=== PATIENT | male | born 1945 | race Two or more races ===

== ENCOUNTER 2024-02-18 13:54 | Inpatient (IN) | payer MEDICAID, OTHER ==
[~2024-02-18] VITALS: Ht 170.2 cm; Wt 92.8 kg
[2024-02-18 15:18] LABS: Basophils # (auto) 0 10 ^3/uL (0-0.2); Basophils % (auto) 0.7 % (0.0-2.0); Eosinophils # (auto) 0.1 10 ^3/uL (0-0.8); Eosinophils % (auto) 1.1 % (0.0-7.0); Hematocrit 39.2 % (41.0-53.0); Hemoglobin 13.3 g/dL (13.5-17.5); Lymphocytes # (auto) 1.4 10 ^3/uL (0.4-5.4); Lymphocytes % (auto) 24.4 % (10.0-50.0); Mean Corpuscular Hemoglobin 30.8 pg (28.0-32.0); Mean Corpuscular Hgb Conc. 33.9 g/dL (32.0-36.0); Mean Corpuscular Volume 90.8 fL (80.0-100.0); Monocytes # (auto) 0.7 10 ^3/uL (0-1.3); Monocytes % (auto) 11.9 % (0.0-12.0); Neutrophils # (auto) 3.5 10 ^3/uL (1.6-8.6); Neutrophils % (auto) 61.9 % (37.0-80.0); Platelet Count (auto) 239 10^3/uL (140-450); Red Blood Cells 4.32 10^6/uL (4.5-5.90); Red Cell Distribution Width 13.5 % (11.8-14.3); White Blood Cell 5.6 10^3/uL (4.4-10.8)
[2024-02-18 15:26] LABS: Chloride 104 mmol/L (98-107); Potassium 4.2 mmol/L (3.5-5.1)
[2024-02-18 15:27] LABS: Anion Gap 4 (5-15); Carbon Dioxide 28 mmol/L (20-31)
[2024-02-18 15:32] LABS: BUN/Creatinine Ratio 20.5 (10.0-20.0); Glucose 101 mg/dL (74-106)
--- NOTE | 2024-02-18 15:36 | DVH ---
Bilateral lower extremity venous duplex Clinical History: LEG SWELLING, HX OF DVT Comparison: None Technique: Duplex doppler evaluation of the deep venous systems of both lower extremities from the common femora l veins to the popliteal veins including color doppler and spectral/pulsed waveform analysis was perf ormed. Findings: RIGHT SIDE: The common femoral vein demonstrates appropriate compressibility and waveform variability. There is compressibility/patency of the great saphenous vein at the proximal thigh. The femoral vein demonstrates appropriate compressibility and waveform variability. The deep femoral vein demonstrates appropriate compressibility and waveform variability. The popliteal vein demonstrates appropriate compressibility and waveform variability. There is normal compressibility at the tibioperoneal trunk. LEFT SIDE: The common femoral vein demonstrates appropriate compressibility and waveform variability. There is compressibility/patency of the great saphenous vein at the proximal thigh. The femoral vein demonstrates appropriate compressibility and waveform variability. The deep femoral vein demonstrates appropriate compressibility and waveform variability. The popliteal vein demonstrates appropriate compressibility and waveform variability. There is normal compressibility at the tibioperoneal trunk. Impression: 1. No right or left femoropopliteal venous thrombosis.
[2024-02-18 15:40] LABS: Blood Urea Nitrogen 24 mg/dL (9-23); Calcium 11.1 mg/dL (8.7-10.4); Sodium 136 mmol/L (136-145); Uric Acid 10.1 mg/dL (3.7-9.2)
--- NOTE | 2024-02-18 17:44 | ED.PDOC ---
Musculoskeletal HPI Comments 78y M who presents to the ED for chief complaint of lower extremity pain. Pt states he has been having RLE swelling for the past 1 week with associated R hand swelling for the past 1 days. Pt states he recently had DVT in L leg in 2023 and got worried and came to the ED for evaluation. Pt does state he was placed on eliquis which he takes to this day. Pt now in the ED, in no noted respiratory distress. Pt otherwise denies any other symptoms at this time. Pt otherwise has noted stable vitals with noted 02 sat of 95% on room air. Pt otherwise denies any other symptoms at this time. Chief Complaint: Lower Extremity Time Seen by MD: 17:39 Reviewed Notes: Medications Allergies: Coded Allergies: NO KNOWN ALLERGIES (Unverified , 02/18/24) Information Source: Patient, Relative Mode of Arrival: Wheelchair Brought in by: daughter Past Medical History Past Medical History (Other): DVT, gout Constitutional: denies: chills, diaphoresis, fatigue, fever, malaise, sweats, weakness, others EENTM: denies: blurred vision, double vision, ear bleeding, ear discharge, ear drainage, ear pain, ear ringing, eye pain, eye redness, hearing loss, mouth pain, mouth swelling, nasal discharge, nose bleeding, nose congestion, nose pain, photophobia, tearing, throat pain, throat swelling, voice changes, others Respiratory: denies: cough, hemoptysis, orthopnea, SOB at rest, shortness of breath, SOB with excertion, stridor, wheezing, others Cardiovascular: denies: chest pain, dizzy spells, diaphoresis, Dyspnea on exertion, edema, irregular heart beat, left arm pain, lightheadedness, palpitations, PND, syncope, others Gastrointestinal: denies: abdomen distended, abdominal pain, blood streaked bowels, constipated, diarrhea, dysphagia, difficulty swallowing, hematemesis, melena, nausea, poor appetite, poor fluid intake, rectal bleeding, rectal pain, vomiting, others Genitourinary: denies: burning, dysuria, flank pain, frequency, hematuria, incontinence, penile discharge, penile sore, pain, testicle pain, testicle swelling, urgency, others Neurological: denies: dizziness, fainting, headache, left sided numbness, left sided weakness, numbness, paresthesia, pre-existing deficit, right sided numbness, right sided weakness, seizure, speech problems, tingling, tremors, weakness, others Musculoskeletal: reports: joint swelling; denies: back pain, gout, joint pain, muscle pain, muscle stiffness, neck pain, others Integumetry: denies: bruises, change in color, change in hair/nails, dryness, laceration, lesions, lumps, rash, wounds, others Allergic/Immunocompromised: denies: Difficulty Healing, Frequent Infections, Hives, Itching, others Hematologic/Lymphatic: denies: anemia, blood clots, easy bleeding, easy bruising, swollen glands, others Endocrine: denies: excessive hunger, excessive sweating, excessive thirst, excessive urination, flushing, intolerance to cold, intolerance to heat, unexplained weight gain, unexplained weight loss, others Psychiatric: denies: anxiety, bipolar disorder, depression, hopeless, panic disorder, schizophrenia, sleepless, suicidal, others All Other Systems: Reviewed and Negative Physical Exam General Appearance: No Apparent Distress, Normal HEENT: Normal ENT Inspection, Pharynx Normal, TMs Normal Neck: Full Range of Motion, Non-Tender, Normal, Normal Inspection Respiratory: Chest Non-Tender, Lungs Clear, No Accessory Muscle Use, No Respiratory Distress, Normal Breath Sounds Cardiovascular: No Edema, No JVD, No Murmur, No Gallop, Normal Peripheral Pulses, Regular Rate/Rhythm Breast Exam: Deferred Gastrointestinal: No Organomegaly, Non Tender, No Pulsatile Mass, Normal Bowel Sounds, Soft Genitalia: Deferred Pelvic: Deferred Rectal: Deferred Extremities: No calf tenderness, Normal capillary refill, Normal inspection, Normal range of motion, Non-tender, No pedal edema Musculoskeletal : Apperance: Normal Neurologic: Alert, 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 Was a procedure done?: No Differential Diagnosis EXT Differential Diagnosis: Cellulitis, CHF, Deep Vein Thrombosis, Gout, DJD, Arthritis Other Differential Diagnosis gout X-Ray, Labs, Meds, VS Vital Signs Date Time Temp Pulse Resp B/P (MAP) Pulse Ox O2 Delivery O2 Flow Rate FiO2 02/18/24 15:37 Room Air* 0 21 02/18/24 15:36 97.9 73 17 111/64 (80) 98 97.9 02/18/24 14:36 97.7 86 16 115/59 (77) 95 Lab Test 02/18/24 15:02 Range/Units White Blood Count 5.6 4.4-10.8 10^3/uL Red Blood Count 4.32 L 4.5-5.90 10^6/uL Hemoglobin 13.3 L 13.5-17.5 g/dL Hematocrit 39.2 L 41.0-53.0 % Mean Corpuscular Volume 90.8 80.0-100.0 fL Mean Corpuscular Hemoglobin 30.8 28.0-32.0 pg Mean Corpuscular Hemoglobin Concent 33.9 32.0-36.0 g/dL Red Cell Distribution Width 13.5 11.8-14.3 % Platelet Count 239 140-450 10^3/uL Mean Platelet Volume 8.1 6.9-10.8 fL Neutrophils (%) (Auto) 61.9 37.0-80.0 % Lymphocytes (%) (Auto) 24.4 10.0-50.0 % Monocytes (%) (Auto) 11.9 0.0-12.0 % Eosinophils (%) (Auto) 1.1 0.0-7.0 % Basophils (%) (Auto) 0.7 0.0-2.0 % Neutrophils # (Auto) 3.5 1.6-8.6 10 ^3/uL Lymphocytes # (Auto) 1.4 0.4-5.4 10 ^3/uL Monocytes # (Auto) 0.7 0-1.3 10 ^3/uL Eosinophils # (Auto) 0.1 0-0.8 10 ^3/uL Basophils # (Auto) 0 0-0.2 10 ^3/uL Nucleated Red Blood Cells 0.0 % Sodium Level 136 136-145 mmol/L Potassium Level 4.2 3.5-5.1 mmol/L Chloride Level 104 98-107 mmol/L Carbon Dioxide Level 28 20-31 mmol/L Anion Gap 4 L 5-15 Blood Urea Nitrogen 24 H 9-23 mg/dL Creatinine 1.17 0.700-1.30 mg/dL Glomerular Filtration Rate Calc 63 >90 mL/min BUN/Creatinine Ratio 20.5 H 10.0-20.0 Serum Glucose 101 74-106 mg/dL Uric Acid 10.1 H 3.7-9.2 mg/dL Calcium Level 11.1 H 8.7-10.4 mg/dL B-Type Natriuretic Peptide 111.60 0-100 pg/mL [facility] [address] [facility] [address] Ph: [phone] DIAGNOSTIC IMAGING Diagnostic Imaging Report : [id number] Signed PATIENT: DALE WALTERS ACCT: [id number] UNIT: [id number] : 1945 LOC: ER ROOM / BED: / AGE / SEX: 78 / M ADM STATUS: REG ER SERVICE 0000 ORDERING PHYSICIAN: KEN CARTAGENA MD PROCEDURE(s): BLDVT - BiLat Lower DVT REASON: LEG SWELLING, HX OF DVT ORDER NUMBER(s): [id number], ACCESSION NUMBER(s): [id number] Bilateral lower extremity venous duplex Clinical History: LEG SWELLING, HX OF DVT Comparison: None Technique: Duplex doppler evaluation of the deep venous systems of both lower extremities from the common femoral veins to the popliteal veins including color doppler and spectral/pulsed waveform analysis was performed. Findings: RIGHT SIDE: The common femoral vein demonstrates appropriate compressibility and waveform variability. There is compressibility/patency of the great saphenous vein at the proximal thigh. The femoral vein demonstrates appropriate compressibility and waveform variability. The deep femoral vein demonstrates appropriate compressibility and waveform variability. The popliteal vein demonstrates appropriate compressibility and waveform variability. There is normal compressibility at the tibioperoneal trunk. LEFT SIDE: The common femoral vein demonstrates appropriate compressibility and waveform variability. There is compressibility/patency of the great saphenous vein at the proximal thigh. The femoral vein demonstrates appropriate compressibility and waveform variability. The deep femoral vein demonstrates appropriate compressibility and waveform variability. The popliteal vein demonstrates appropriate compressibility and waveform variability. There is normal compressibility at the tibioperoneal trunk. Impression: 1. No right or left femoropopliteal venous thrombosis. ATED BY: SAGE OCAMPO MD DICTATED DATE/TIME: 02/18/24 1534 SIGNED BY: SAGE OCAMPO MD SIGNED DATE/TIME: 02/18/24 1534 CC: Time of 1ST Reevaluation: 18:10 Reevaluation 1ST: Unchanged Patient Education/Counseling: Diagnosis, Treatment Family Education/Counseling: Diagnosis, Treatment Additional Information - I reviewed the following notes from patient's past medical encounters: - The following tests were ordered, and results were reviewed by me: (Labs, X- Ray, EKG): bilateral lower DVT, CBC, BNP, BMP, uric acid - Additional information was gathered from interviewing the following independent Historian: (Family, Other Providers, EMT): daughter - I reviewed and agreed with the following test results read by other provider: (X-ray, CT, US): radiologist - I discussed treatments and results with medical personnel and: (consultants, family): none Departure 1 Departure Time of Disposition: 20:06 (Patient with worsening weakness and lower extremity edema a workup so far is fairly benign. We will admit patient for further workup) Impression: Primary Impression: Generalized weakness Additional Impression: Extremity edema Disposition: ADMITTED INPATIENT Admit to: Med Surg Condition: Serious Critical Care Note Critical Care Time?: No Stability Stability form required: No Heart Score Heart Score: Heart Score Response (Comments) Value History N/A 0 EKG N/A 0 Age N/A 0 Risk Factors N/A 0 Troponin N/A 0 Total 0 I personally scribed for KEN CARTAGENA MD ([email or web address]) on 02/18/24 at 17:44. Electronically submitted by Julia Martinez ([facility]). KEN CARTAGENA MD Feb 18, 2024 17:44
[2024-02-18 20:57] LABS: Urine Bacteria None Seen /hpf (None Seen)
[2024-02-18 21:47] LABS: Urine Blood Negative /uL (Negative); Urine Clarity Clear (Clear); Urine Color Yellow (Yellow); Urine Protein, UAD Negative (Negative); Urine Specific Gravity 1.018 (1.001-1.035); Urine Squamous Epithelial Cell None Seen /hpf (<5); Urine Urobilinogen Normal (Negative); Urine WBC 1 /hpf (0 - 3); Urine pH 6.5 (5.0-9.0)
--- NOTE | 2024-02-18 23:01 | DVHHPRES ---
History of Present Illness Resident Creating Document: TIM SUAREZ RESIDENT History of Present Illness This is a 78-year-old male with past medical history of hypertension, hyperlipidemia, CHF, CKD, gout, DVT presented to the ED with a chief complaint of swelling of the right leg and right hand for 1 week prior to this admission. The patient states that he had an gout attack 2 months ago and he was on corticosteroid for 6 weeks and after discontinuation of corticosteroid he started having the right hand swelling and pain. The patient mentioned diagnosed with DVT of the right leg few months ago and Eliquis since then and he also noticed increased swelling of the right leg. He went to urgent care and they referred the patient to the ED of the [facility] for further assessment and management of right leg swelling. The patient denies chest pain, shortness of breath, dizziness, diaphoresis nausea vomiting change in bowel and bladder movement. Past Medical History Hypertension, hyperlipidemia, CHF, gout, DVT, CKD Past Surgical History Left knee surgery Family History None Past Social History Lives with Family Nonsmoker, nonalcoholic and never tried any drugs Review of Systems Constitutional: No: Fever, Chills, Sweats, Weakness, Malaise, Other Eyes: No: Pain, Vision change, Conjunctivae inflammation, Eyelid inflammation, Other, Redness ENT: No: Ear pain, Ear discharge, Nose pain, Nose discharge, Nose congestion, Mouth pain, Mouth swelling, Throat pain, Throat swelling, Other Respiratory: No: Cough, Dry, Shortness of breath, SOB with excertion, Wheezing, Hemoptysis, Pleuritic Pain, Sputum, Wheezing, Other Cardiovascular: No: Chest Pain, Palpitations, Orthopnea, Paroxysmal Noc. Dyspnea, Edema, Lt Headedness, Other Gastrointestinal: No: Nausea, Vomiting, Abdominal Pain, Diarrhea, Constipation, Melena, Hematochezia, Other Genitourinary: No Dysuria; Frequency; No Incontinence, No Hematuria, No Retention, No Other Musculoskeletal: hand pain, leg pain; No: other, neck pain, shoulder pain, arm pain, back pain, foot pain Skin: No: Rash, Lesions, Jaundice, Bruising, Other Neurological: No: Weakness, Numbness, Incoordination, Change in speech, Confusion, Seizures, Other Allergies: Coded Allergies: NO KNOWN ALLERGIES (Unverified , 02/18/24) Medications Current Medications Medications Dose Ordered Sig/Charlette Route Start Time Stop Time Status Last Admin Dose Admin Colchicine 0.6 mg Q12HR PO 02/19/24 10:00 UNV Exam Vital Signs Vital Signs Date Time Temp Pulse Resp B/P (MAP) Pulse Ox O2 Delivery O2 Flow Rate FiO2 02/18/24 15:37 Room Air* 0 21 02/18/24 15:36 97.9 73 17 111/64 (80) 98 97.9 Exam Physical examination: General Appearance: Alert, Oriented X3, Cooperative, No acute distress HEENT: Atraumatic, PERRLA, EOMI, Mucous membrane moist/pink Respiratory: Clear to auscultation, Normal air movement Cardiovascular: Regular rate, Normal S1, Normal S2, No murmurs, no chest wall tenderness Abdominal: Normal bowel sounds, Soft, No tenderness, No hepatospenomegaly, No masses Extremities: Right hand swelling, bilateral nonpitting edema, stasis dermatitis, No clubbing, No cyanosis, Normal pulses. Skin: No rashes, No breakdown, No significant lesion Neuro: Normal gait, Normal speech, Strength at 5/5 X4 ext, Normal tone, Sensation intact, grossly intact cranial nerves. Psych/Mental Status: Mental status NL, Mood NL Labs/Xrays Labs Test 02/18/24 20:56 02/18/24 15:02 Range/Units Urine Color Yellow Yellow Urine Clarity Clear Clear Urine pH 6.5 5.0-9.0 Urine Specific [place] 1.018 1.001-1.035 Urine Protein Negative Negative Urine Ketones Negative Negative Urine Blood Negative Negative /uL Urine Nitrite Negative Negative Urine Bilirubin Negative Negative Urine Urobilinogen Normal Negative mg/dL Urine Leukocyte Esterase Negative Negative /uL Urine RBC 5 0 - 3 /hpf Urine WBC 1 0 - 3 /hpf Urine Squamous Epithelial Cells None seen <5 /hpf Urine Bacteria None seen None Seen /hpf Urine Glucose Normal Normal mg/dL White Blood Count 5.6 4.4-10.8 10^3/uL Red Blood Count 4.32 L 4.5-5.90 10^6/uL Hemoglobin 13.3 L 13.5-17.5 g/dL Hematocrit 39.2 L 41.0-53.0 % Mean Corpuscular Volume 90.8 80.0-100.0 fL Mean Corpuscular Hemoglobin 30.8 28.0-32.0 pg Mean Corpuscular Hemoglobin Concent 33.9 32.0-36.0 g/dL Red Cell Distribution Width 13.5 11.8-14.3 % Platelet Count 239 140-450 10^3/uL Mean Platelet Volume 8.1 6.9-10.8 fL Neutrophils (%) (Auto) 61.9 37.0-80.0 % Lymphocytes (%) (Auto) 24.4 10.0-50.0 % Monocytes (%) (Auto) 11.9 0.0-12.0 % Eosinophils (%) (Auto) 1.1 0.0-7.0 % Basophils (%) (Auto) 0.7 0.0-2.0 % Neutrophils # (Auto) 3.5 1.6-8.6 10 ^3/uL Lymphocytes # (Auto) 1.4 0.4-5.4 10 ^3/uL Monocytes # (Auto) 0.7 0-1.3 10 ^3/uL Eosinophils # (Auto) 0.1 0-0.8 10 ^3/uL Basophils # (Auto) 0 0-0.2 10 ^3/uL Nucleated Red Blood Cells 0.0 % Sodium Level 136 136-145 mmol/L Potassium Level 4.2 3.5-5.1 mmol/L Chloride Level 104 98-107 mmol/L Carbon Dioxide Level 28 20-31 mmol/L Anion Gap 4 L 5-15 Blood Urea Nitrogen 24 H 9-23 mg/dL Creatinine 1.17 0.700-1.30 mg/dL Glomerular Filtration Rate Calc 63 >90 mL/min BUN/Creatinine Ratio 20.5 H 10.0-20.0 Serum Glucose 101 74-106 mg/dL Uric Acid 10.1 H 3.7-9.2 mg/dL Calcium Level 11.1 H 8.7-10.4 mg/dL B-Type Natriuretic Peptide 111.60 0-100 pg/mL Assessment/Plan Assessment/Plan Assessment and plan: # Acute gout flare-up - Serum uric acid is 10.1 - Colchicine 0.6 mg p.o. b.i.d. # Chronic CHF - BNP is mildly elevated - Ordered chest x-ray, echo - Continue metoprolol succinate 25 mg p.o. daily - Hold Lasix due to flare-up of gout. # History of DVT - Continue Eliquis 5 mg p.o. b.i.d. # Hypercalcemia likely due to dehydration - IV normal saline 1 L at 60 mL/hr once. # Stage 2 CKD - Strict I/O - Avoid nephrotoxic medication # Dyslipidemia - Continue ezetimibe 10 mg p.o. daily Goal of care discussed with the patient for more than 17 minutes full code Plan discussed with Dr. Gooden Plan discussed with: Patient, Other My Orders Orders - TIM SUAREZ Procedure Category Date Status Time Admit ADMIT 02/18/24 Transmitted 22:04 Colchicine (Colcrys) PHA 02/18/24 Logged 23:00 Colchicine (Colcrys) PHA 02/19/24 Logged 10:00 Chest Portable XY 02/18/24 Logged 22:56 Echo 2d Mode Cardiac US 02/18/24 Logged DOP 22:56 Hemoglobin A1c LAB 02/18/24 Logged 22:56 Date of Service: Feb 18, 2024 Billing Provider: DAVID GOODEN MD Common Visit Codes: 05359-[id number] INP/OBS CARE (HIGH) Secondary Visit Codes: 58855-[id number] CARE PLAN 30 MINUTES TIM SUAREZ Feb 18, 2024 23:01 DAVID GOODEN MD Feb 19, 2024 11:21
[2024-02-18] MEDS: COLCHICINE 0.6 MG CAP PO ONE (23:32)
[2024-02-19] MEDS ORDERED: PHEN1CAP38 PO (00:01)
[2024-02-19] MEDS ORDERED: FOLI5CAP PO (00:03)
[2024-02-19] MEDS ORDERED: EZET10TA22 PO (00:09)
[2024-02-19] MEDS ORDERED: MID10T PO (00:09)
[2024-02-19] MEDS ORDERED: TAMS0.4C39 PO (00:09)
[2024-02-19] MEDS ORDERED: FINA5TAB4 PO (00:09)
[2024-02-19] MEDS ORDERED: FURO40TA4 PO (00:10)
[2024-02-19] MEDS ORDERED: METO10TA7 PO (00:12)
[2024-02-19] MEDS ORDERED: APIX5TAB PO (00:14)
[2024-02-19] MEDS: SODIUM CHLORIDE 0.9% 1,000 ML IV ONE (02:30)
[2024-02-19 03:35] LABS: Rapid Influenza A Negative (Negative); Rapid Influenza B Negative (Negative)
[2024-02-19 03:36] LABS: COVID19 ANTIGEN SOFIA FIA NEGATIVE (NEGATIVE)
[2024-02-19 05:00] VITALS: BP 130/77; PULSE 90; RESP 19; O2SAT 93
--- NOTE | 2024-02-19 07:13 | DVH ---
CHEST RADIOGRAPH Indication: shortness of breath Technique: Single frontal view of the chest was obtained Comparison: None FINDINGS: Lines and Tubes: None Lungs: No focal consolidation. Pleura: No effusion. No pneumothorax. Cardiomediastinal contours: Unremarkable Bones: No acute osseous abnormality. IMPRESSION: Pulmonary edema
[2024-02-19 08:48] VITALS: BP 101/57; PULSE 82; RESP 18; TEMP 98.1; O2SAT 95
[2024-02-19] MEDS ORDERED: METOPROLOL SUCCINATE XL 50 MG TAB PO SCH (10:00)
[2024-02-19] MEDS ORDERED: COLCHICINE 0.6 MG CAP PO SCH (10:00)
--- NOTE | 2024-02-19 10:26 | DVHDS2 ---
Discharge Summary Date of Admission Feb 18, 2024 at 22:04 Date of Discharge: Feb 19, 2024 Labs/Diagnostic Data: Laboratory Results Test 02/19/24 02:16 02/18/24 20:56 02/18/24 15:02 Influenza Type A Antigen Negative (Negative) Influenza Type B Antigen Negative (Negative) SARS-CoV-2 Antigen (Rapid) Negative (NEGATIVE) Urine Color Yellow (Yellow) Urine Clarity Clear (Clear) Urine pH 6.5 (5.0-9.0) Urine Specific [place] 1.018 (1.001-1.035) Urine Protein Negative (Negative) Urine Ketones Negative (Negative) Urine Blood Negative /uL (Negative) Urine Nitrite Negative (Negative) Urine Bilirubin Negative (Negative) Urine Urobilinogen Normal mg/dL (Negative) Urine Leukocyte Esterase Negative /uL (Negative) Urine RBC 5 /hpf (0 - 3) Urine WBC 1 /hpf (0 - 3) Urine Squamous Epithelial Cells None seen /hpf (<5) Urine Bacteria None seen /hpf (None Seen) Urine Glucose Normal mg/dL (Normal) White Blood Count 5.6 10^3/uL (4.4-10.8) Red Blood Count 4.32 10^6/uL (4.5-5.90) Hemoglobin 13.3 g/dL (13.5-17.5) Hematocrit 39.2 % (41.0-53.0) Mean Corpuscular Volume 90.8 fL (80.0-100.0) Mean Corpuscular Hemoglobin 30.8 pg (28.0-32.0) Mean Corpuscular Hemoglobin Concent 33.9 g/dL (32.0-36.0) Red Cell Distribution Width 13.5 % (11.8-14.3) Platelet Count 239 10^3/uL (140-450) Mean Platelet Volume 8.1 fL (6.9-10.8) Neutrophils (%) (Auto) 61.9 % (37.0-80.0) Lymphocytes (%) (Auto) 24.4 % (10.0-50.0) Monocytes (%) (Auto) 11.9 % (0.0-12.0) Eosinophils (%) (Auto) 1.1 % (0.0-7.0) Basophils (%) (Auto) 0.7 % (0.0-2.0) Neutrophils # (Auto) 3.5 10 ^3/uL (1.6-8.6) Lymphocytes # (Auto) 1.4 10 ^3/uL (0.4-5.4) Monocytes # (Auto) 0.7 10 ^3/uL (0-1.3) Eosinophils # (Auto) 0.1 10 ^3/uL (0-0.8) Basophils # (Auto) 0 10 ^3/uL (0-0.2) Nucleated Red Blood Cells 0.0 % Sodium Level 136 mmol/L (136-145) Potassium Level 4.2 mmol/L (3.5-5.1) Chloride Level 104 mmol/L (98-107) Carbon Dioxide Level 28 mmol/L (20-31) Anion Gap 4 (5-15) Blood Urea Nitrogen 24 mg/dL (9-23) Creatinine 1.17 mg/dL (0.700-1.30) Glomerular Filtration Rate Calc 63 mL/min (>90) BUN/Creatinine Ratio 20.5 (10.0-20.0) Serum Glucose 101 mg/dL (74-106) Hemoglobin A1c 5.5 % A1C (<5.7) Uric Acid 10.1 mg/dL (3.7-9.2) Calcium Level 11.1 mg/dL (8.7-10.4) B-Type Natriuretic Peptide 111.60 pg/mL (0-100) Thyroid Stimulating Hormone (TSH) 0.92 uIU/mL (0.55-4.78) Other Laboratory Tests 02/18/24 15:02 Brief Hx & Hospital Course: see dictated note Condition at Discharge: Fair Final Diagnosis/Problems List gout Discharge Disposition: Home Discharge Instruct/Medications Diet: Cardiac 2g Na,low cholest Activity: No Restrictions, As Tolerated Follow Up/Referral: fu with pcp in 1 wk Medications: resume home meds script to pharmacy Discharge Statement: "Patient was advised to return to the ER or call 911 if any headaches, dizziness, shortness of breath, chest pain, abdominal pain, bleeding, fevers, or worsening of medical condition. Patient was counseled about treatment plan, medications, possible side effects, patientverbalized understanding. All questions were answered to the best of my ability. This discharge took greater then 30 minutes in planning, reviewing documentation, counseling the patient, and discussing with other team members." ASSESSMENT ASSESSMENT Assessment gout Date of Service: Feb 19, 2024 Billing Provider: NINA BULLARD MD Common Visit Codes: 28822-VTQ/OBS DAY >30min Secondary Visit Codes: [id number] CARE PLAN 30 MINUTES NINA BULLARD MD Feb 19, 2024 10:26
[2024-02-19] MEDS ORDERED: ALLO100T PO (10:32)
[2024-02-19] MEDS ORDERED: PRED20TA2 PO (10:32)
[2024-02-19] MEDS: methylPREDNISolone SOD SUCC 40 MG/ML VL IV ONE (10:47)
[2024-02-19] MEDS: APIXABAN 5 MG TAB PO SCH (10:47)
[2024-02-19] MEDS: EZETIMIBE 10 MG TAB PO SCH (10:48)
[2024-02-19] MEDS: MIDODRINE HCL 10 MG TAB PO ONE (10:48)
[2024-02-19] MEDS: PHENYTOIN SODIUM 100 MG CAP PO SCH (10:48)
[2024-02-19] MEDS: FINASTERIDE 5 MG TAB PO SCH (10:48)
--- NOTE | 2024-02-19 10:50 | DVHDS ---
DATE OF DISCHARGE: 02/19/2024 HISTORY OF PRESENT ILLNESS: The patient is a 78-year-old gentleman who was admitted with swelling of the right hand and right leg and has previous history of gout attacks. The patient also has history of congestive heart failure, hyperlipidemia, chronic kidney disease, atrial fibrillation and left knee surgery. HOSPITAL COURSE: The patient's creatinine was 1.17. Uric acid is elevated at 10.1. The patient was initially given colchicine. Influenza test was negative. The patient had a Doppler of lower extremity that was negative for DVT. Chest x-ray showed mild pulmonary venous congestion. The patient will now be discharged home as per family request to be on allopurinol 100 mg daily and prednisone 20 mg daily for 5 days. He will follow up with his primary in 1 week. FINAL DIAGNOSES: * Flareup of gout. * Acute on chronic systolic/diastolic heart failure. * Chronic kidney disease stage III. * Obesity. * Benign prostatic hypertrophy. * Atrial fibrillation with secondary hypercoagulable state. * Seizure disorder. * Benign prostatic hypertrophy. * Orthostatic hypotension. Time spent in discharge planning including discussion with son in detail was 39 minutes. Advance care planning, the patient is a full code. Time spent was 19 minutes. MD KASEY Johnson/ESTEE TID: [id number] RECEIPT: [id number]
[2024-02-19 13:02] VITALS: BP 133/66; PULSE 71; RESP 18; TEMP 97.6; O2SAT 96
[2024-02-19] MEDS: MIDODRINE HCL 10 MG TAB PO SCH (15:17)
[2024-02-19 16:59] VITALS: TEMP 36.4
[2024-02-19 17:12] VITALS: BP 108/57; PULSE 64; RESP 16; TEMP 98; O2SAT 94
[2024-02-19] MEDS ORDERED: TAMSULOSIN HYDROCHLORIDE 0.4 MG CAP PO SCH (18:00)
[2024-02-19] MEDS ORDERED: methylPREDNISolone SOD SUCC 40 MG/ML VL IV SCH (22:00)
[2024-02-20] MEDS ORDERED: FUROSEMIDE 40 MG TAB PO SCH (10:00)
== END 2024-02-19 17:40 | disposition home or self-care (01) | DRG 351 ==
LOC: ER 13:54 → OVERFLOW 22:04 → CENTRAL 02-19 01:50
PROVIDERS: ATTEND Internal Medicine
DX: M10.9 Gout, unspecified (principal); I50.43 Acute on chronic combined systolic (congestive) and diastolic (congestive) heart failure; D68.69 Other thrombophilia; I48.91 Unspecified atrial fibrillation; G40.909 Epilepsy, unspecified, not intractable, without status epilepticus; E66.9 Obesity, unspecified; I13.0 Hypertensive heart and chronic kidney disease with heart failure and stage 1 through stage 4 chronic kidney disease, or unspecified chronic kidney disease; Z20.822 Contact with and (suspected) exposure to COVID-19; E78.5 Hyperlipidemia, unspecified; E83.52 Hypercalcemia; N18.30 Chronic kidney disease, stage 3 unspecified; N40.0 Benign prostatic hyperplasia without lower urinary tract symptoms; I95.1 Orthostatic hypotension; Z86.718 Personal history of other venous thrombosis and embolism; Z68.32 Body mass index [BMI] 32.0-32.9, adult; Z79.899 Other long term (current) drug therapy
CPT/HCPCS: 36415; 71045; 80048; 81001; 83036; 83880; 84443; 84550; 85025; 87426; 87804; 93970; G0378

== ENCOUNTER 2024-07-21 14:37 | Emergency (ER) | payer MEDICAID ==
[~2024-07-21] VITALS: Ht 157.5 cm; Wt 97.0 kg
[~2024-07-21 14:37] MED LIST: ALLO100T PO; APIX5TAB PO; EZET10TA22 PO; FINA5TAB4 PO; FOLI5CAP PO; FURO40TA4 PO; METO10TA7 PO; MID10T PO; PHEN1CAP38 PO; PRED20TA2 PO; TAMS0.4C39 PO
[2024-07-21 16:03] LABS: Urine Bacteria None Seen /hpf (None Seen)
--- NOTE | 2024-07-21 16:08 | ED.PDOC ---
Back pain HPI HPI Comments A 78-year-old male with a past medical history of Gout, DVT, CKF brought in by son presents to the emergency department with a chief complaint of back pain onset 1 month. Son states patient has been experiencing non radiating LT upper back pain for the past month, worsen the past 2 days, has caused nausea/vomiting due to pain. Patient has taken Tylenol for pain with temporary relief of symptoms, last dose was this morning around 07:00. Noticed pain is improved with massage. No other symptoms or modifying factors present at this time. Denies history of chronic steroid use or history of osteoporosis Denies any history of cancer Denies fevers chills night sweats unintentional weight loss Denies IV drug use history of HIV/TB Denies abdominal "tearing" pain Denies syncope Denies urinary incontinence or urinary changes Denies numbness tingling of the groin or inner thigh Denies previous back procedure or surgery Denies fall injury trauma Chief Complaint: Back Pain Time Seen by MD: 15:45 Primary Care Provider: Osmin Spicer Notes: Medications, Allergies Allergies: Coded Allergies: NO KNOWN ALLERGIES (Unverified , 02/18/24) Home Meds Active Scripts Diclofenac Sodium (Topical) (Voltaren Arthritis Pain) 1 % Gel, 1 APPLIC EX Q6HP PRN for 30 Days, #60 GRAMS 0 Refills Prov:VICKIE RIOS NP 07/21/24 Lidocaine (LIDODERM 5% TOPICAL PATCH) 1 Patch Ph, 1 PATCH TOP DAILY for 30 Days, #30 PATCH 0 Refills Prov:VICKIE ROIS NP 07/21/24 Hydrocodone-Acetaminophen (Hydrocodone Bitartrate/AC 5-325 mg) 1 Tab Tab, 1 TAB PO Q12HP PRN for 2 Days, #4 TAB 0 Refills Prov:VICKIE RIOS NP 07/21/24 Allopurinol (Allopurinol) 100 Mg Tab, 100 MG PO DAILY for 30 Days, #30 TAB 3 Refills Prov:NINA BULLARD MD 02/19/24 Prednisone (Prednisone) 20 Mg Tab, 20 MG PO QAM for 5 Days, #10 MG Prov:NINA BULLARD MD 02/19/24 Reported Medications Apixaban Base (ELIQUIS) 5 Mg Tab, 10 MG PO BID for 7 Days, TAB 10MG BID X 7 DAYS THEN 5MG PO BID FOR AT LEAST 6 MONTHS FOR DVT/PE TREATMENT 02/19/24 Metolazone (Metolazone) 10 Mg Tab, 10 MG PO QAM for 30 Days, MG 02/19/24 Furosemide (Furosemide) 40 Mg Tab, 40 MG PO DAILY for 30 Days, MG 02/19/24 Midodrine HCl (Midodrine HCl) 10 Mg Tab, 5 MG PO TIDPRN, TAB 02/19/24 Ezetimibe (Zetia) 10 Mg Tab, 1 TAB PO DAILY, #30 TAB 5 Refills 02/19/24 Tamsulosin Hcl (Tamsulosin Hcl) 0.4 Mg Cap, 0.8 MG PO QAM for 30 Days, MG 02/19/24 Finasteride (Finasteride) 5 Mg Tab, 5 MG PO DAILY for 30 Days, MG 02/19/24 Folic Acid (Folic Acid) 5 Mg Cap, 5 MG PO BID, CAP 02/19/24 Phenytoin Sodium (DILANTIN CAPSULE) 100 Mg Cp, 100 MG PO BID, CAP 02/19/24 Information Source: Patient, Relative (Child) Mode of Arrival: Wheelchair Timing: Months Duration: Since onset Location of Back pain: (L) Upper back Severity: Moderate Prehospital treatment: Pain Meds (Tylenol) Quality: Sharp Onset: Spontaneous History of: None Modifying Factors: Nothing Past Medical History PAST MEDICAL HISTORY: CKF, Gout Past Medical History (Other): DVT Surgical History: Denies all surgeries Family History Family History: Reviewed,noncontributory to illness, No family hx of Cancer, No family hx of DM, No family hx of Heart zunilda, No family hx of HTN, No family hx ofKidney zunilda, No family hx of Liver zunilda, No family hx of Lung zunilda, No family hx of Stroke Social History Smoker: Non-Smoker Alcohol: Denies ETOH Use Drugs: Denies Drug Use Lives In: Home All Other Systems: Reviewed and Negative (as per HPI) Physical Exam General Appearance: No Apparent Distress, Normal HEENT: Normal ENT Inspection, Pharynx Normal, TMs Normal Neck: Full Range of Motion, Non-Tender, Normal, Normal Inspection Respiratory: Chest Non-Tender, Lungs Clear, No Accessory Muscle Use, No Respir atory Distress, Normal Breath Sounds Cardiovascular: No Edema, No JVD, No Murmur, No Gallop, Normal Peripheral Pulses, Regular Rate/Rhythm Breast Exam: Deferred Gastrointestinal: No Organomegaly, Non Tender, No Pulsatile Mass, Normal Bowel Sounds, Soft Genitalia: Deferred Pelvic: Deferred Rectal: Deferred Extremities: No calf tenderness, Normal capillary refill, No pedal edema Musculoskeletal : Location: Left Extremity Location: Back (paraspinal region and below Infraspinatus muscle with TTP, no midline TTP), Other (no bilateral CVA TTP) Apperance: Normal Neurologic: Alert, technical business analyst II-XII nml as Tested, No Motor Deficits, Normal Affect, Normal Mood, No Sensory Deficits Cerebellar Function: Normal Reflexes: Normal Skin: Dry, Normal Color, Warm Lymphatic: No Adenopathy Was a procedure done? Was a procedure done?: No Back Pain Differential Dx Differential Diagnosis: Musculoskeletal Pain, Urinary Tract Infection, Urolithiasis, Other X-Ray, Labs, Meds, VS Vital Signs Date Time Temp Pulse Resp B/P (MAP) Pulse Ox O2 Delivery O2 Flow Rate FiO2 07/21/24 17:58 98.0 96 15 106/64 (78) 98 98.0 07/21/24 15:42 94 16 98 Room Air 07/21/24 15:42 98.3 94 16 98/51 (67) 98 98.3 07/21/24 15:11 98.3 94 16 98/57 (71) 98 98.3 07/21/24 15:10 85 Lab Test 07/21/24 16:34 07/21/24 16:02 Range/Units White Blood Count 6.0 4.4-10.8 10^3/uL Red Blood Count 5.02 4.5-5.90 10^6/uL Hemoglobin 14.2 13.5-17.5 g/dL Hematocrit 42.3 41.0-53.0 % Mean Corpuscular Volume 84.2 80.0-100.0 fL Mean Corpuscular Hemoglobin 28.2 28.0-32.0 pg Mean Corpuscular Hemoglobin Concent 33.4 32.0-36.0 g/dL Red Cell Distribution Width 16.0 H 11.8-14.3 % Platelet Count 160 140-450 10^3/uL Mean Platelet Volume 8.9 6.9-10.8 fL Neutrophils (%) (Auto) 62.7 37.0-80.0 % Lymphocytes (%) (Auto) 23.9 10.0-50.0 % Monocytes (%) (Auto) 11.5 0.0-12.0 % Eosinophils (%) (Auto) 1.2 0.0-7.0 % Basophils (%) (Auto) 0.7 0.0-2.0 % Neutrophils # (Auto) 3.7 1.6-8.6 10 ^3/uL Lymphocytes # (Auto) 1.4 0.4-5.4 10 ^3/uL Monocytes # (Auto) 0.7 0-1.3 10 ^3/uL Eosinophils # (Auto) 0.1 0-0.8 10 ^3/uL Basophils # (Auto) 0 0-0.2 10 ^3/uL Nucleated Red Blood Cells 0.1 % Sodium Level 137 136-145 mmol/L Potassium Level 3.5 3.5-5.1 mmol/L Chloride Level 100 98-107 mmol/L Carbon Dioxide Level 29 20-31 mmol/L Anion Gap 8 5-15 Blood Urea Nitrogen 38 H 9-23 mg/dL Creatinine 1.52 H 0.700-1.30 mg/dL Glomerular Filtration Rate Calc 46 >90 mL/min BUN/Creatinine Ratio 25.0 H 10.0-20.0 Serum Glucose 125 H 74-106 mg/dL Calcium Level 10.4 8.7-10.4 mg/dL Troponin I High Sensitivity 18 </=54 ng/L Lipase 32 12-53 U/L Urine Color Light-yellow Yellow Urine Clarity Clear Clear Urine pH 6.0 5.0-9.0 Urine Specific [place] 1.012 1.001-1.035 Urine Protein Negative Negative Urine Ketones Negative Negative Urine Blood Negative Negative /uL Urine Nitrite Negative Negative Urine Bilirubin Negative Negative Urine Urobilinogen Normal Negative mg/dL Urine Leukocyte Esterase Negative Negative /uL Urine RBC 1 0 - 3 /hpf Urine Microscopic WBC 1 0-3 /HPF Urine Squamous Epithelial Cells Few <5 /hpf Urine Bacteria None seen None Seen /hpf Urine Glucose Normal Normal mg/dL Current Medications Medications (Trade) Dose Ordered Sig/Charlette Route Start Time Stop Time Status Last Admin Acetaminophen/ Hydrocodone Bitart ([place] 5/325MG Tab) 1 tab ONCE ONCE PO 07/21/24 18:00 07/21/24 18:01 DC 07/21/24 17:56 X-Ray, Labs, Meds, VS Comment A 78-year-old male with a past medical history of Gout, DVT, CKF brought in by son presents to the emergency department with a chief complaint of back pain onset 1 month. Patient arrives alert and oriented, ABC's intact, afebrile, vital signs stable, saturating well in room air CBC was ordered to exclude anemia, blood loss, or infection. BMP was ordered to exclude electrolyte abnormalities, renal failure, dehydration, hyperglycemia Troponin and BNP were ordered to rule out myocardial infarction, or congestive heart failure. Urinalysis was ordered to rule out UTI or hematuria. I considered cauda equina, spinal cord compression, vertebral malignancy/mets, acute spinal fracture, vertebral osteomyelitis, epidural abscess, infected or obstructed kidney stone, however this is less likely as the patient does not present with lower back pain red flags symptoms such as bowel or bladder dysf unction, saddle anesthesia, paresthesia, and without any history of malignancy or recent back trauma or spinal interventions. ED workup: Defer imaging and lab work for outpatient follow up at this time Disposition: Discharge. Strict return precautions discussed with the patient with full understanding. Supportive care advised Massage muscles with cold pack or ice for 20 minutes 4 times per day. Usually most useful if there is swelling during the first 48 hours Heating pad on the most painful area for 20 minutes to relieve muscle spasm Sleep and the most comfortable sleeping position (usually on the side with knees bent) Light stretching, no strenuous activity, avoid frequent bending, avoid carrying heavy objects Discussed possible benefits of yoga and acupuncture Checked the [facility] website, no history of narcotic use within the past year. Will prescribe [place] p.o. for pain management. Education provided on possible side effects of medication including drowsiness, nausea, respiratory distress, etc. Follow-up with your PMD within 24 to 48 hours. Return precautions discussed including Inability to walk/bear weight Paresthesia/weakness/leg pain Fecal/urinary incontinence Any worsening symptoms Additional MDM Review of External, Non-ED records: External records reviewed. Discussion with independent historian (EMS, family) history obtained from the patient/parents (if applicable) at bedside Chronic conditions affecting care: DVT, gout, CKF Social determinants of health affecting care: None Consideration of admission (observation or admission): I considered escalation of care to admission for this patient, however given the reassuring workup, the patient is safe for outpatient management. Time of 1ST Reevaluation: 16:15 Reevaluation 1ST: Unchanged Patient Education/Counseling: Diagnosis, Treatment, Need For Follow Up Family Education/Counseling: Diagnosis, Treatment, Need For Follow Up Departure 1 Departure Time of Disposition: 18:18 Impression: Primary Impression: Left paraspinal back pain Disposition: HOME / SELF CARE / HOMELESS Condition: Fair e-Prescriptions Diclofenac Sodium (Topical) (Voltaren Arthritis Pain) 1 % Gel 1 APPLIC EX Q6HP PRN for 30 Days, #60 GRAMS 0 Refills Prov: VICKIE RIOS NP 07/21/24 Lidocaine (LIDODERM 5% TOPICAL PATCH) 1 Patch Ph 1 PATCH TOP DAILY for 30 Days, #30 PATCH 0 Refills Prov: VICKIE RIOS NP 07/21/24 Hydrocodone-Acetaminophen (Hydrocodone Bitartrate/AC 5-325 mg) 1 Tab Tab 1 TAB PO Q12HP PRN for 2 Days, #4 TAB 0 Refills Prov: VICKIE RIOS NP 07/21/24 Critical Care Note Critical Care Time?: No Stability Stability form required: No Heart Score Heart Score: Heart Score Response (Comments) Value History N/A 0 EKG N/A 0 Age N/A 0 Risk Factors N/A 0 Troponin N/A 0 Total 0 I personally scribed for VICKIE RIOS NP ([email or web address]) on 07/21/24 at 16:08. Electronically submitted by Christa Villeda ([email or web address]). VICKIE RIOS NP Jul 21, 2024 16:08
[2024-07-21 16:18] LABS: Urine Blood Negative /uL (Negative); Urine Clarity Clear (Clear); Urine Color Light-Yellow (Yellow); Urine Protein, UAD Negative (Negative); Urine Specific Gravity 1.012 (1.001-1.035); Urine Squamous Epithelial Cell FEW /hpf (<5); Urine Urobilinogen Normal (Negative); Urine WBC 1 /HPF (0-3)
[2024-07-21 16:57] LABS: Basophils # (auto) 0 10 ^3/uL (0-0.2); Basophils % (auto) 0.7 % (0.0-2.0); Eosinophils # (auto) 0.1 10 ^3/uL (0-0.8); Eosinophils % (auto) 1.2 % (0.0-7.0); Hematocrit 42.3 % (41.0-53.0); Hemoglobin 14.2 g/dL (13.5-17.5); Lymphocytes # (auto) 1.4 10 ^3/uL (0.4-5.4); Lymphocytes % (auto) 23.9 % (10.0-50.0); Mean Corpuscular Hemoglobin 28.2 pg (28.0-32.0); Mean Corpuscular Hgb Conc. 33.4 g/dL (32.0-36.0); Mean Corpuscular Volume 84.2 fL (80.0-100.0); Monocytes # (auto) 0.7 10 ^3/uL (0-1.3); Monocytes % (auto) 11.5 % (0.0-12.0); Neutrophils # (auto) 3.7 10 ^3/uL (1.6-8.6); Neutrophils % (auto) 62.7 % (37.0-80.0); Nucleated Red Blood Cells % 0.1 %; Platelet Count (auto) 160 10^3/uL (140-450); Red Blood Cells 5.02 10^6/uL (4.5-5.90)
[2024-07-21 17:06] LABS: Chloride 100 mmol/L (98-107); Sodium 137 mmol/L (136-145)
[2024-07-21 17:07] LABS: Anion Gap 8 (5-15); Calcium 10.4 mg/dL (8.7-10.4); Carbon Dioxide 29 mmol/L (20-31)
[2024-07-21 17:12] LABS: Blood Urea Nitrogen 38 mg/dL (9-23); Glucose 125 mg/dL (74-106); Lipase 32 U/L (12-53); Potassium 3.5 mmol/L (3.5-5.1)
[2024-07-21] MEDS: HYDROcodone-ACET 5/325MG TAB PO ONE (17:56)
[2024-07-21 17:58] VITALS: BP 106/64; PULSE 96; RESP 15; TEMP 98; O2SAT 98
[2024-07-21] MEDS ORDERED: HYDR-4902 PO (18:20)
[2024-07-21] MEDS ORDERED: LIDO5DIS21 TOP (18:20)
[2024-07-21] MEDS ORDERED: DICL1GEL59 EX (18:29)
--- NOTE | 2024-07-23 07:24 | ECG ---
[facility] Test Date: 2024-07-21 Test Time: 15:10:02 Pat Name: DALE WALTERS Department: ER Room: Gender: M Construction Controller: : [id number] Requested By: VICKIE RIOS Order Number: [id number] Reading MD: Tommy Linda Measurements Intervals [place] Rate: 85 P: 0 IA: 0 QRS: -3 QRSD: 91 T: -4 QT: 349 QTc: 415 Interpretive Statements Atrial fibrillation Low voltage, precordial leads Borderline repol abnrm, inferolateral leads Baseline wander in lead(s) II Electronically Signed On 07-23-2024 14:56:43 PDT by Tommy Linda Please click the below link to view image of tracing.
== END 2024-07-21 18:23 | disposition home or self-care (01) ==
LOC: ER 14:42
DX: M54.6 Pain in thoracic spine (principal); R11.2 Nausea with vomiting, unspecified; N18.9 Chronic kidney disease, unspecified; Z86.718 Personal history of other venous thrombosis and embolism; Z79.01 Long term (current) use of anticoagulants; Z79.52 Long term (current) use of systemic steroids; Z79.899 Other long term (current) drug therapy
CPT/HCPCS: 36415; 80048; 81001; 83690; 84484; 85025; 93005

== ENCOUNTER 2024-08-09 11:26 | Inpatient (IN) | payer MEDICAID ==
[~2024-08-09] VITALS: Ht 170.2 cm; Wt 100.0 kg
[~2024-08-09 11:26] MED LIST changes: +CHOL50004 PO; +DICL1GEL59 EX; +HYDR-4902 PO; +LIDO5DIS21 TOP; +POTA-228 PO
[2024-08-09 12:56] LABS: Basophils # (auto) 0 10 ^3/uL (0-0.2); Basophils % (auto) 0.3 % (0.0-2.0); Eosinophils # (auto) 0 10 ^3/uL (0-0.8); Eosinophils % (auto) 0.3 % (0.0-7.0); Hematocrit 46.8 % (41.0-53.0); Hemoglobin 15.4 g/dL (13.5-17.5); Lymphocytes # (auto) 1.3 10 ^3/uL (0.4-5.4); Lymphocytes % (auto) 14.3 % (10.0-50.0); Mean Corpuscular Hemoglobin 28.2 pg (28.0-32.0); Mean Corpuscular Hgb Conc. 32.9 g/dL (32.0-36.0); Mean Corpuscular Volume 85.6 fL (80.0-100.0); Monocytes # (auto) 0.8 10 ^3/uL (0-1.3); Monocytes % (auto) 8.4 % (0.0-12.0); Neutrophils # (auto) 6.9 10 ^3/uL (1.6-8.6); Neutrophils % (auto) 76.7 % (37.0-80.0); Nucleated Red Blood Cells % 0.2 %; Platelet Count (auto) 188 10^3/uL (140-450); Red Blood Cells 5.47 10^6/uL (4.5-5.90); Red Cell Distribution Width 16.2 % (11.8-14.3)
--- NOTE | 2024-08-09 12:58 | ED.PDOC ---
GI ASSESSMENT HPI Comments 78 y/o obese M presents with spouse for 2x month history of intermittent back and abdominal pain, with associated nausea and vomiting. Pain starts in his back and radiates to his abdomen and vomits on occasions because of it. States on being seen and receiving an MRI here 2x weeks ago Reports on pain medication prescribed from last visit not helping. No further acute symptoms endorsed. Vitals: temperature of 97.3F, pulse of 66, respiratory rate of 18, blood pressure of 143/88, SpO2 of 99%RA. Past medical history: AFib, CHF, HLD, HTN, hypotension, gout, epilepsy, lower extremity DVT's, BPH, CKF III, chronic back pain, fluid retention Past surgical history: denies Medications: Eliquis, Flowmax, Lasix FINAL DIAGNOSES: * Flareup of gout. * Acute on chronic systolic/diastolic heart failure. * Chronic kidney disease stage III. * Obesity. * Benign prostatic hypertrophy. * Atrial fibrillation with secondary hypercoagulable state. * Seizure disorder. * Benign prostatic hypertrophy. * Orthostatic hypotension. HPI: Poor Historian. REVIEW OF SYSTEMS: CONSTITUTIONAL: Denies acute: fever, diaphoresis, chills, HEAD: Denies acute: headache, photophobia Eyes: Denies acute: Double vision, vision loss, eye pain, eye discharge. EARS: Denies acute: tinnitus, hearing loss, ear discharge, ear pain, THROAT: Denies acute: sore throat, swelling, difficulty swallowing , pain with swallowing, change in voice. NECK: Denies acute: neck pain, neck swelling, stiff neck. HEART: Denies acute : chest pain, palpitations, LUNGS: Denies acute: SOB, wheezing, cough, hemoptysis ABDOMEN: Denies acute: , diarrhea, melena , hematemesis, hematochezia SKIN: Denies acute: rash, redness, lesions, itchiness. EXTREMITIES: Denies acute: calf pain, numbness, tingling, weakness, denies pain in extremity. Neuro: Denies acute: focal neurological deficit, motor or sensory focal neurological deficit, tremors, seizure like activity, confusion, dizziness, change in mental status, loss of bowel or bladder function, cauda equina like symptoms. : Denies acute: dysuria, hematuria, flank pain, increase in urinary frequency. PSYCH: Denies acute: hallucination, suicidal ideation, homicidal ideation. PHYSICAL EXAM: General: ---[id number]-----acute distress, awake and alert. Head: normocephalic, atraumatic. Neck: supple, trachea is midline, no swelling. Throat: Normal phonation. Eyes:, no erythema, no purulent discharge, no proptosis, no icterus. Heart: regular rate, regular rhythm, no significant murmur appreciated. Lungs: no apparent respiratory distress, Able to speak in full sentences. No wheezing, no rhonchi, no crackles. No stridors Clear to auscultation bilaterally. Abdomen: Nonspecific generalized mild tender to palpation, non distended, soft, no guarding, no rebound, + bowel sounds. Morbidly obese Neuro: Awake, Alert, oriented to name, self, situation, follows commands GCS=15. Speech is normal. Skin: no petechia, no purpura, no cyanosis, non-pale, not jaundice. Lower extremities: --2/4 bilateral - Pitting edema no deformity, no focal swelling, no calf TTP. Makes eye contact. moves all four extremities. Face: no apparent facial droop. No nuchal rigidity, Kernig's sign, Brudzinski's sign, no meningeal signs. ED COURSE: DISCLAIMER: This medical document was created using an electronic medical record system with voice recognition software and computerized dictation system. Although this document has been carefully reviewed, there might still be some phonetic and typographical errors. Occasional wrong-word or "sound-alike" substitutions may have occurred due to the inherent limitations of voice recognition software. These areas are purely typographical due to imperfections of the software pro grams and do not reflect any compromise in the patient's medical care. Please read the chart carefully and recognize, using context, where these substitutions have occurred. Chief Complaint: Abdominal Pain Time Seen by MD: 12:30 Primary Care Provider: Osmin Reviewed Notes: Nurses Notes, Allergies Allergies: Coded Allergies: NO KNOWN ALLERGIES (Unverified , 02/18/24) Home Meds Active Scripts Diclofenac Sodium (Topical) (Voltaren Arthritis Pain) 1 % Gel, 1 APPLIC EX Q6HP PRN for 30 Days, #60 GRAMS 0 Refills Prov:VICKIE RIOS FRESCO ARTIST 07/21/24 Lidocaine (LIDODERM 5% TOPICAL PATCH) 1 Patch Ph, 1 PATCH TOP DAILY for 30 Days, #30 PATCH 0 Refills Prov:VICKIE RIOS FRESCO ARTIST 07/21/24 Hydrocodone-Acetaminophen (Hydrocodone Bitartrate/AC 5-325 mg) 1 Tab Tab, 1 TAB PO Q12HP PRN for 2 Days, #4 TAB 0 Refills Prov:VICKIE RIOS FRESCO ARTIST 07/21/24 Allopurinol (Allopurinol) 100 Mg Tab, 100 MG PO DAILY for 30 Days, #30 TAB 3 Refills Prov:NINA BULLARD MD 02/19/24 Prednisone (Prednisone) 20 Mg Tab, 20 MG PO QAM for 5 Days, #10 MG Prov:NINA BULLARD MD 02/19/24 Reported Medications Apixaban Base (ELIQUIS) 5 Mg Tab, 10 MG PO BID for 7 Days, TAB 10MG BID X 7 DAYS THEN 5MG PO BID FOR AT LEAST 6 MONTHS FOR DVT/PE TREATMENT 02/19/24 Metolazone (Metolazone) 10 Mg Tab, 10 MG PO QAM for 30 Days, MG 02/19/24 Furosemide (Furosemide) 40 Mg Tab, 40 MG PO DAILY for 30 Days, MG 02/19/24 Midodrine HCl (Midodrine HCl) 10 Mg Tab, 5 MG PO TIDPRN, TAB 02/19/24 Ezetimibe (Zetia) 10 Mg Tab, 1 TAB PO DAILY, #30 TAB 5 Refills 02/19/24 Tamsulosin Hcl (Tamsulosin Hcl) 0.4 Mg Cap, 0.8 MG PO QAM for 30 Days, MG 02/19/24 Finasteride (Finasteride) 5 Mg Tab, 5 MG PO DAILY for 30 Days, MG 02/19/24 Folic Acid (Folic Acid) 5 Mg Cap, 5 MG PO BID, CAP 02/19/24 Phenytoin Sodium (DILANTIN CAPSULE) 100 Mg Cp, 100 MG PO BID, CAP 02/19/24 Information Source: Patient, Relative (Child), Spouse Mode of Arrival: Wheelchair Past Medical History PAST MEDICAL HISTORY: CKF, Gout Surgical History: Denies all surgeries Family History Family History: Reviewed,noncontributory to illness, No family hx of Cancer, No family hx of DM, No family hx of Heart zunilda, No family hx of HTN, No family hx ofKidney zunilda, No family hx of Liver zunilda, No family hx of Lung zunilda, No family hx of Stroke Social History Smoker: Non-Smoker Alcohol: Denies ETOH Use Drugs: Denies Drug Use Lives In: Home Was a procedure done? Was a procedure done?: No GI differential Dx Differential Diagnosis: Other (DDX include but not limited to diverticulitis, colitis, gastroenteritis, acute abdomen, SBO, enteritis, constipation, volvulus, appendicitis, Gallbladder disease, choledocolithiasis, ascending cholangitis, pancreatitis, intraAbdominal mass/neoplasm, hepatitis, UTI, pylonephritis, kidn ey stone, aneurysm, dissection, Inflammatory bowel disease, gastroparesis, ischemic bowel.) X-Ray, Labs, Meds, VS Vital Signs Date Time Temp Pulse Resp B/P (MAP) Pulse Ox O2 Delivery O2 Flow Rate FiO2 08/09/24 18:42 97.4 66 20 150/66 (94) 97 97.4 08/09/24 12:07 97.3 66 18 143/88 (106) 99 97.3 Lab Test 08/09/24 15:55 08/09/24 13:25 08/09/24 12:38 Range/Units Troponin I High Sensitivity 14 14 13 </=54 ng/L White Blood Count 9.0 4.4-10.8 10^3/uL Red Blood Count 5.47 4.5-5.90 10^6/uL Hemoglobin 15.4 13.5-17.5 g/dL Hematocrit 46.8 41.0-53.0 % Mean Corpuscular Volume 85.6 80.0-100.0 fL Mean Corpuscular Hemoglobin 28.2 28.0-32.0 pg Mean Corpuscular Hemoglobin Concent 32.9 32.0-36.0 g/dL Red Cell Distribution Width 16.2 H 11.8-14.3 % Platelet Count 188 140-450 10^3/uL Mean Platelet Volume 8.8 6.9-10.8 fL Neutrophils (%) (Auto) 76.7 37.0-80.0 % Lymphocytes (%) (Auto) 14.3 10.0-50.0 % Monocytes (%) (Auto) 8.4 0.0-12.0 % Eosinophils (%) (Auto) 0.3 0.0-7.0 % Basophils (%) (Auto) 0.3 0.0-2.0 % Neutrophils # (Auto) 6.9 1.6-8.6 10 ^3/uL Lymphocytes # (Auto) 1.3 0.4-5.4 10 ^3/uL Monocytes # (Auto) 0.8 0-1.3 10 ^3/uL Eosinophils # (Auto) 0 0-0.8 10 ^3/uL Basophils # (Auto) 0 0-0.2 10 ^3/uL Nucleated Red Blood Cells 0.2 % Sodium Level 141 136-145 mmol/L Potassium Level 3.9 3.5-5.1 mmol/L Chloride Level 103 98-107 mmol/L Carbon Dioxide Level 28 20-31 mmol/L Anion Gap 10 5-15 Blood Urea Nitrogen 28 H 9-23 mg/dL Creatinine 1.25 0.700-1.30 mg/dL Glomerular Filtration Rate Calc 59 >90 mL/min BUN/Creatinine Ratio 22.4 H 10.0-20.0 Serum Glucose 103 74-106 mg/dL Lactic Acid Level 1.9 0.4-2.0 mmol/L Calcium Level 11.1 H 8.7-10.4 mg/dL Total Bilirubin 0.6 0.2-1.0 mg/dL Aspartate Amino Transferase (AST) 18 <34 U/L Alanine Aminotransferase (ALT) 22 7-40 U/L Alkaline Phosphatase 109 46-116 U/L B-Type Natriuretic Peptide 2043.43 0-100 pg/mL Total Protein 7.7 5.7-8.2 g/dL Albumin 4.2 3.2-4.8 g/dL Lipase 26 12-53 U/L [address] [address] Ph: [phone] DIAGNOSTIC IMAGING Diagnostic Imaging Report : [id number] Signed PATIENT: DALE WALTERSACCT: [id number] UNIT: [id number] : 1945 LOC: ER ROOM / BED: / AGE / SEX: 78 / M ADM STATUS: REG ER SERVICE 1229 ORDERING PHYSICIAN: JENISE FLORENCE DO PROCEDURE(s): ABPL - CT AB PEL WO CON-NO ORAL OR IV REASON: abd pain n/v ORDER NUMBER(s): [id number], ACCESSION NUMBER(s): [id number] EXAM: CT Abdomen and Pelvis Without Intravenous Contrast CLINICAL INDICATION: abd pain n/v TECHNIQUE: Axial computed tomography images of the abdomen and pelvis without intravenous contrast. This CT exam was performed using one or more of the following dose reduction techniques: automated exposure control, adjustment of the mA and/or kV according to patient size, and/or use of iterative reconstruction technique. CONTRAST: COMPARISON: None FINDINGS: LUNG BASES: COPD. No consolidation. MEDIASTINUM: Small esophageal hiatal hernia. ABDOMEN: LIVER: Hepatomegaly with fatty infiltration. GALLBLADDER AND BILE DUCTS: Unremarkable. No calcified stones. No ductal dilation. PANCREAS: Unremarkable. No ductal dilation. SPLEEN: Unremarkable. No splenomegaly. ADRENALS: Unremarkable. No mass. KIDNEYS AND URETERS: Right renal cysts. No obstructing stones. No hydronephrosis. STOMACH AND BOWEL: Fecal retention in the colon consistent with constipation. No obstruction. No mucosal thickening. PELVIS: APPENDIX: No findings to suggest acute appendicitis. BLADDER: Unremarkable. No stones. REPRODUCTIVE: Unremarkable as visualized. ABDOMEN and PELVIS: INTRAPERITONEAL SPACE: Unremarkable. No free air. No significant fluid collection. BONES/JOINTS: Multilevel endplate degenerative changes and disc disease of the visualized spine. Moderate anterior wedging deformity of T11 vertebral body. No dislocation. SOFT TISSUES: Anterior ventral hernia of the lower mid abdomen containing fat. Inguinal hernias, bilaterally. VASCULATURE: Scattered calcified atherosclerotic disease of aorta. No abdominal aortic aneurysm. LYMPH NODES: Unremarkable. No enlarged lymph nodes. OTHER FINDINGS: . . . . IMPRESSION: 1. Small esophageal hiatal hernia. 2. Hepatomegaly with fatty infiltration. 3. Fecal retention in the colon consistent with constipation. 4. Anterior ventral hernia of the lower mid abdomen containing fat. 5. Inguinal hernias, bilaterally. ATED BY: TRAVON ALANIS MD DICTATED DATE/TIME: 08/09/24 9622 SIGNED BY: TRAVON ALANIS MD SIGNED DATE/TIME: 08/09/24 1306 CC: Time of 1ST Reevaluation: 13:00 Reevaluation 1ST: Unchanged Patient Education/Counseling: Treatment, Other (need for admission ) Family Education/Counseling: Treatment, Other (need for admission ) Comments Patient presented with the above HPI.--abdominal pain/back pain/nausea and vomiting----workup was initiated. patient was found with the above mentioned diagnosis. the following medications were ordered: please refer to order lists of meds and tests obtained by myself Dr. Florence. Patient ED course and VS have been stabilized. Patient has been reassessed in the ED and remained in a stable condition. Pertinent incidental findings were discussed with the patient and/or family. Patient/family voices understanding and is agreeable with plan. Patient has been observed in the ED adequate length of time to insure improvement/stability. Escalation of care considered: Consideration of escalation to observation or admission Patient had these symptoms in the past. Patient was ADMITTED to the medicine team for further evaluation and treatment of their presentation. All the reports of any imaging studies that were ordered by myself were reviewed by myself. Departure 1 Departure Time of Disposition: 15:09 Impression: Primary Impression: Chronic back pain Additional Impressions: Abdominal pain Constipation CHF exacerbation Hiatal hernia Disposition: ADMITTED INPATIENT Admit to: Tele Condition: Guarded Discharged With: Self Critical Care Note Critical Care Time?: Yes (45 min-critical care time only) I personally scribed for JENISE FLORENCE DO ([email or web address]) on 08/09/24 at 12:58. Electronically submitted by Dick Winters ([email or web address]). I personally scribed for JENISE FLORENCE DO ([email or web address]) on 08/09/24 at 14:29. Electronically submitted by Dick Winters ([email or web address]). JENISE FLORENCE DO Aug 09, 2024 12:58
--- NOTE | 2024-08-09 13:10 | DVH ---
EXAM: CT Abdomen and Pelvis Without Intravenous Contrast CLINICAL INDICATION: abd pain n/v TECHNIQUE: Axial computed tomography images of the abdomen and pelvis without intravenous contrast. This CT exam was performed using one or more of the following dose reduction techniques: automated exposure control, adjustment of the mA and/or kV according to patient size, and/or use of iterative r econstruction technique. CONTRAST: COMPARISON: None FINDINGS: LUNG BASES: COPD. No consolidation. MEDIASTINUM: Small esophageal hiatal hernia. ABDOMEN: LIVER: Hepatomegaly with fatty infiltration. GALLBLADDER AND BILE DUCTS: Unremarkable. No calcified stones. No ductal dilation. PANCREAS: Unremarkable. No ductal dilation. SPLEEN: Unremarkable. No splenomegaly. ADRENALS: Unremarkable. No mass. KIDNEYS AND URETERS: Right renal cysts. No obstructing stones. No hydronephrosis. STOMACH AND BOWEL: Fecal retention in the colon consistent with constipation. No obstruction. No mucosal thickening. PELVIS: APPENDIX: No findings to suggest acute appendicitis. BLADDER: Unremarkable. No stones. REPRODUCTIVE: Unremarkable as visualized. ABDOMEN and PELVIS: INTRAPERITONEAL SPACE: Unremarkable. No free air. No significant fluid collection. BONES/JOINTS: Multilevel endplate degenerative changes and disc disease of the visualized spine. Mo derate anterior wedging deformity of T11 vertebral body. No dislocation. SOFT TISSUES: Anterior ventral hernia of the lower mid abdomen containing fat. Inguinal hernias, b ilaterally. VASCULATURE: Scattered calcified atherosclerotic disease of aorta. No abdominal aortic aneurysm. LYMPH NODES: Unremarkable. No enlarged lymph nodes. OTHER FINDINGS: . . . . IMPRESSION: 1. Small esophageal hiatal hernia. 2. Hepatomegaly with fatty infiltration. 3. Fecal retention in the colon consistent with constipation. 4. Anterior ventral hernia of the lower mid abdomen containing fat. 5. Inguinal hernias, bilaterally.
[2024-08-09 13:11] LABS: Alanine Aminotransferase 22 U/L (7-40); Albumin 4.2 g/dL (3.2-4.8); Alkaline Phosphatase 109 U/L (46-116); Anion Gap 10 (5-15); Aspartate Aminotransferase 18 U/L (<34); BUN/Creatinine Ratio 22.4 (10.0-20.0); Carbon Dioxide 28 mmol/L (20-31); Chloride 103 mmol/L (98-107); Glucose 103 mg/dL (74-106); Lipase 26 U/L (12-53); Potassium 3.9 mmol/L (3.5-5.1); Sodium 141 mmol/L (136-145); Total Protein 7.7 g/dL (5.7-8.2)
[2024-08-09 13:12] LABS: Bilirubin, Total 0.6 mg/dL (0.2-1.0)
[2024-08-09 13:14] LABS: Blood Urea Nitrogen 28 mg/dL (9-23); Calcium 11.1 mg/dL (8.7-10.4)
--- NOTE | 2024-08-09 16:03 | DVH ---
XY CHEST PORTABLE, HISTORY: chf COMPARISON: XY CHEST PORTABLE on DOS: 02/19/24 XY CHEST PORTABLE on DOS: 02/19/24 TECHNICAL DATA: 1 view of the chest was obtained. FINDINGS: Lines and tubes: None Cardiomediastinal silhouette: Enlarged Pulmonary vasculature: Prominent Lung expansion: normal Lung airspace: normal Lung interstitium: normal Pleura: normal Pneumothorax: no Bones: Unremarkable Other: no IMPRESSION: Cardiomegaly with pulmonary congestion.
[2024-08-09] MEDS: ONDANSETRON HCL 4 MG/2 ML VIAL IV ONE (20:54)
[2024-08-09] MEDS: FUROSEMIDE 40 MG/4 ML VIAL IV ONE (20:55)
[2024-08-09] MEDS ORDERED: ACETAMINOPHEN 325 MG TAB PO PRN (22:15)
--- NOTE | 2024-08-09 23:29 | DVHHP2 ---
History of Present Illness Reason for Visit: Acute exacerbation of congestive heart failure History of Present Illness The patient is a 78-year-old male morbidly obese with multiple past medical hist ory including AFib, epilepsy, DVTs, and hypertension who presented to [place] [facility] ED with complaint of intermittent back and abdominal pain. Patient reports symptoms progressively get worse with associated nausea, vomiting, back pain radiating to his abdomen, rating 6/10 numeric scale, shortness of breaths, getting worse that prompted this visit. Patient states on being seen and receiving an MRI here 2x weeks ago. Patient was seen and evaluated in the ED, laboratory data shows WBC 9.0, platelets 188, sodium 141, potassium 3.9, BUN 28, creatinine 1.25, glucose 103, calcium 11.1, lipase 21, lactic acid 1.9, BNP 2043.43, troponin 14, blood pressure 136/71, heart rate 64, temperature 97.5 F, O2 saturation 97% on oxygen. Abdomen/pelvis CT revealing sm all esophageal hernia, fecal retention in the colon consistent with constipation, inguinal hernias bilaterally. Chest x-ray revealing cardiomegaly with pulmonary vascular congestion. Patient was started on IV Lasix, please see medication orders section in the computer. Past Medical History AFib, CHF, HLD, HTN, hypotension, gout, epilepsy, lower extremity DVT's, BPH, CKF III, Chronic back pain. Past Surgical History Denies all surgeries Family History Reviewed, noncontributory to the management of this case. Past Social History The patient lives at home, denies smoking, alcohol or illicit drugs abuse. Review of Systems Constitutional: Yes: Weakness; No: Fever, Chills, Sweats, Malaise, Other Eyes: No: Pain, Vision change, Conjunctivae inflammation, Eyelid inflammation, Other, Redness ENT: No: Ear pain, Ear discharge, Nose pain, Nose discharge, Nose congestion, Mouth pain, Mouth swelling, Throat pain, Throat swelling, Other Respiratory: Shortness of breath; No: Cough, Dry, SOB with excertion, Wheezing, Hemoptysis, Pleuritic Pain, Sputum, Wheezing, Other Cardiovascular: No: Chest Pain, Palpitations, Orthopnea, Paroxysmal Noc. Dyspnea, Edema, Lt Headedness, Other Gastrointestinal: Nausea, Vomiting, Abdominal Pain; No: Diarrhea, Constipation, Melena, Hematochezia, Other Genitourinary: No Dysuria, No Frequency, No Incontinence, No Hematuria, No Retention, No Other Musculoskeletal: back pain; No: other, neck pain, shoulder pain, arm pain, hand pain, leg pain, foot pain Skin: No: Rash, Lesions, Jaundice, Bruising, Other Neurological: No: Weakness, Numbness, Incoordination, Change in speech, Confusion, Seizures, Other Allergies: Coded Allergies: NO KNOWN ALLERGIES (Unverified , 02/18/24) Medications Current Medications Medications Dose Ordered Sig/Charlette Route Start Time Stop Time Status Last Admin Dose Admin Furosemide 40 mg DAILY IV 08/10/24 10:00 Tamsulosin HCl 0.4 mg QPM PO 08/10/24 18:00 Folic Acid 1 mg DAILY PO 08/10/24 10:00 Phenytoin Sodium 100 mg Q12HR PO 08/10/24 10:00 Apixaban 5 mg BID PO 08/10/24 10:00 Sodium Chloride 10 ml Q8HR IV 08/10/24 06:00 Acetaminophen/ Hydrocodone Bitart 1 tab Q4HP PRN PO 08/09/24 22:15 Ondansetron HCl 4 mg Q4HP PRN IV 08/09/24 22:15 Docusate Sodium 100 mg BIDPRN PRN PO 08/09/24 22:15 Acetaminophen 650 mg Q6HP PRN PO 08/09/24 22:15 Exam Vital Signs Vital Signs Date Time Temp Pulse Resp B/P (MAP) Pulse Ox O2 Delivery O2 Flow Rate FiO2 08/09/24 20:55 97.5 64 18 136/71 (92) 97 97.5 General Appearance: Alert, Oriented X3, Cooperative, No acute distress HEENT: Atraumatic, PERRLA, EOMI, Mucous membr. moist/pink Respiratory: Normal air movement Cardiovascular: Regular rate, Normal S1, Normal S2, No murmurs Abdominal: Normal bowel sounds, Soft, No hepatospenomegaly, No masses, Other (Reports tenderness) Extremities: No clubbing, No cyanosis, No edema, Normal pulses, No tenderness/swelling Skin: No rashes, No breakdown, No significant lesion Neuro: Normal speech, Normal tone, Sensation intact, Cranial nerves 3-12 NL, Reflexes 2+, Other (Generalized weakness) Psych/Mental Status: Mental status NL, Mood NL Labs/Xrays Labs Test 08/09/24 15:55 08/09/24 12:38 Range/Units Troponin I High Sensitivity 14 </=54 ng/L White Blood Count 9.0 4.4-10.8 10^3/uL Red Blood Count 5.47 4.5-5.90 10^6/uL Hemoglobin 15.4 13.5-17.5 g/dL Hematocrit 46.8 41.0-53.0 % Mean Corpuscular Volume 85.6 80.0-100.0 fL Mean Corpuscular Hemoglobin 28.2 28.0-32.0 pg Mean Corpuscular Hemoglobin Concent 32.9 32.0-36.0 g/dL Red Cell Distribution Width 16.2 H 11.8-14.3 % Platelet Count 188 140-450 10^3/uL Mean Platelet Volume 8.8 6.9-10.8 fL Neutrophils (%) (Auto) 76.7 37.0-80.0 % Lymphocytes (%) (Auto) 14.3 10.0-50.0 % Monocytes (%) (Auto) 8.4 0.0-12.0 % Eosinophils (%) (Auto) 0.3 0.0-7.0 % Basophils (%) (Auto) 0.3 0.0-2.0 % Neutrophils # (Auto) 6.9 1.6-8.6 10 ^3/uL Lymphocytes # (Auto) 1.3 0.4-5.4 10 ^3/uL Monocytes # (Auto) 0.8 0-1.3 10 ^3/uL Eosinophils # (Auto) 0 0-0.8 10 ^3/uL Basophils # (Auto) 0 0-0.2 10 ^3/uL Nucleated Red Blood Cells 0.2 % Sodium Level 141 136-145 mmol/L Potassium Level 3.9 3.5-5.1 mmol/L Chloride Level 103 98-107 mmol/L Carbon Dioxide Level 28 20-31 mmol/L Anion Gap 10 5-15 Blood Urea Nitrogen 28 H 9-23 mg/dL Creatinine 1.25 0.700-1.30 mg/dL Glomerular Filtration Rate Calc 59 >90 mL/min BUN/Creatinine Ratio 22.4 H 10.0-20.0 Serum Glucose 103 74-106 mg/dL Lactic Acid Level 1.9 0.4-2.0 mmol/L Calcium Level 11.1 H 8.7-10.4 mg/dL Total Bilirubin 0.6 0.2-1.0 mg/dL Aspartate Amino Transferase (AST) 18 <34 U/L Alanine Aminotransferase (ALT) 22 7-40 U/L Alkaline Phosphatase 109 46-116 U/L B-Type Natriuretic Peptide 2043.43 0-100 pg/mL Total Protein 7.7 5.7-8.2 g/dL Albumin 4.2 3.2-4.8 g/dL Lipase 26 12-53 U/L PATIENT: DALE WALTERS SULEIMANACCT: [id number] UNIT: [id number] : 1945 LOC: ER ROOM / BED: / AGE / SEX: 78 / M ADM STATUS: REG ER SERVICE 1229 ORDERING PHYSICIAN: JENISE FLORENCE DO PROCEDURE(s): ABPL - CT AB PEL WO CON-NO ORAL OR IV REASON: abd pain n/v ORDER NUMBER(s): [id number], ACCESSION NUMBER(s): [id number] EXAM: CT Abdomen and Pelvis Without Intravenous Contrast CLINICAL INDICATION: abd pain n/v TECHNIQUE: Axial computed tomography images of the abdomen and pelvis without intravenous contrast. This CT exam was performed using one or more of the following dose reduction techniques: automated exposure control, adjustment of the mA and/or kV according to patient size, and/or use of iterative reconstruction technique. CONTRAST: COMPARISON: None FINDINGS: LUNG BASES: COPD. No consolidation. MEDIASTINUM: Small esophageal hiatal hernia. ABDOMEN: LIVER: Hepatomegaly with fatty infiltration. GALLBLADDER AND BILE DUCTS: Unremarkable. No calcified stones. No ductal dilation. PANCREAS: Unremarkable. No ductal dilation. SPLEEN: Unremarkable. No splenomegaly. ADRENALS: Unremarkable. No mass. KIDNEYS AND URETERS: Right renal cysts. No obstructing stones. No hydronephrosis. STOMACH AND BOWEL: Fecal retention in the colon consistent with constipation. No obstruction. No mucosal thickening. PELVIS: APPENDIX: No findings to suggest acute appendicitis. BLADDER: Unremarkable. No stones. REPRODUCTIVE: Unremarkable as visualized. ABDOMEN and PELVIS: INTRAPERITONEAL SPACE: Unremarkable. No free air. No significant fluid collection. BONES/JOINTS: Multilevel endplate degenerative changes and disc disease of the visualized spine. Moderate anterior wedging deformity of T11 vertebral body. No dislocation. SOFT TISSUES: Anterior ventral hernia of the lower mid abdomen containing fat. Inguinal hernias, bilaterally. VASCULATURE: Scattered calcified atherosclerotic disease of aorta. No abdominal aortic aneurysm. LYMPH NODES: Unremarkable. No enlarged lymph nodes. OTHER FINDINGS: IMPRESSION: 1. Small esophageal hiatal hernia. 2. Fecal retention in the colon consistent with constipation. 4. Anterior ventral hernia of the lower mid abdomen containing fat. 5. Inguinal hernias, bilaterally. ORDERING PHYSICIAN: JENISE FLORENCE DO PROCEDURE(s): CXRP - CHEST PORTABLE REASON: chf ORDER NUMBER(s): [id number], ACCESSION NUMBER(s): [id number] XY CHEST PORTABLE, HISTORY: chf COMPARISON: XY CHEST PORTABLE on DOS: 02/19/24 XY CHEST PORTABLE on DOS: 02/19/24 TECHNICAL DATA: 1 view of the chest was obtained. FINDINGS: Lines and tubes: None Cardiomediastinal silhouette: Enlarged Pulmonary vasculature: Prominent Lung expansion: normal Lung airspace: normal Lung interstitium: normal Pleura: normal Pneumothorax: no Bones: Unremarkable Other: no IMPRESSION: Cardiomegaly with pulmonary congestion. Assessment/Plan Assessment/Plan Chronic back pain Abdominal pain Constipation Hypercalcemia Hiatal hernia Acute exacerbation of congestive heart failure Plan 1. Admit to telemetry unit 2. Breathing treatment 3. Pain control management 4. Management of fluids and electrolytes 5. Consultation for hospitalist 6. Diagnostic tests chest x-ray 7. DVT prophylaxis-on Eliquis 8. Repeat labs CBC, CMP in a.m. 9. Continue with current medical management 10. Treatment plan discussed with patient and RN. Patient verbalized understanding. Plan discussed with: Patient, Other (RN) My Orders Orders - ROBERT LEMA DNP Procedure Category Date Status Time Furosemide Injection PHA 08/10/24 In Process (Lasix Injection) 10:00 Tamsulosin PHA 08/10/24 In Process Hydrochloride (Flomax) 18:00 Folic Acid Tablet PHA 08/10/24 In Process 10:00 Phenytoin Capsule PHA 08/10/24 In Process (Dilantin Capsule) 10:00 Apixaban (Eliquis) PHA 08/10/24 In Process 10:00 Allergies ROBE 08/09/24 In Process 22:03 Code Status CODE 08/09/24 Transmitted 22:03 Sodium Chloride Lock PHA 08/10/24 In Process (Saline Lock Ns) 06:00 Oxygen Per Hour RT 6/21/25 Transmitted 22:03 Hydrocodone-Acet PHA 08/09/24 In Process 5/325mg Tab ([place] 22:15 Ondansetron Hcl PHA 08/09/24 In Process (Zofran) 22:15 Docusate Sodium PHA 08/09/24 In Process Capsule (Colace 22:15 Complete Blood Count LAB 08/10/24 Verified 04:00 Comprehensive LAB 08/10/24 Verified Metabolic Panel 04:00 Cardiac DIET 08/10/24 Transmitted Diet-2gna,Lofat,Lochol Breakfast Condition: Serious ROBE 08/09/24 In Process 22:03 Acetaminophen Tablet PHA 08/09/24 In Process (Tylenol Tablet) 22:15 Bedrest With Bathroom ROBE 08/09/24 In Process Privileg 22:03 Sequential ROBE 08/09/24 In Process Compression Device Problem List: (1) Chronic back pain (2) Abdominal pain (3) Constipation (4) Hypercalcemia (5) Hiatal hernia (6) Acute exacerbation of congestive heart failure Date of Service: Aug 09, 2024 Billing Provider: ROBERT LEMA DNP Common Visit Codes: [id number] INP/OBS CARE (HIGH) ROBERT LEMA DNP Aug 09, 2024 23:29
[2024-08-09] MEDS ORDERED: NITROGLYCERIN 0.4 MG SL TAB SL PRN (23:30)
[2024-08-10] VITALS (8 sets, daily range): BP systolic 82–129; BP diastolic 40–75; PULSE 50–68; RESP 17–20; TEMP 96.6–98.1; O2SAT 91–96
[2024-08-10] MEDS: LACTULOSE 20Gm/30ML SOLN PO ONE (00:30)
[2024-08-10] MEDS: HYDROcodone-ACET 5/325MG TAB PO PRN (00:31)
[2024-08-10 01:48] LABS: Urine Bacteria None Seen /hpf (None Seen)
[2024-08-10 01:57] LABS: Urine Blood TRACE /uL (Negative); Urine Clarity Clear (Clear); Urine Color Light-Yellow (Yellow); Urine Hyaline Cast MANY /lpf (0 - 2); Urine Mucus FEW (None Seen); Urine Protein, UAD Negative (Negative); Urine Squamous Epithelial Cell FEW /hpf (<5); Urine Urobilinogen Normal (Negative); Urine WBC 1 /HPF (0-3); Urine pH 5.5 (5.0-9.0)
[2024-08-10 04:51] LABS: Basophils # (auto) 0 10 ^3/uL (0-0.2); Basophils % (auto) 0.6 % (0.0-2.0); Eosinophils # (auto) 0.1 10 ^3/uL (0-0.8); Eosinophils % (auto) 0.9 % (0.0-7.0); Hematocrit 43.3 % (41.0-53.0); Hemoglobin 14.5 g/dL (13.5-17.5); Lymphocytes # (auto) 1.4 10 ^3/uL (0.4-5.4); Mean Corpuscular Hemoglobin 28.7 pg (28.0-32.0); Mean Corpuscular Hgb Conc. 33.5 g/dL (32.0-36.0); Mean Corpuscular Volume 85.6 fL (80.0-100.0); Monocytes # (auto) 0.6 10 ^3/uL (0-1.3); Monocytes % (auto) 10.2 % (0.0-12.0); Neutrophils # (auto) 4.1 10 ^3/uL (1.6-8.6); Neutrophils % (auto) 66.3 % (37.0-80.0); Platelet Count (auto) 169 10^3/uL (140-450); Red Blood Cells 5.06 10^6/uL (4.5-5.90); Red Cell Distribution Width 16.2 % (11.8-14.3); White Blood Cell 6.2 10^3/uL (4.4-10.8)
[2024-08-10 05:05] LABS: Alanine Aminotransferase 18 U/L (7-40); Albumin 3.7 g/dL (3.2-4.8); Alkaline Phosphatase 101 U/L (46-116); Anion Gap 9 (5-15); Aspartate Aminotransferase 19 U/L (<34); BUN/Creatinine Ratio 19.9 (10.0-20.0); Bilirubin, Total 0.6 mg/dL (0.2-1.0); Carbon Dioxide 27 mmol/L (20-31); Chloride 105 mmol/L (98-107); Glucose 86 mg/dL (74-106); Sodium 141 mmol/L (136-145); Total Protein 6.9 g/dL (5.7-8.2)
[2024-08-10 05:11] LABS: Blood Urea Nitrogen 27 mg/dL (9-23); Calcium 11.1 mg/dL (8.7-10.4)
[2024-08-10] MEDS: SODIUM CHLOR 0.9% PF (SALINE LOCK) 10ML VIAL/SYR IV SCH (06:03)
[2024-08-10] MEDS: FUROSEMIDE 40 MG/4 ML VIAL IV SCH (10:00)
[2024-08-10] MEDS: APIXABAN 5 MG TAB PO SCH (10:02)
[2024-08-10] MEDS: PHENYTOIN SODIUM 100 MG CAP PO SCH (10:03)
[2024-08-10] MEDS: FOLIC ACID 1 MG TAB PO SCH (10:03)
[2024-08-10] MEDS: TAMSULOSIN HYDROCHLORIDE 0.4 MG CAP PO SCH (17:49)
[2024-08-10] MEDS: MIDODRINE HCL 10 MG TAB PO SCH (21:30)
[2024-08-11] VITALS (8 sets, daily range): BP systolic 103–130; BP diastolic 51–58; PULSE 51–65; RESP 15–17; TEMP 97.4–98.4; O2SAT 92–100
[2024-08-11] MEDS: ALLOPURINOL 100 MG TAB PO SCH (09:30)
[2024-08-11] MEDS: FINASTERIDE 5 MG TAB PO SCH (09:35)
--- NOTE | 2024-08-11 12:10 | DVHPN2 ---
Subjective The patient is seen and examined at bedside. The patient complained of pain in his abdomen. Reviewed: Care Plan, H&P, Labs, Medications, Previous Orders, Radiology Changes from previous H/P or p: No Changes Eyes: No Pain, No Vision change, No Conjunctivae inflammation, No Eyelid inflammation, No Other, No Redness ENT: No Ear pain, No Ear discharge, No Nose pain, No Nose discharge, No Nose congestion, No Mouth pain, No Mouth swelling, No Throat pain, No Throat swelling, No Other Cardiovascular: No Chest Pain, No Palpitations, No Orthopnea, No Paroxysmal Noc. Dyspnea, No Edema, No Lt Headedness, No Other Respiratory: No Cough, No Dry; Shortness of breath; No SOB with excertion, No Wheezing, No Hemoptysis, No Pleuritic Pain, No Sputum, No Other Gastrointestinal: Nausea, Vomiting, Abdominal Pain; No Diarrhea, No Constipation, No Melena, No Hematochezia, No Other Genitourinary: No Dysuria, No Frequency, No Incontinence, No Hematuria, No Retention, No Other Musculoskeletal: No other, No neck pain, No shoulder pain, No arm pain; back pain; No hand pain, No leg pain, No foot pain Skin: No Rash, No Lesions, No Jaundice, No Bruising, No Other Objective Vitals Vital Signs Date Time Temp Pulse Resp B/P (MAP) Pulse Ox O2 Delivery O2 Flow Rate FiO2 08/11/24 09:37 130/58 08/11/24 09:00 97.5 51 15 100 97.5 08/11/24 08:05 Room Air* 2 N/A Nasal Cannula* Intake/Output Intake and Output 08/11/24 07:00 Intake Total 1615 ml Balance 1615 ml Intake Oral 1615 ml # Voids 7 # Bowel Movements 1 General Appearance: Alert, No acute distress HEENT: Atraumatic, PERRLA, EOMI, Mucous membr. moist/pink Neck: Supple Lungs: Clear to auscultation, Normal air movement Cardiovascular: Regular rate, Normal S1, Normal S2, No murmurs, Gallops, Rubs Abdomen: Normal bowel sounds, Soft, Other (Tenderness all four quadrants) Neuro: Cranial nerves 3-12 NL Psych/Mental Status: Mental status NL Medications Current Medications Medications Dose Ordered Sig/Charlette Route Start Time Stop Time Status Last Admin Dose Admin Furosemide 40 mg DAILY IV 08/10/24 10:00 08/11/24 09:37 40 MG Tamsulosin HCl 0.4 mg QPM PO 08/10/24 18:00 08/10/24 17:49 0.4 MG Folic Acid 1 mg DAILY PO 08/10/24 10:00 08/11/24 09:29 1 MG Phenytoin Sodium 100 mg Q12HR PO 08/10/24 10:00 08/11/24 09:36 100 MG Apixaban 5 mg BID PO 08/10/24 10:00 08/11/24 09:30 5 MG Sodium Chloride 10 ml Q8HR IV 08/10/24 06:00 08/11/24 06:49 10 ML Acetaminophen/ Hydrocodone Bitart 1 tab Q4HP PRN PO 08/09/24 22:15 08/11/24 09:48 1 TAB Ondansetron HCl 4 mg Q4HP PRN IV 08/09/24 22:15 Docusate Sodium 100 mg BIDPRN PRN PO 08/09/24 22:15 Acetaminophen 650 mg Q6HP PRN PO 08/09/24 22:15 Nitroglycerin 0.4 mg Q5MINP PRN SL 08/09/24 23:30 Morphine Sulfate 2 mg Q30M PRN IV 08/09/24 23:30 Allopurinol 100 mg DAILY PO 08/11/24 10:00 08/11/24 09:30 100 MG Finasteride 5 mg DAILY PO 08/11/24 10:00 08/11/24 09:35 5 MG Midodrine 10 mg TID PO 08/10/24 22:00 08/11/24 06:50 10 MG Laboratory Results Laboratory Tests 08/10/24 04:21 Urinalysis Test 08/10/24 01:25 Urine Color Light-yellow (Yellow) Urine Clarity Clear (Clear) Urine pH 5.5 (5.0-9.0) Urine Specific [place] 1.010 (1.001-1.035) Urine Protein Negative (Negative) Urine Ketones Negative (Negative) Urine Blood Trace /uL (Negative) H Urine Nitrite Negative (Negative) Urine Bilirubin Negative (Negative) Urine Urobilinogen Normal mg/dL (Negative) Urine Leukocyte Esterase Negative /uL (Negative) Urine RBC 4 /hpf (0 - 3) Urine Microscopic WBC 1 /HPF (0-3) Urine Squamous Epithelial Cells Few /hpf (<5) Urine Bacteria None seen /hpf (None Seen) Urine Hyaline Casts Many /lpf (0 - 2) Urine Mucus Few (None Seen) Urine Glucose Normal mg/dL (Normal) Labs and/or images reviewed: Labs reviewed by me Assessment/Plan Assessment/Plan Chronic back pain Abdominal pain Constipation Hypercalcemia Hiatal hernia Acute exacerbation of congestive heart failure Continuing current management Continuing with Lasix. Colace p.r.n. for constipation Discussed with son and the patient at bedside for plan of care This medical document was created using an electronic medical record system with [employer] dictation system. Although this document has been carefully reviewed, there may still be some phonetic and typographical errors. These areas are purely typographical due to imperfections of the software programs, and do not reflect any compromise in the patient's medical care. Plan discussed with: Patient, Son My Orders Orders - KING INFANTE MD Procedure Category Date Status Time Allopurinol Tablet PHA 08/11/24 In Process (Zyloprim Tablet) 10:00 Finasteride Tablet PHA 08/11/24 In Process (Proscar Tablet) 10:00 Midodrine Tablet PHA 08/10/24 In Process (Proamatine Tablet) 22:00 Date of Service: Aug 10, 2024 Billing Provider: KING INFANTE MD Common Visit Codes: [id number] INP/OBS CARE(HIGH) KING INFANTE MD Aug 11, 2024 12:10
--- NOTE | 2024-08-11 12:14 | DVHPN2 ---
Subjective The patient is seen and examined at bedside. The patient complained of pain in his abdomen and back. Son at bedside state that he supposed to have MRI of cervical, thoracic and lumbar done because of his severe pain and increase weakness. He was hospitalized so they miss the appointment.. Reviewed: Care Plan, H&P, Labs, Medications, Previous Orders, Radiology Changes from previous H/P or p: No Changes Eyes: No Pain, No Vision change, No Conjunctivae inflammation, No Eyelid inflammation, No Other, No Redness ENT: No Ear pain, No Ear discharge, No Nose pain, No Nose discharge, No Nose congestion, No Mouth pain, No Mouth swelling, No Throat pain, No Throat swelling, No Other Cardiovascular: No Chest Pain, No Palpitations, No Orthopnea, No Paroxysmal Noc. Dyspnea, No Edema, No Lt Headedness, No Other Respiratory: No Cough, No Dry; Shortness of breath; No SOB with excertion, No Wheezing, No Hemoptysis, No Pleuritic Pain, No Sputum, No Other Gastrointestinal: Nausea, Vomiting, Abdominal Pain; No Diarrhea, No Constipation, No Melena, No Hematochezia, No Other Genitourinary: No Dysuria, No Frequency, No Incontinence, No Hematuria, No Retention, No Other Musculoskeletal: No other, No neck pain, No shoulder pain, No arm pain; back pain; No hand pain, No leg pain, No foot pain Skin: No Rash, No Lesions, No Jaundice, No Bruising, No Other Objective Vitals Vital Signs Date Time Temp Pulse Resp B/P (MAP) Pulse Ox O2 Delivery O2 Flow Rate FiO2 08/11/24 09:37 130/58 08/11/24 09:00 97.5 51 15 100 97.5 08/11/24 08:05 Room Air* 2 N/A Nasal Cannula* Intake/Output Intake and Output 08/11/24 07:00 Intake Total 1615 ml Balance 1615 ml Intake Oral 1615 ml # Voids 7 # Bowel Movements 1 General Appearance: Alert, No acute distress HEENT: Atraumatic, PERRLA, EOMI, Mucous membr. moist/pink Neck: Supple Lungs: Clear to auscultation, Normal air movement Cardiovascular: Regular rate, Normal S1, Normal S2, No murmurs, Gallops, Rubs Abdomen: Normal bowel sounds, Soft, Other (Tenderness all four quadrants) Neuro: Cranial nerves 3-12 NL Psych/Mental Status: Mental status NL Medications Current Medications Medications Dose Ordered Sig/Charlette Route Start Time Stop Time Status Last Admin Dose Admin Furosemide 40 mg DAILY IV 08/10/24 10:00 08/11/24 09:37 40 MG Tamsulosin HCl 0.4 mg QPM PO 08/10/24 18:00 08/10/24 17:49 0.4 MG Folic Acid 1 mg DAILY PO 08/10/24 10:00 08/11/24 09:29 1 MG Phenytoin Sodium 100 mg Q12HR PO 08/10/24 10:00 08/11/24 09:36 100 MG Apixaban 5 mg BID PO 08/10/24 10:00 08/11/24 09:30 5 MG Sodium Chloride 10 ml Q8HR IV 08/10/24 06:00 08/11/24 06:49 10 ML Acetaminophen/ Hydrocodone Bitart 1 tab Q4HP PRN PO 08/09/24 22:15 08/11/24 09:48 1 TAB Ondansetron HCl 4 mg Q4HP PRN IV 08/09/24 22:15 Docusate Sodium 100 mg BIDPRN PRN PO 08/09/24 22:15 Acetaminophen 650 mg Q6HP PRN PO 08/09/24 22:15 Nitroglycerin 0.4 mg Q5MINP PRN SL 08/09/24 23:30 Morphine Sulfate 2 mg Q30M PRN IV 08/09/24 23:30 Allopurinol 100 mg DAILY PO 08/11/24 10:00 08/11/24 09:30 100 MG Finasteride 5 mg DAILY PO 08/11/24 10:00 08/11/24 09:35 5 MG Midodrine 10 mg TID PO 08/10/24 22:00 08/11/24 06:50 10 MG Lactulose 30 ml Q6HR PO 08/11/24 18:00 UNV Laboratory Results Laboratory Tests 08/10/24 04:21 Urinalysis Test 08/10/24 01:25 Urine Color Light-yellow (Yellow) Urine Clarity Clear (Clear) Urine pH 5.5 (5.0-9.0) Urine Specific [place] 1.010 (1.001-1.035) Urine Protein Negative (Negative) Urine Ketones Negative (Negative) Urine Blood Trace /uL (Negative) H Urine Nitrite Negative (Negative) Urine Bilirubin Negative (Negative) Urine Urobilinogen Normal mg/dL (Negative) Urine Leukocyte Esterase Negative /uL (Negative) Urine RBC 4 /hpf (0 - 3) Urine Microscopic WBC 1 /HPF (0-3) Urine Squamous Epithelial Cells Few /hpf (<5) Urine Bacteria None seen /hpf (None Seen) Urine Hyaline Casts Many /lpf (0 - 2) Urine Mucus Few (None Seen) Urine Glucose Normal mg/dL (Normal) Labs and/or images reviewed: Labs reviewed by me Assessment/Plan Assessment/Plan Chronic back pain Abdominal pain Constipation Hypercalcemia Hiatal hernia Acute exacerbation of congestive heart failure Continuing current management Continuing with Lasix. Colace p.r.n. for constipation MRI cervical, thoracic and lumbar rule out stenosis. Discussed with son and the patient at bedside for plan of care This medical document was created using an electronic medical record system with [employer] computerized dictation system. Although this document has been carefully reviewed, there may still be some phonetic and typographical errors. These areas are purely typographical due to imperfections of the software programs, and do not reflect any compromise in the patient's medical care. Plan discussed with: Patient, Son My Orders Orders - KING INFANTE MD Procedure Category Date Status Time Allopurinol Tablet PHA 08/11/24 In Process (Zyloprim Tablet) 10:00 Finasteride Tablet PHA 08/11/24 In Process (Proscar Tablet) 10:00 Midodrine Tablet PHA 08/10/24 In Process (Proamatine Tablet) 22:00 Lactulose Oral PHA 08/11/24 Logged 18:00 Echo 2d Mode Cardiac US 08/11/24 Verified DOP 12:12 Date of Service: Aug 11, 2024 Billing Provider: KING INFANTE MD Common Visit Codes: [id number] INP/OBS CARE(HIGH) KING INFANTE MD Aug 11, 2024 12:14
--- NOTE | 2024-08-11 16:01 | DVH ---
PROCEDURE: MRI THORACIC SPINE WITHOUT Indication: BACK PAIN COMPARISON: None TECHNIQUE: Multiplanar multisequence images of the the thoracic spine are obtained. FINDINGS: For the purpose of this examination, there are 5 lumbar vertebral body types counting from the lumbos acral junction. Numbering of the thoracic spine is done counting from the lumbosacral junction Thoracic dextrocurvature. There is an acute T7 vertebral body fracture which extends through the inferior aspect of the vertebr al body, anterior and posterior T7 vertebral body cortex. There is associated marrow edema, T1 hypoi ntense signal. 2 mm retropulsion of the T7 vertebral body. Approximately 20% of the T7 vertebral body height. There is fracture of the T8 vertebral body which involves the inferior endplate, anterior inferior co rtex without significant loss of height. No significant retropulsion. Associated marrow edema within the T7 and T8 vertebral bodies significantly more pronounced at T7. There is an old T11 wedge-shaped compression deformity with approximately 80% loss of the vertebral b pancho height anteriorly and 3 mm retropulsion. The remaining thoracic heights are maintained. There is moderate thoracic multilevel disc space narr owing. The thoracic cord is normal in morphology and signal. There is no high-grade thoracic spinal canal s tenosis. Aortic tortuosity. 1.5 cm left renal cyst. IMPRESSION: Acute fractures of the T7 and T8 vertebral bodies as described above. This is significantly more pron ounced at T7. Chronic T11 wedge-shaped compression fracture deformity. Moderate thoracic degenerative disc disease.
--- NOTE | 2024-08-11 16:35 | DVH ---
EXAM: MRI LUMBAR SPINE WO CONTRAST CLINICAL HISTORY: BACK PAIN COMPARISON: None TECHNIQUE: MRI imaging of the lumbar was performed on a MRI imaging system without intravenous contrast. FINDINGS: 5 lju-paq-rzcommi lumbar-type vertebrae. Mild chronic loss of vertebral body height of T12 and L1.2 mm retrolisthesis of L1 on L2. The conus terminates at the level of the upper vertebral body of L1 with no abnormal cord signal. T12-L1: No significant spinal canal or neural foramina stenosis. L1-L2: Mild posterior disc bulge causing mild spinal canal stenosis with gqbc-sg-gceqmbpl left-sided neural foramina stenosis. Mild bilateral facet effusion. L2-L3: Minimal posterior disc bulge with mild ligamentum flavum hypertrophy causing mild spinal canal stenosis with severe Scjpn-xwsdupm-rgdi-left lateral recess narrowing and lyya-pa-ycbehizn bilateral neural foramina stenosis. L3-L4: Mild posterior disc bulge with ligamentum flavum hypertrophy causing moderate spinal canal boubacar nosis with severe bilateral lateral recess narrowing. Mild to moderate bilateral neural foramina sten osis. L4-L5: Posterior disc bulge with central posterior annular fissure causing moderate spinal canal sten osis with severe bilateral lateral recess narrowing. Moderate to severe right with mwtj-gb-qycnjhrq l eft-sided neural foramina stenosis. L5-S1: Minimal posterior disc bulge with ligamentum flavum hypertrophy without significant spinal can al stenosis. Moderate to severe bilateral neural foramina stenosis. Mild atrophy of the paraspinal and gluteal muscles. Small bilateral renal cysts are noted. IMPRESSION: Moderate spinal canal stenosis with severe bilateral lateral recess narrowing at L3-L4 at L4-L5. Carisa re bilateral lateral recess narrowing at L2-L3 . Moderate to severe right-sided neural foramina stenosis at L4-L5 and L5-S1
[2024-08-11] MEDS ORDERED: FURO40TA4 PO (16:46)
[2024-08-11] MEDS ORDERED: OMEP1CAP70 PO (16:46)
[2024-08-11] MEDS: LACTULOSE 20Gm/30ML SOLN PO SCH (18:09)
[2024-08-11] MEDS: TAMSULOSIN HYDROCHLORIDE 0.4 MG CAP PO SCH (18:09)
[2024-08-12] VITALS (8 sets, daily range): BP systolic 99–130; BP diastolic 61–75; PULSE 58–93; RESP 16–18; TEMP 97.4–97.5; O2SAT 91–94
--- NOTE | 2024-08-12 11:24 | DVHPN2 ---
Subjective The patient is seen and examined at bedside. The patient complained of pain in his abdomen and back. Reviewed: Care Plan, H&P, Labs, Medications, Previous Orders, Radiology Changes from previous H/P or p: No Changes Eyes: No Pain, No Vision change, No Conjunctivae inflammation, No Eyelid inflammation, No Other, No Redness ENT: No Ear pain, No Ear discharge, No Nose pain, No Nose discharge, No Nose congestion, No Mouth pain, No Mouth swelling, No Throat pain, No Throat swelling, No Other Cardiovascular: No Chest Pain, No Palpitations, No Orthopnea, No Paroxysmal Noc. Dyspnea, No Edema, No Lt Headedness, No Other Respiratory: No Cough, No Dry; Shortness of breath; No SOB with excertion, No Wheezing, No Hemoptysis, No Pleuritic Pain, No Sputum, No Other Gastrointestinal: Nausea, Vomiting, Abdominal Pain; No Diarrhea, No Constipation, No Melena, No Hematochezia, No Other Genitourinary: No Dysuria, No Frequency, No Incontinence, No Hematuria, No Retention, No Other Musculoskeletal: No other, No neck pain, No shoulder pain, No arm pain; back pain; No hand pain, No leg pain, No foot pain Skin: No Rash, No Lesions, No Jaundice, No Bruising, No Other Objective Vitals Vital Signs Date Time Temp Pulse Resp B/P (MAP) Pulse Ox O2 Delivery O2 Flow Rate FiO2 08/12/24 09:20 123/67 08/12/24 09:00 97.5 67 17 94 97.5 08/12/24 08:10 Room Air* 2 N/A Nasal Cannula* Intake/Output Intake and Output 08/12/24 07:00 Intake Total 1890 ml Balance 1890 ml Intake Oral 1890 ml # Voids 9 General Appearance: Alert, No acute distress HEENT: Atraumatic, PERRLA, EOMI, Mucous membr. moist/pink Neck: Supple Lungs: Clear to auscultation, Normal air movement Cardiovascular: Regular rate, Normal S1, Normal S2, No murmurs, Gallops, Rubs Abdomen: Normal bowel sounds, Soft, Other (Tenderness all four quadrants) Neuro: Cranial nerves 3-12 NL Psych/Mental Status: Mental status NL Medications Current Medications Medications Dose Ordered Sig/Charlette Route Start Time Stop Time Status Last Admin Dose Admin Furosemide 40 mg DAILY IV 08/10/24 10:00 08/12/24 09:20 40 MG Folic Acid 1 mg DAILY PO 08/10/24 10:00 08/12/24 09:18 1 MG Phenytoin Sodium 100 mg Q12HR PO 08/10/24 10:00 08/12/24 09:19 100 MG Apixaban 5 mg BID PO 08/10/24 10:00 08/12/24 09:18 5 MG Sodium Chloride 10 ml Q8HR IV 08/10/24 06:00 08/12/24 05:31 10 ML Acetaminophen/ Hydrocodone Bitart 1 tab Q4HP PRN PO 08/09/24 22:15 08/12/24 01:32 1 TAB Ondansetron HCl 4 mg Q4HP PRN IV 08/09/24 22:15 Docusate Sodium 100 mg BIDPRN PRN PO 08/09/24 22:15 Acetaminophen 650 mg Q6HP PRN PO 08/09/24 22:15 Nitroglycerin 0.4 mg Q5MINP PRN SL 08/09/24 23:30 Morphine Sulfate 2 mg Q30M PRN IV 08/09/24 23:30 Allopurinol 100 mg DAILY PO 08/11/24 10:00 08/12/24 09:18 100 MG Finasteride 5 mg DAILY PO 08/11/24 10:00 08/12/24 09:19 5 MG Midodrine 10 mg TID PO 08/10/24 22:00 08/11/24 06:50 10 MG Lactulose 30 ml Q6HR PO 08/11/24 18:00 08/11/24 18:09 30 ML Tamsulosin HCl 0.8 mg QPM PO 08/11/24 18:00 08/11/24 18:09 0.8 MG Laboratory Results Laboratory Tests 08/10/24 04:21 Urinalysis Test 08/10/24 01:25 Urine Color Light-yellow (Yellow) Urine Clarity Clear (Clear) Urine pH 5.5 (5.0-9.0) Urine Specific [place] 1.010 (1.001-1.035) Urine Protein Negative (Negative) Urine Ketones Negative (Negative) Urine Blood Trace /uL (Negative) H Urine Nitrite Negative (Negative) Urine Bilirubin Negative (Negative) Urine Urobilinogen Normal mg/dL (Negative) Urine Leukocyte Esterase Negative /uL (Negative) Urine RBC 4 /hpf (0 - 3) Urine Microscopic WBC 1 /HPF (0-3) Urine Squamous Epithelial Cells Few /hpf (<5) Urine Bacteria None seen /hpf (None Seen) Urine Hyaline Casts Many /lpf (0 - 2) Urine Mucus Few (None Seen) Urine Glucose Normal mg/dL (Normal) Labs and/or images reviewed: Labs reviewed by me Assessment/Plan Assessment/Plan Chronic back pain may due to acute on chronic fracture of vertebral bodies Acute fracture of T7-T8 Chronic T11 fracture Spinal stenosis at lumbar region Abdominal pain Constipation Hypercalcemia Hiatal hernia Acute exacerbation of congestive heart failure Continuing current management Continuing with Lasix. Colace p.r.n. for constipation MRI thoracic showed: Acute fractures of the T7 and T8 vertebral bodies as described above. This is significantly more pronounced at T7. Chronic T11 wedge-shaped compression fracture deformity. Moderate thoracic degenerative disc disease MRI lumbar showed: Moderate spinal canal stenosis with severe bilateral lateral recess narrowing at L3-L4 at L4-L5. Severe bilateral lateral recess narrowing at L2-L3 . Moderate to severe right-sided neural foramina stenosis at L4-L5 and L5-S1 Spine surgeon consult. Continue pain meds. Discussed with the patient at bedside for plan of care This medical document was created using an electronic medical record system with [employer] computerized dictation system. Although this document has been carefully reviewed, there may still be some phonetic and typographical errors. These areas are purely typographical due to imperfections of the software programs, and do not reflect any compromise in the patient's medical care. Plan discussed with: Patient My Orders Orders - KING INFANTE MD Procedure Category Date Status Time Lactulose Oral PHA 08/11/24 In Process 18:00 Tamsulosin PHA 08/11/24 In Process Hydrochloride (Flomax) 18:00 Thoracic Spine Without MRI 08/11/24 Resulted 12:36 Lumbar Spine Wo MRI 08/11/24 Resulted Contrast 12:36 * Orthopedic Consult CONS 08/12/24 Transmitted 11:23 Date of Service: Aug 12, 2024 Billing Provider: KING INFANTE MD Common Visit Codes: [id number] INP/OBS CARE(HIGH) KING INFANTE MD Aug 12, 2024 11:24
[2024-08-12] MEDS: DOCUSATE SOD 100 MG CAP PO PRN (12:52)
[2024-08-12] MEDS: CYCLOBENZAPRINE HCL 10 MG TAB PO SCH (14:11)
[2024-08-12] MEDS ORDERED: PHEN1CAP38 PO (16:46)
[2024-08-12] MEDS ORDERED: APIX5TAB PO (16:46)
[2024-08-12] MEDS ORDERED: PRED10TA PO (16:46)
[2024-08-13] VITALS (7 sets, daily range): BP systolic 100–108; BP diastolic 59–75; PULSE 51–95; RESP 15–18; TEMP 97–98; O2SAT 93–100
--- NOTE | 2024-08-13 11:23 | DVHINCON2 ---
Consultation - Spinal Surgery Date Seen: Aug 13, 2024 Referring Physician Referring Physician Attending Doctor: Michelle Singh MD Reason for Consultation Reason for Visit: Acute exacerbation of congestive heart failure Spine T vertebra fracture History of Present Illness History of Present Illness History of Present Illness The patient is a 78-year-old male morbidly obese with multiple past medical history including AFib, epilepsy, DVTs, and hypertension who presented to [facility] ED with complaint of intermittent back and abdominal pain. Patient reports symptoms progressively get worse with associated nausea, vomiting, back pain radiating to his abdomen, rating 6/10 numeric scale, shortness of breaths, getting worse that prompted this visit. Patient states on being seen and receiving an MRI here 2x weeks ago. Patient was seen and evaluated in the ED, laboratory data shows WBC 9.0, platelets 188, sodium 141, potassium 3.9, BUN 28, creatinine 1.25, glucose 103, calcium 11.1, lipase 21, lactic acid 1.9, BNP 2043.43, troponin 14, blood pressure 136/71, heart rate 64, temperature 97.5 F, O2 saturation 97% on oxygen. Abdomen/pelvis CT revealing small esophageal hernia, fecal retention in the colon consistent with constipation, inguinal hernias bilaterally. Chest x-ray revealing cardiomegaly with pulmonary vascular congestion. Patient was started on IV Lasix, please see medication orders section in the computer. Past Medical/Surgical History Past Medical/Surgical History Past Medical History AFib, CHF, HLD, HTN, hypotension, gout, epilepsy, lower extremity DVT's, BPH, CKF III, Chronic back pain. Past Surgical History Denies all surgeries Family History Reviewed, noncontributory to the management of this case. Family and Social History Family and Social History Family History Reviewed, noncontributory to the management of this case. Allergies and medications Allergies: Coded Allergies: NO KNOWN ALLERGIES (Unverified , 02/18/24) Home Meds Active Scripts Diclofenac Sodium (Topical) (Voltaren Arthritis Pain) 1 % Gel, 1 APPLIC EX Q6HP PRN for 30 Days, #60 GRAMS 0 Refills Prov:VICKIE RIOS MATERIAL SCHEDULER 6/ Lidocaine (LIDODERM 5% TOPICAL PATCH) 1 Patch Ph, 1 PATCH TOP DAILY for 30 Days, #30 PATCH 0 Refills Prov:VICKIE RIOS MATERIAL SCHEDULER //25 Hydrocodone-Acetaminophen (Hydrocodone Bitartrate/AC 5-325 mg) 1 Tab Tab, 1 TAB PO Q12HP PRN for 2 Days, #4 TAB 0 Refills Prov:BLANCAVICKIEJane Dominguez NP 07/21/24 Allopurinol (Allopurinol) 100 Mg Tab, 100 MG PO DAILY for 30 Days, #30 TAB 3 Refills Prov:NINA BULLARD MD 02/19/24 Prednisone (Prednisone) 20 Mg Tab, 20 MG PO QAM for 5 Days, #10 MG Prov:NINA BULLARD MD 02/19/24 Reported Medications Apixaban Base (ELIQUIS) 5 Mg Tab, 10 MG PO BID for 7 Days, TAB 10MG BID X 7 DAYS THEN 5MG PO BID FOR AT LEAST 6 MONTHS FOR DVT/PE TREATMENT 02/19/24 Metolazone (Metolazone) 10 Mg Tab, 10 MG PO QAM for 30 Days, MG 02/19/24 Furosemide (Furosemide) 40 Mg Tab, 40 MG PO DAILY for 30 Days, MG 02/19/24 Midodrine HCl (Midodrine HCl) 10 Mg Tab, 5 MG PO TIDPRN, TAB 02/19/24 Ezetimibe (Zetia) 10 Mg Tab, 1 TAB PO DAILY, #30 TAB 5 Refills 02/19/24 Tamsulosin Hcl (Tamsulosin Hcl) 0.4 Mg Cap, 0.8 MG PO QAM for 30 Days, MG 02/19/24 Finasteride (Finasteride) 5 Mg Tab, 5 MG PO DAILY for 30 Days, MG 02/19/24 Folic Acid (Folic Acid) 5 Mg Cap, 5 MG PO BID, CAP 02/19/24 Phenytoin Sodium (DILANTIN CAPSULE) 100 Mg Cp, 100 MG PO BID, CAP 02/19/24 Review of systems Review of Systems: NEURO:Normal Examination Vital signs Review of Systems Constitutional: Yes: Weakness; No: Fever, Chills, Sweats, Malaise, Other Eyes: No: Pain, Vision change, Conjunctivae inflammation, Eyelid inflammation, Other, Redness ENT: No: Ear pain, Ear discharge, Nose pain, Nose discharge, Nose congestion, Mouth pain, Mouth swelling, Throat pain, Throat swelling, Other Respiratory: Shortness of breath; No: Cough, Dry, SOB with excertion, Wheezing, Hemoptysis, Pleuritic Pain, Sputum, Wheezing, Other Cardiovascular: No: Chest Pain, Palpitations, Orthopnea, Paroxysmal Noc. Dyspnea, Edema, Lt Headedness, Other Gastrointestinal: Nausea, Vomiting, Abdominal Pain; No: Diarrhea, Constipation, Melena, Hematochezia, Other Genitourinary: No Dysuria, No Frequency, No Incontinence, No Hematuria, No Retention, No Other Musculoskeletal: back pain; No: other, neck pain, shoulder pain, arm pain, hand pain, leg pain, foot pain Skin: No: Rash, Lesions, Jaundice, Bruising, Other Neurological: No: Weakness, Numbness, Incoordination, Change in speech, Confusion, Seizures, Other Imaging PROCEDURE: MRI THORACIC SPINE WITHOUT Indication: BACK PAIN COMPARISON: None TECHNIQUE: Multiplanar multisequence images of the the thoracic spine are obtained. FINDINGS: For the purpose of this examination, there are 5 lumbar vertebral body types counting from the lumbosacral junction. Numbering of the thoracic spine is done counting from the lumbosacral junction Thoracic dextrocurvature. There is an acute T7 vertebral body fracture which extends through the inferior aspect of the vertebral body, anterior and posterior T7 vertebral body cortex. There is associated marrow edema, T1 hypointense signal. 2 mm retropulsion of the T7 vertebral body. Approximately 20% of the T7 vertebral body height. There is fracture of the T8 vertebral body which involves the inferior endplate, anterior inferior cortex without significant loss of height. No significant retropulsion. Associated marrow edema within the T7 and T8 vertebral bodies significantly more pronounced at T7. There is an old T11 wedge-shaped compression deformity with approximately 80% loss of the vertebral body height anteriorly and 3 mm retropulsion. The remaining thoracic heights are maintained. There is moderate thoracic multilevel disc space narrowing. The thoracic cord is normal in morphology and signal. There is no high-grade thoracic spinal canal stenosis. Aortic tortuosity. 1.5 cm left renal cyst. IMPRESSION: Acute fractures of the T7 and T8 vertebral bodies as described above. This is significantly more pronounced at T7. Chronic T11 wedge-shaped compression fracture deformity. Moderate thoracic degenerative disc disease. EDURE(s): MSL - LUMBAR SPINE WO CONTRAST REASON: BACK PAIN ORDER NUMBER(s): [id number], ACCESSION NUMBER(s): [id number] EXAM: MRI LUMBAR SPINE WO CONTRAST CLINICAL HISTORY: BACK PAIN COMPARISON: None TECHNIQUE: MRI imaging of the lumbar was performed on a MRI imaging system without intravenous contrast. FINDINGS: 5 xwc-ivm-zrkuvpw lumbar-type vertebrae. Mild chronic loss of vertebral body height of T12 and L1.2 mm retrolisthesis of L1 on L2. The conus terminates at the level of the upper vertebral body of L1 with no abnormal cord signal. T12-L1: No significant spinal canal or neural foramina stenosis. L1-L2: Mild posterior disc bulge causing mild spinal canal stenosis with qvlv-zr-gfxaybec left-sided neural foramina stenosis. Mild bilateral facet effusion. L2-L3: Minimal posterior disc bulge with mild ligamentum flavum hypertrophy causing mild spinal canal stenosis with severe Ruzjm-ewzeooj-mkgg-left lateral recess narrowing and myep-bz-dlgvpjzo bilateral neural foramina stenosis. L3-L4: Mild posterior disc bulge with ligamentum flavum hypertrophy causing moderate spinal canal stenosis with severe bilateral lateral recess narrowing. Mild to moderate bilateral neural foramina stenosis. L4-L5: Posterior disc bulge with central posterior annular fissure causing moderate spinal canal stenosis with severe bilateral lateral recess narrowing. Moderate to severe right with hnez-wx-gpmkvbvj left-sided neural foramina sten osis. L5-S1: Minimal posterior disc bulge with ligamentum flavum hypertrophy without significant spinal canal stenosis. Moderate to severe bilateral neural foramina stenosis. Mild atrophy of the paraspinal and gluteal muscles. Small bilateral renal cysts are noted. IMPRESSION: Moderate spinal canal stenosis with severe bilateral lateral recess narrowing at L3-L4 at L4-L5. Severe bilateral lateral recess narrowing at L2-L3 . Moderate to severe right-sided neural foramina stenosis at L4-L5 and L5-S1 Vital Signs Date Time Temp Pulse Resp B/P (MAP) Pulse Ox O2 Delivery O2 Flow Rate FiO2 08/13/24 09:59 106/75 08/13/24 09:00 98.0 54 18 95 98.0 08/12/24 20:00 Room Air* 0 21 Medications Current Medications Medications (Trade) Dose Ordered Sig/Charlette Route PRN Reason Start Time Stop Time Status Last Admin Cyclobenzaprine HCl (Flexeril Tablet) 10 mg TID PO 08/12/24 14:00 08/13/24 05:15 Laboratory Labs Test 08/10/24 04:21 08/10/24 01:25 08/09/24 15:55 08/09/24 12:38 Range/Units White Blood Count 6.2 # 4.4-10.8 10^3/uL Red Blood Count 5.06 4.5-5.90 10^6/uL Hemoglobin 14.5 13.5-17.5 g/dL Hematocrit 43.3 41.0-53.0 % Mean Corpuscular Volume 85.6 80.0-100.0 fL Mean Corpuscular Hemoglobin 28.7 28.0-32.0 pg Mean Corpuscular Hemoglobin Concent 33.5 32.0-36.0 g/dL Red Cell Distribution Width 16.2 H 11.8-14.3 % Platelet Count 169 140-450 10^3/uL Mean Platelet Volume 8.7 6.9-10.8 fL Neutrophils (%) (Auto) 66.3 37.0-80.0 % Lymphocytes (%) (Auto) 22.0 10.0-50.0 % Monocytes (%) (Auto) 10.2 0.0-12.0 % Eosinophils (%) (Auto) 0.9 0.0-7.0 % Basophils (%) (Auto) 0.6 0.0-2.0 % Neutrophils # (Auto) 4.1 1.6-8.6 10 ^3/uL Lymphocytes # (Auto) 1.4 0.4-5.4 10 ^3/uL Monocytes # (Auto) 0.6 0-1.3 10 ^3/uL Eosinophils # (Auto) 0.1 0-0.8 10 ^3/uL Basophils # (Auto) 0 0-0.2 10 ^3/uL Nucleated Red Blood Cells 0.0 % Sodium Level 141 136-145 mmol/L Potassium Level 4.0 3.5-5.1 mmol/L Chloride Level 105 98-107 mmol/L Carbon Dioxide Level 27 20-31 mmol/L Anion Gap 9 5-15 Blood Urea Nitrogen 27 H 9-23 mg/dL Creatinine 1.36 H 0.700-1.30 mg/dL Glomerular Filtration Rate Calc 53 >90 mL/min BUN/Creatinine Ratio 19.9 10.0-20.0 Serum Glucose 86 74-106 mg/dL Calcium Level 11.1 H 8.7-10.4 mg/dL Total Bilirubin 0.6 0.2-1.0 mg/dL Aspartate Amino Transferase (AST) 19 <34 U/L Alanine Aminotransferase (ALT) 18 7-40 U/L Alkaline Phosphatase 101 46-116 U/L Total Protein 6.9 5.7-8.2 g/dL Albumin 3.7 3.2-4.8 g/dL Urine Color Light-yellow Yellow Urine Clarity Clear Clear Urine pH 5.5 5.0-9.0 Urine Specific [place] 1.010 1.001-1.035 Urine Protein Negative Negative Urine Ketones Negative Negative Urine Blood Trace H Negative /uL Urine Nitrite Negative Negative Urine Bilirubin Negative Negative Urine Urobilinogen Normal Negative mg/dL Urine Leukocyte Esterase Negative Negative /uL Urine RBC 4 0 - 3 /hpf Urine Microscopic WBC 1 0-3 /HPF Urine Squamous Epithelial Cells Few <5 /hpf Urine Bacteria None seen None Seen /hpf Urine Hyaline Casts Many 0 - 2 /lpf Urine Mucus Few None Seen Urine Glucose Normal Normal mg/dL Troponin I High Sensitivity 14 </=54 ng/L Lactic Acid Level 1.9 0.4-2.0 mmol/L B-Type Natriuretic Peptide 2043.43 0-100 pg/mL Lipase 26 12-53 U/L Examination: GENERAL:Normal, HEENT:Normal, NECK:Normal, LUNGS:Abnormal (OM o2), CVS:Abnormal (PATIENT HAS POOR EXCERSIZE TOLERENCE), ABDOMEN:Abnormal (obese), MSK:Normal, SKIN:Abnormal (darkened thickened skin BLE), NEURO:Abnormal (numbness to BLE-present for years 4/5 LLE, 5/5 RLE. patient able to stand and get up to chair independently), :Normal Problem List/Assessment/Plan Problems: (1) Fracture, thoracic vertebra, compression Assessment and Plan Acute fractures of the T7 and T8 vertebral bodies as described above. This is significantly more pronounced at T7. Chronic T11 wedge-shaped compression fracture deformity. non operative managemen t Moderate thoracic degenerative disc disease Moderate spinal canal stenosis with severe bilateral lateral recess narrowing at L3-L4 at L4-L5. Severe bilateral lateral recess narrowing at L2-L3 . Moderate to severe right-sided neural foramina stenosis at L4-L5 and L5-S1 follow up as outpatient with PCP pt will need re evaluation of fractures in 3 months. If non healing the pcp will need to send spine referral- findings to be managed as outpatient Continue treatment and supportive measures per admitting team's discretion Physical therapy trial without TLSO brace suggested, if the patient has pain with standing and ambulation dmitry TLSO brace and continue evaluation. Muscle relaxers as needed to reduce muscle spasms help control pain Oral analgesics Patient can follow up with his PCP and if needed in three months he should have a repeat thoracic spine CT scan to evaluate the healing of his fractures. If there is a nonhealing situation than a referral for spine surgery is warranted Call with questions Cris Winn [facility] Orthopaedic Spine Surgery nurse practitioner For Dr Cecile Hernandez Patient was examined, chart reviewed, labs evaluated, and diagnostic studies and findings analyzed. Case was discussed with Dr. Mendoza Hernandez who formulated the plan of care. This medical document was created using an electronic medical record system with [employer] dictation system. Although this document has been carefully reviewed, there might still be some phonetic and typographical errors. These areas are purely typographical due to imperfections of the software programs, and do not reflect any compromise in the patient's medical care. Plan discussed with Plan discussed with: Patient, Daughter (daughter in law), Other (bedside RN covering ) SUBHASH WINN NP Aug 13, 2024 11:23
[2024-08-13 15:33] LABS: Alanine Aminotransferase 14 U/L (7-40); Albumin 4.2 g/dL (3.2-4.8); Anion Gap 9 (5-15); Aspartate Aminotransferase 17 U/L (<34); BUN/Creatinine Ratio 15.9 (10.0-20.0); Blood Urea Nitrogen 21 mg/dL (9-23); Carbon Dioxide 28 mmol/L (20-31); Chloride 102 mmol/L (98-107); Glucose 101 mg/dL (74-106); Potassium 3.8 mmol/L (3.5-5.1); Sodium 139 mmol/L (136-145); Total Protein 7.6 g/dL (5.7-8.2)
[2024-08-13 15:34] LABS: Alkaline Phosphatase 118 U/L (46-116); Bilirubin, Total 0.7 mg/dL (0.2-1.0); Calcium 11.4 mg/dL (8.7-10.4)
--- NOTE | 2024-08-13 17:41 | DVHPN2 ---
Subjective Pain is still present, improving shortness of breath. Reviewed: Care Plan, H&P, Labs, Medications, Previous Orders, Radiology Changes from previous H/P or p: No Changes General: Per HPI Eyes: No Pain, No Vision change, No Conjunctivae inflammation, No Eyelid inflammation, No Other, No Redness ENT: No Ear pain, No Ear discharge, No Nose pain, No Nose discharge, No Nose congestion, No Mouth pain, No Mouth swelling, No Throat pain, No Throat swelling, No Other Cardiovascular: No Chest Pain, No Palpitations, No Orthopnea, No Paroxysmal Noc. Dyspnea, No Edema, No Lt Headedness, No Other Respiratory: No Cough, No Dry; Shortness of breath; No SOB with excertion, No Wheezing, No Hemoptysis, No Pleuritic Pain, No Sputum, No Other Gastrointestinal: Nausea, Vomiting, Abdominal Pain; No Diarrhea, No Constipation, No Melena, No Hematochezia, No Other Genitourinary: No Dysuria, No Frequency, No Incontinence, No Hematuria, No Retention, No Other Musculoskeletal: No other, No neck pain, No shoulder pain, No arm pain; back pain; No hand pain, No leg pain, No foot pain Skin: No Rash, No Lesions, No Jaundice, No Bruising, No Other Objective Vitals Vital Signs Date Time Temp Pulse Resp B/P (MAP) Pulse Ox O2 Delivery O2 Flow Rate FiO2 08/13/24 12:54 97.6 70 15 103/68 (80) 93 97.6 08/13/24 08:00 Room Air* 2 N/A Nasal Cannula* Intake/Output Intake and Output 08/13/24 07:00 Intake Total 2550 ml Balance 2550 ml Intake Oral 2550 ml # Voids 9 # Bowel Movements 2 Exam GEN: Healthy appearing, well-developed, NAD. HEENT: NC/AT; MMM. CV: RRR, no m/r/g. LUNGS: Rales bilaterally up to middle lobes. ABD: Soft, NT/ND, NBS, no masses or organomegaly. EXT: skin Warm, well perfused. no rashes. No clubbing, cyanosis, or edema. NEURO: Ambulating with no limitations. No focal deficits. General Appearance: Alert, No acute distress HEENT: Atraumatic, PERRLA, EOMI, Mucous membr. moist/pink Neck: Supple Lungs: Clear to auscultation, Normal air movement Cardiovascular: Regular rate, Normal S1, Normal S2, No murmurs, Gallops, Rubs Abdomen: Normal bowel sounds, Soft, Other (Tenderness all four quadrants) Neuro: Cranial nerves 3-12 NL Psych/Mental Status: Mental status NL Medications Current Medications Medications Dose Ordered Sig/Charlette Route Start Time Stop Time Status Last Admin Dose Admin Furosemide 40 mg DAILY IV 08/10/24 10:00 08/13/24 09:59 40 MG Folic Acid 1 mg DAILY PO 08/10/24 10:00 08/13/24 09:56 1 MG Phenytoin Sodium 100 mg Q12HR PO 08/10/24 10:00 08/13/24 09:57 100 MG Apixaban 5 mg BID PO 08/10/24 10:00 08/13/24 09:56 5 MG Sodium Chloride 10 ml Q8HR IV 08/10/24 06:00 08/13/24 14:32 10 ML Acetaminophen/ Hydrocodone Bitart 1 tab Q4HP PRN PO 08/09/24 22:15 08/12/24 12:51 1 TAB Ondansetron HCl 4 mg Q4HP PRN IV 08/09/24 22:15 Docusate Sodium 100 mg BIDPRN PRN PO 08/09/24 22:15 08/12/24 12:52 100 MG Acetaminophen 650 mg Q6HP PRN PO 08/09/24 22:15 Nitroglycerin 0.4 mg Q5MINP PRN SL 08/09/24 23:30 Morphine Sulfate 2 mg Q30M PRN IV 08/09/24 23:30 Allopurinol 100 mg DAILY PO 08/11/24 10:00 08/13/24 09:56 100 MG Finasteride 5 mg DAILY PO 08/11/24 10:00 08/13/24 09:55 5 MG Midodrine 10 mg TID PO 08/10/24 22:00 08/11/24 06:50 10 MG Lactulose 30 ml Q6HR PO 08/11/24 18:00 08/13/24 11:16 30 ML Tamsulosin HCl 0.8 mg QPM PO 08/11/24 18:00 08/12/24 17:08 0.8 MG Cyclobenzaprine HCl 10 mg TID PO 08/12/24 14:00 08/13/24 14:33 10 MG Laboratory Results Laboratory Tests 08/10/24 04:21 08/13/24 15:00 Chemistry Test 08/13/24 15:00 Albumin 4.2 g/dL (3.2-4.8) Calcium Level 11.4 mg/dL (8.7-10.4) H Total Protein 7.6 g/dL (5.7-8.2) LFT Test 08/13/24 15:00 Alanine Aminotransferase (ALT) 14 U/L (7-40) Alkaline Phosphatase 118 U/L (46-116) H Aspartate Amino Transferase (AST) 17 U/L (<34) Total Bilirubin 0.7 mg/dL (0.2-1.0) Urinalysis Test 08/10/24 01:25 Urine Color Light-yellow (Yellow) Urine Clarity Clear (Clear) Urine pH 5.5 (5.0-9.0) Urine Specific [place] 1.010 (1.001-1.035) Urine Protein Negative (Negative) Urine Ketones Negative (Negative) Urine Blood Trace /uL (Negative) H Urine Nitrite Negative (Negative) Urine Bilirubin Negative (Negative) Urine Urobilinogen Normal mg/dL (Negative) Urine Leukocyte Esterase Negative /uL (Negative) Urine RBC 4 /hpf (0 - 3) Urine Microscopic WBC 1 /HPF (0-3) Urine Squamous Epithelial Cells Few /hpf (<5) Urine Bacteria None seen /hpf (None Seen) Urine Hyaline Casts Many /lpf (0 - 2) Urine Mucus Few (None Seen) Urine Glucose Normal mg/dL (Normal) Labs and/or images reviewed: Labs reviewed by me, Image(s) reviewed by me Assessment/Plan Assessment/Plan 08/13 taking over the case for Dr. aptino . Patient was seen by spinal surgery MRI is done showing fracture at T7-8. There is also stenosis multiple levels moderate to severe L3-L5 and L4-S1. Spinal surgery wants to try conservative measures at this time with PT with brace, muscle relaxants and pain control, and a [address] T-spine. Otherwise spinal surgery signs of. Patient has other issues as well echo was done has not been read in his pending. We will make Cardiology aware. Patient family is aware and concern for volume overload with history of HFrEF. Patient on exam sounds volume overload. Patient is on Lasix IV 40 daily we will increase it to t.i.d.. No labs labs with done today. We will follow up tomorrow Chronic back pain may due to acute on chronic fracture of vertebral bodies Acute fracture of T7-T8 Chronic T11 fracture Spinal stenosis at lumbar region Abdominal pain Constipation Hypercalcemia Hiatal hernia Acute exacerbation of congestive heart failure -Continuing current management --Continuing with Lasix.. but increased to tid. -Colace p.r.n. for constipation -MRI thoracic showed: Acute fractures of the T7 and T8 vertebral bodies as described above. This is significantly more pronounced at T7. Chronic T11 wedge-shaped compression fracture deformity. Moderate thoracic degenerative disc disease -MRI lumbar showed: Moderate spinal canal stenosis with severe bilateral lateral recess narrowing at L3-L4 at L4-L5. Severe bilateral lateral recess narrowing at L2-L3 . Moderate to severe right-sided neural foramina stenosis at L4-L5 and L5-S1 -Spine surgeon consult. signed off case -Continue pain meds. -Discussed with the patient at bedside for plan of care - continuing home meds allopurinol, Eliquis, - muscle relaxant cyclobenzaprine 10 t.i.d. - we will replace with baclofen as this is causing excessive drowsiness - continue finasteride, folic, midodrine 10 t.i.d., phenytoin 100 b.i.d., Flomax 0.8 q.p.m., diet cardiac DVT prophylaxis-ambulatory GI prophylaxis tolerating p.o. Tele Full code Plan discussed with: Patient My Orders Orders - TITA SANON MD Procedure Category Date Status Time Furosemide Injection PHA 08/13/24 Logged (Lasix Injection) 17:30 Date of Service: Aug 13, 2024 Billing Provider: TITA SANON MD Common Visit Codes: [id number] INP/OBS CARE(HIGH) TITA SANON MD Aug 13, 2024 17:41
--- NOTE | 2024-08-13 17:51 | DVHSR ---
APPROVED REPORT EXAM: Two-dimensional and M-mode echocardiogram with Doppler and color Doppler. Blood Pressure: 130/58 mmHg INDICATION CHF RISK FACTORS Height: 5'7", Weight: 203 DIMENSIONS LVDd3.7 (3.8-5.7cm)LA (2D)3.6 (1.9-4.0cm)Aortic Root3.8 (2.0-3.7cm) LVDs2.7 (2.5-4.0cm)LA (MM) (1.9-4.0cm)Aortic Cusp Exc1.1 (1.5-2.0cm) EF (%) 60.0 (55-70%)Rt. Atrium4.0 (1.9-4.0cm)Asc. Aorta cm IVSd1.2 (0.7-1.1cm)RV (D) (1.8-2.4cm) PWd1.0 (0.7-1.1cm) Mitral Valve MitralMitral Stenosis E wave0.81m/sMV Mean GR.mmHg A wave0.71m/sMV Peak GR.mmHg E/A ratio1.12D MVAcm2 DECEL [id number] 1/2 Timems Aortic Valve Aortic ValveAortic Stenosis V11.14m/Shiva Mean GR.11mmHg V22.31m/Shiva Peak GR.21mmHg LVOT Diameter1.9 (1.8-2.4cm)Doppler AVA1.40cm2 Pulmonic Valve V21.05m/s Tricuspid Valve TR Velocity2.64m/s [id number] Other Information Technically limited study due to body habitus. Conclusion Technically difficult study. Off axis views. Aortic root enlargement. Left atrium appears to be within normal limits. Moderate aortic sclerosis with diminished excursion of the aortic leaflets. Moderate calcification n oted. The mitral and tricuspid are normal. Left ventricular function is borderline at 50%. Normal RV function. Mild aortic sclerosis. No stenosis. Mild tricuspid regurgitation. RV pressures at 40 mmHg. No pericardial effusion masses or vegetations.
[2024-08-13] MEDS: FUROSEMIDE 40 MG/4 ML VIAL IV SCH (18:03)
[2024-08-13] MEDS: BACLOFEN 10 MG TAB PO SCH (21:08)
[2024-08-14] VITALS (8 sets, daily range): BP systolic 94–117; BP diastolic 44–69; PULSE 55–101; RESP 18–21; TEMP 96.5–97.9; O2SAT 92–95
[2024-08-14 07:00] LABS: Alanine Aminotransferase 12 U/L (7-40); Alkaline Phosphatase 116 U/L (46-116); Anion Gap 9 (5-15); Aspartate Aminotransferase 14 U/L (<34); BUN/Creatinine Ratio 12.8 (10.0-20.0); Basophils # (auto) 0 10 ^3/uL (0-0.2); Basophils % (auto) 0.8 % (0.0-2.0); Bilirubin, Total 0.6 mg/dL (0.2-1.0); Blood Urea Nitrogen 19 mg/dL (9-23); Calcium 11.7 mg/dL (8.7-10.4); Carbon Dioxide 28 mmol/L (20-31); Chloride 102 mmol/L (98-107); Eosinophils # (auto) 0.1 10 ^3/uL (0-0.8); Eosinophils % (auto) 2.4 % (0.0-7.0); Glucose 96 mg/dL (74-106); Hematocrit 45.9 % (41.0-53.0); Hemoglobin 15.4 g/dL (13.5-17.5); Lymphocytes # (auto) 1.5 10 ^3/uL (0.4-5.4); Lymphocytes % (auto) 32.7 % (10.0-50.0); Mean Corpuscular Hemoglobin 28.4 pg (28.0-32.0); Mean Corpuscular Hgb Conc. 33.5 g/dL (32.0-36.0); Monocytes # (auto) 0.6 10 ^3/uL (0-1.3); Monocytes % (auto) 12.1 % (0.0-12.0); Neutrophils # (auto) 2.5 10 ^3/uL (1.6-8.6); Nucleated Red Blood Cells % 0.2 %; Platelet Count (auto) 195 10^3/uL (140-450); Potassium 3.9 mmol/L (3.5-5.1); Red Blood Cells 5.41 10^6/uL (4.5-5.90); Red Cell Distribution Width 15.9 % (11.8-14.3); Sodium 139 mmol/L (136-145); Total Protein 7.2 g/dL (5.7-8.2); White Blood Cell 4.7 10^3/uL (4.4-10.8)
[2024-08-14 12:33] LABS: Chloride 100 mmol/L (98-107); Potassium 3.7 mmol/L (3.5-5.1); Sodium 137 mmol/L (136-145)
[2024-08-14 12:34] LABS: Anion Gap 8 (5-15); Carbon Dioxide 29 mmol/L (20-31)
[2024-08-14 12:35] LABS: Calcium 11.5 mg/dL (8.7-10.4)
[2024-08-14 12:39] LABS: BUN/Creatinine Ratio 13.8 (10.0-20.0); Blood Urea Nitrogen 22 mg/dL (9-23)
[2024-08-14 12:40] LABS: Glucose 118 mg/dL (74-106)
--- NOTE | 2024-08-14 15:31 | DVHPN2 ---
Subjective Pain is still present, improving shortness of breath. Reviewed: Care Plan, H&P, Labs, Medications, Previous Orders, Radiology Changes from previous H/P or p: No Changes General: Per HPI Eyes: No Pain, No Vision change, No Conjunctivae inflammation, No Eyelid inflammation, No Other, No Redness ENT: No Ear pain, No Ear discharge, No Nose pain, No Nose discharge, No Nose congestion, No Mouth pain, No Mouth swelling, No Throat pain, No Throat swelling, No Other Cardiovascular: No Chest Pain, No Palpitations, No Orthopnea, No Paroxysmal Noc. Dyspnea, No Edema, No Lt Headedness, No Other Respiratory: No Cough, No Dry; Shortness of breath; No SOB with excertion, No Wheezing, No Hemoptysis, No Pleuritic Pain, No Sputum, No Other Gastrointestinal: Nausea, Vomiting, Abdominal Pain; No Diarrhea, No Constipation, No Melena, No Hematochezia, No Other Genitourinary: No Dysuria, No Frequency, No Incontinence, No Hematuria, No Retention, No Other Musculoskeletal: No other, No neck pain, No shoulder pain, No arm pain; back pain; No hand pain, No leg pain, No foot pain Skin: No Rash, No Lesions, No Jaundice, No Bruising, No Other Objective Vitals Vital Signs Date Time Temp Pulse Resp B/P (MAP) Pulse Ox O2 Delivery O2 Flow Rate FiO2 08/14/24 12:41 96.5 101 18 99/69 (79) 95 96.5 08/14/24 08:00 Room Air* 0 N/A Nasal Cannula* Intake/Output Intake and Output 08/14/24 07:00 Intake Total 1600 ml Balance 1600 ml Intake Oral 1600 ml # Voids 6 # Bowel Movements 1 Exam GEN: Healthy appearing, well-developed, NAD. HEENT: NC/AT; MMM. CV: RRR, no m/r/g. LUNGS: Rales bilaterally up to middle lobes. ABD: Soft, NT/ND, NBS, no masses or organomegaly. EXT: skin Warm, well perfused. no rashes. No clubbing, cyanosis, or edema. NEURO: Ambulating with no limitations. No focal deficits. General Appearance: Alert, No acute distress HEENT: Atraumatic, PERRLA, EOMI, Mucous membr. moist/pink Neck: Supple Lungs: Clear to auscultation, Normal air movement Cardiovascular: Regular rate, Normal S1, Normal S2, No murmurs, Gallops, Rubs Abdomen: Normal bowel sounds, Soft, Other (Tenderness all four quadrants) Neuro: Cranial nerves 3-12 NL Psych/Mental Status: Mental status NL Medications Current Medications Medications Dose Ordered Sig/Charlette Route Start Time Stop Time Status Last Admin Dose Admin Folic Acid 1 mg DAILY PO 08/10/24 10:00 08/14/24 10:15 1 MG Phenytoin Sodium 100 mg Q12HR PO 08/10/24 10:00 08/14/24 10:15 100 MG Apixaban 5 mg BID PO 08/10/24 10:00 08/14/24 10:16 5 MG Sodium Chloride 10 ml Q8HR IV 08/10/24 06:00 08/14/24 05:36 10 ML Acetaminophen/ Hydrocodone Bitart 1 tab Q4HP PRN PO 08/09/24 22:15 08/14/24 10:14 1 TAB Ondansetron HCl 4 mg Q4HP PRN IV 08/09/24 22:15 Docusate Sodium 100 mg BIDPRN PRN PO 08/09/24 22:15 08/12/24 12:52 100 MG Acetaminophen 650 mg Q6HP PRN PO 08/09/24 22:15 Nitroglycerin 0.4 mg Q5MINP PRN SL 08/09/24 23:30 Morphine Sulfate 2 mg Q30M PRN IV 08/09/24 23:30 Allopurinol 100 mg DAILY PO 08/11/24 10:00 08/14/24 10:15 100 MG Finasteride 5 mg DAILY PO 08/11/24 10:00 08/14/24 10:16 5 MG Midodrine 10 mg TID PO 08/10/24 22:00 08/14/24 05:36 10 MG Tamsulosin HCl 0.8 mg QPM PO 08/11/24 18:00 08/13/24 18:02 0.8 MG Baclofen 10 mg BID PO 08/13/24 22:00 08/14/24 10:15 10 MG Laboratory Results Laboratory Tests 08/14/24 06:17 08/14/24 12:02 Chemistry Test 08/14/24 06:17 08/14/24 12:02 Albumin 4.0 g/dL (3.2-4.8) Calcium Level 11.7 mg/dL (8.7-10.4) H 11.5 mg/dL (8.7-10.4) H Total Protein 7.2 g/dL (5.7-8.2) LFT Test 08/14/24 06:17 Alanine Aminotransferase (ALT) 12 U/L (7-40) Alkaline Phosphatase 116 U/L (46-116) Aspartate Amino Transferase (AST) 14 U/L (<34) Total Bilirubin 0.6 mg/dL (0.2-1.0) Urinalysis Test 08/10/24 01:25 Urine Color Light-yellow (Yellow) Urine Clarity Clear (Clear) Urine pH 5.5 (5.0-9.0) Urine Specific [place] 1.010 (1.001-1.035) Urine Protein Negative (Negative) Urine Ketones Negative (Negative) Urine Blood Trace /uL (Negative) H Urine Nitrite Negative (Negative) Urine Bilirubin Negative (Negative) Urine Urobilinogen Normal mg/dL (Negative) Urine Leukocyte Esterase Negative /uL (Negative) Urine RBC 4 /hpf (0 - 3) Urine Microscopic WBC 1 /HPF (0-3) Urine Squamous Epithelial Cells Few /hpf (<5) Urine Bacteria None seen /hpf (None Seen) Urine Hyaline Casts Many /lpf (0 - 2) Urine Mucus Few (None Seen) Urine Glucose Normal mg/dL (Normal) Labs and/or images reviewed: Labs reviewed by me, Image(s) reviewed by me Assessment/Plan Assessment/Plan 08/13 taking over the case for Dr. patino . Patient was seen by spinal surgery MRI is done showing fracture at T7-8. There is also stenosis multiple levels moderate to severe L3-L5 and L4-S1. Spinal surgery wants to try conservative measures at this time with PT with brace, muscle relaxants and pain control, and a [address] T-spine. Otherwise spinal surgery signs of. Patient has other issues as well echo was done has not been read in his pending. We will make Cardiology aware. Patient family is aware and concern for volume overload with history of HFrEF. Patient on exam sounds volume overload. Patient is on Lasix IV 40 daily we will increase it to t.i.d.. No labs labs with done today. We will follow up tomorrow 08/14 - patient continues to complain of back pain. We will have manager social media to help us with getting a TLSO brace. Patient family is very difficult. They have multiple questions. Family wants to speak to spinal surgeon team again. Spine surgeon team has been notified. Spine surgeon team has signed off and plan is on note above from 08/13. Echo has been read and showing EF 50% and aortic sclerosis from aging. No acute or worrisome findings on echo. This a.m. patient appears to be more euvolemic. Creatinine is increasing from 1.3-1.6. We will hold off further diuresis. Had a long discussion with family today over the phone and EMMANUEL sons brother at bedside. Spoke to EMMANUEL adkins son over the phone. Four main topics were discussed: 1. renal function, 2. spinal surgeon team we will contact them again, 3. Heart failure exacerbation resolved and echo finding discussed, 4. Found hypercalcemia with elevated PTH and we will get parathyroid sestamibi scan to expedite workup. There is no urgent indication for IVs alendronate or p.o. bisphosphonates. We will expedite workup and have patient follow up outpatient - update: spinal team will d/w family. tentative plan for TLSO brace, lyrica, optimize health, PT, poor surgical candidate, follow-up outpatient . avoid NSAID/toradol, avoid prednisone/steroids Diagnosis: Chronic back pain may due to acute on chronic fracture of vertebral bodies Acute fracture of T7-T8 Chronic T11 fracture Spinal stenosis at lumbar region Abdominal pain Constipation Hypercalcemia Hiatal hernia Acute exacerbation of congestive heart failure HFpEF Gout Hx Afib Hx DVT on Chronic AC (eliquis) hx epilepsy. on phenytoin. Plan: -Continuing current management --Continuing with Lasix.. but increased to tid. - STOP on 08/14 (euvolemic, Cr rise) -Colace p.r.n. for constipation -MRI thoracic showed: Acute fractures of the T7 and T8 vertebral bodies as described above. This is significantly more pronounced at T7. Chronic T11 wedge-shaped compression fracture deformity. Moderate thoracic degenerative disc disease -MRI lumbar showed: Moderate spinal canal stenosis with severe bilateral lateral recess narrowing at L3-L4 at L4-L5. Severe bilateral lateral recess narrowing at L2-L3 . Moderate to severe right-sided neural foramina stenosis at L4-L5 and L5-S1 -Spine surgeon consult. signed off case -Continue pain meds. -Discussed with the patient at bedside for plan of care - continuing home meds allopurinol, Eliquis, - muscle relaxant cyclobenzaprine 10 t.i.d. - we will replace with baclofen as this is causing excessive drowsiness - continue finasteride, folic, midodrine 10 t.i.d., phenytoin 100 b.i.d., Flomax 0.8 q.p.m., - start lyrica 08/14 diet cardiac DVT prophylaxis-ambulatory GI prophylaxis tolerating p.o. Tele Full code Plan discussed with: Patient My Orders Orders - TITA SANON MD Procedure Category Date Status Time Baclofen Tablet PHA 08/13/24 In Process (Liorisal Tablet) 22:00 Parathyroid NM 08/14/24 Logged 13:28 Date of Service: Aug 14, 2024 Billing Provider: TITA SANON MD Common Visit Codes: [id number] INP/OBS CARE(HIGH) TITA SANON MD Aug 14, 2024 15:31
[2024-08-14] MEDS: PREGABALIN CAPSULE 75 MG CAP PO ONE (18:23)
[2024-08-15] VITALS (8 sets, daily range): BP systolic 118–167; BP diastolic 59–77; PULSE 49–64; RESP 16–22; TEMP 96.6–98.1; O2SAT 90–99
[2024-08-15 06:57] LABS: Alanine Aminotransferase 14 U/L (7-40); Albumin 3.7 g/dL (3.2-4.8); Alkaline Phosphatase 112 U/L (46-116); Anion Gap 7 (5-15); Aspartate Aminotransferase 15 U/L (<34); BUN/Creatinine Ratio 16.3 (10.0-20.0); Bilirubin, Total 0.5 mg/dL (0.2-1.0); Blood Urea Nitrogen 26 mg/dL (9-23); Calcium 10.5 mg/dL (8.7-10.4); Carbon Dioxide 29 mmol/L (20-31); Chloride 102 mmol/L (98-107); Glucose 108 mg/dL (74-106); Potassium 4.2 mmol/L (3.5-5.1); Sodium 138 mmol/L (136-145); Total Protein 6.8 g/dL (5.7-8.2)
[2024-08-15] MEDS: PREGABALIN CAPSULE 75 MG CAP PO SCH (08:00)
--- NOTE | 2024-08-15 11:49 | DVH ---
CT HEAD WITHOUT CONTRAST Indication: Fall EXAM DATE: 08/15/2024 11:12 AM COMPARISON: None TECHNIQUE: CT of the head without intravenous contrast. RADIATION DOSE: CTDIvol: 51.92 mGy, DLP: 919.48 mGy*cm FINDINGS: There is no intracranial hemorrhage. There is no extra-axial fluid, mass, mass effect or midline shif t. The ventricles are midline and normal in size. Basilar cisterns are patent. There are ybot-it-[id number] rate periventricular and subcortical white matter chronic microvascular ischemic changes. Moderate gl obal cerebral volume loss. Old bilateral basal ganglia lacunar infarcts. Left mastoid effusion.. Imaged portion of the orbits are unremarkable. IMPRESSION: No intracranial hemorrhage or mass effect. [id number] chronic microvascular ischemic changes. Old bilateral basal ganglia lacunar infarcts . Moderate global cerebral volume loss. Left mastoid effusion.
--- NOTE | 2024-08-15 11:52 | DVH ---
EXAM: XY L SHOULDER 2+ VIEW XRAY CLINICAL INDICATION: fall TECHNIQUE: XY L SHOULDER 2+ VIEW XRAY Comparison: None FINDINGS/IMPRESSION: There is no evidence of acute fracture or dislocation. The alignment is anatomical. There is no radiopaque foreign body.
--- NOTE | 2024-08-15 11:53 | DVH ---
EXAM: XY L HIP COMPLETE XRAY CLINICAL INDICATION: fall TECHNIQUE: XY L HIP COMPLETE XRAY Comparison: None FINDINGS/IMPRESSION: There is no evidence of acute fracture or dislocation. Moderate bilateral hip osteoarthritis. The alignment is anatomical. There is no radiopaque foreign body.
[2024-08-15] MEDS: SODIUM CHLORIDE 0.9% 250 ML IV ONE (12:10)
[2024-08-15 15:20] LABS: Chloride 104 mmol/L (98-107); Potassium 4.2 mmol/L (3.5-5.1); Sodium 139 mmol/L (136-145)
[2024-08-15 15:21] LABS: Anion Gap 5 (5-15); Carbon Dioxide 30 mmol/L (20-31)
[2024-08-15 15:24] LABS: Calcium 11.1 mg/dL (8.7-10.4)
[2024-08-15 15:26] LABS: BUN/Creatinine Ratio 20.4 (10.0-20.0); Glucose 105 mg/dL (74-106)
[2024-08-15 15:27] LABS: Blood Urea Nitrogen 28 mg/dL (9-23)
--- NOTE | 2024-08-15 17:03 | DVHPN2 ---
Subjective Pain is still present, improving shortness of breath. Reviewed: Care Plan, H&P, Labs, Medications, Previous Orders, Radiology Changes from previous H/P or p: No Changes General: Per HPI Eyes: No Pain, No Vision change, No Conjunctivae inflammation, No Eyelid inflammation, No Other, No Redness ENT: No Ear pain, No Ear discharge, No Nose pain, No Nose discharge, No Nose congestion, No Mouth pain, No Mouth swelling, No Throat pain, No Throat swelling, No Other Cardiovascular: No Chest Pain, No Palpitations, No Orthopnea, No Paroxysmal Noc. Dyspnea, No Edema, No Lt Headedness, No Other Respiratory: No Cough, No Dry; Shortness of breath; No SOB with excertion, No Wheezing, No Hemoptysis, No Pleuritic Pain, No Sputum, No Other Gastrointestinal: Nausea, Vomiting, Abdominal Pain; No Diarrhea, No Constipation, No Melena, No Hematochezia, No Other Genitourinary: No Dysuria, No Frequency, No Incontinence, No Hematuria, No Retention, No Other Musculoskeletal: No other, No neck pain, No shoulder pain, No arm pain; back pain; No hand pain, No leg pain, No foot pain Skin: No Rash, No Lesions, No Jaundice, No Bruising, No Other Objective Vitals Vital Signs Date Time Temp Pulse Resp B/P (MAP) Pulse Ox O2 Delivery O2 Flow Rate FiO2 08/15/24 13:04 96.6 58 19 124/59 (80) 99 96.6 08/15/24 08:20 Room Air* 0 N/A Nasal Cannula* Intake/Output Intake and Output 08/15/24 07:00 Intake Total 1320 ml Balance 1320 ml Intake Oral 1320 ml # Voids 4 Exam GEN: Healthy appearing, well-developed, NAD. HEENT: NC/AT; MMM. CV: RRR, no m/r/g. LUNGS: Rales bilaterally up to middle lobes. ABD: Soft, NT/ND, NBS, no masses or organomegaly. EXT: skin Warm, well perfused. no rashes. No clubbing, cyanosis, or edema. NEURO: Ambulating with no limitations. No focal deficits. General Appearance: Alert, No acute distress HEENT: Atraumatic, PERRLA, EOMI, Mucous membr. moist/pink Neck: Supple Lungs: Clear to auscultation, Normal air movement Cardiovascular: Regular rate, Normal S1, Normal S2, No murmurs, Gallops, Rubs Abdomen: Normal bowel sounds, Soft, Other (Tenderness all four quadrants) Neuro: Cranial nerves 3-12 NL Psych/Mental Status: Mental status NL Medications Current Medications Medications Dose Ordered Sig/Charlette Route Start Time Stop Time Status Last Admin Dose Admin Folic Acid 1 mg DAILY PO 08/10/24 10:00 08/15/24 10:28 1 MG Phenytoin Sodium 100 mg Q12HR PO 08/10/24 10:00 08/15/24 10:28 100 MG Apixaban 5 mg BID PO 08/10/24 10:00 08/15/24 10:28 5 MG Sodium Chloride 10 ml Q8HR IV 08/10/24 06:00 08/15/24 14:56 10 ML Acetaminophen/ Hydrocodone Bitart 1 tab Q4HP PRN PO 08/09/24 22:15 08/15/24 10:28 1 TAB Ondansetron HCl 4 mg Q4HP PRN IV 08/09/24 22:15 Docusate Sodium 100 mg BIDPRN PRN PO 08/09/24 22:15 08/12/24 12:52 100 MG Acetaminophen 650 mg Q6HP PRN PO 08/09/24 22:15 Nitroglycerin 0.4 mg Q5MINP PRN SL 08/09/24 23:30 Morphine Sulfate 2 mg Q30M PRN IV 08/09/24 23:30 Allopurinol 100 mg DAILY PO 08/11/24 10:00 08/15/24 10:28 100 MG Finasteride 5 mg DAILY PO 08/11/24 10:00 08/15/24 10:28 5 MG Midodrine 10 mg TID PO 08/10/24 22:00 08/15/24 06:09 10 MG Tamsulosin HCl 0.8 mg QPM PO 08/11/24 18:00 08/14/24 18:23 0.8 MG Baclofen 10 mg BID PO 08/13/24 22:00 08/15/24 10:28 10 MG Pregabalin 150 mg BID PO 08/15/24 08:00 Alendronate Sodium 10 mg QAM@0600 PO 08/16/24 06:00 Laboratory Results Laboratory Tests 08/14/24 06:17 08/15/24 14:53 Chemistry Test 08/15/24 05:58 08/15/24 14:53 Albumin 3.7 g/dL (3.2-4.8) Calcium Level 10.5 mg/dL (8.7-10.4) H 11.1 mg/dL (8.7-10.4) H Total Protein 6.8 g/dL (5.7-8.2) LFT Test 08/15/24 05:58 Alanine Aminotransferase (ALT) 14 U/L (7-40) Alkaline Phosphatase 112 U/L (46-116) Aspartate Amino Transferase (AST) 15 U/L (<34) Total Bilirubin 0.5 mg/dL (0.2-1.0) Urinalysis Test 08/10/24 01:25 Urine Color Light-yellow (Yellow) Urine Clarity Clear (Clear) Urine pH 5.5 (5.0-9.0) Urine Specific [place] 1.010 (1.001-1.035) Urine Protein Negative (Negative) Urine Ketones Negative (Negative) Urine Blood Trace /uL (Negative) H Urine Nitrite Negative (Negative) Urine Bilirubin Negative (Negative) Urine Urobilinogen Normal mg/dL (Negative) Urine Leukocyte Esterase Negative /uL (Negative) Urine RBC 4 /hpf (0 - 3) Urine Microscopic WBC 1 /HPF (0-3) Urine Squamous Epithelial Cells Few /hpf (<5) Urine Bacteria None seen /hpf (None Seen) Urine Hyaline Casts Many /lpf (0 - 2) Urine Mucus Few (None Seen) Urine Glucose Normal mg/dL (Normal) Labs and/or images reviewed: Labs reviewed by me, Image(s) reviewed by me Assessment/Plan Assessment/Plan 08/13 taking over the case for Dr. patino . Patient was seen by spinal surgery MRI is done showing fracture at T7-8. There is also stenosis multiple levels moderate to severe L3-L5 and L4-S1. Spinal surgery wants to try conservative measures at this time with PT with brace, muscle relaxants and pain control, and a [address] T-spine. Otherwise spinal surgery signs of. Patient has other issues as well echo was done has not been read in his pending. We will make Cardiology aware. Patient family is aware and concern for volume overload with history of HFrEF. Patient on exam sounds volume overload. Patient is on Lasix IV 40 daily we will increase it to t.i.d.. No labs labs with done today. We will follow up tomorrow 08/14 - patient continues to complain of back pain. We will have certified social workers in health care to help us with getting a TLSO brace. Patient family is very difficult. They have multiple questions. Family wants to speak to spinal surgeon team again. Spine surgeon team has been notified. Spine surgeon team has signed off and plan is on note above from 08/13. Echo has been read and showing EF 50% and aortic sclerosis from aging. No acute or worrisome findings on echo. This a.m. patient appears to be more euvolemic. Creatinine is increasing from 1.3-1.6. We will hold off further diuresis. Had a long discussion with family today over the phone and EMMANUEL sons brother at bedside. Spoke to EMMANUEL adkins son over the phone. Four main topics were discussed: 1. renal function, 2. spinal surgeon team we will contact them again, 3. Heart failure exacerbation resolved and echo finding discussed, 4. Found hypercalcemia with elevated PTH and we will get parathyroid sestamibi scan to expedite workup. There is no urgent indication for IVs alendronate or p.o. bisphosphonates. We will expedite workup and have patient follow up outpatient - update: spinal team will d/w family. tentative plan for TLSO brace, lyrica, optimize health, PT, poor surgical candidate, follow-up outpatient . avoid NSAID/toradol, avoid prednisone/steroids 08/15- patient had a fall overnight this a.m. he is a little fatigued. CT head negative for acute bleed. He also had shoulder pain on the left. We got x-ray left shoulder and left hip both of which are negative for any acute fractures or abnormalities. Patient back pain continues spinal surgery following closely to make sure patient gets TLSO brace. Patient was not able to get sestamibi scan PTH scan nuclear medicine because he could not lay flat. Endocrine has been consulted to evaluate for need for bisphosphonates given the patient's likely has osteoporosis with the unknown length of undiagnosed primary hyperparathyroidism. Endocrine also consulted to help bedside outpatient evaluation for primary hyperparathyroidism. Patient is A&O x3. And has mild dementia. Exam is benign aside from lower back pain and spinal tenderness T7. We are giving 250 cc fluids and we will repeat BNP S creatinine was rising from 1.3-1.6. Son at bedside has already updates family educated, all questions answered. For pain Lyrica and opiates. -plan: If patient is stable vital, patient can DC or weekend if he has (1) TLSO brace, (2) plan with the endocrine regarding bisphosphonate and workup for primary hyper parathyroidism. Patient can take Lyrica and opiates for pain outpatient. And needs close follow up with spinal surgery/endocrine outpatient. Diagnosis: Chronic back pain may due to acute on chronic fracture of vertebral bodies Acute fracture of T7-T8 Chronic T11 fracture Spinal stenosis at lumbar region Abdominal pain Constipation Hypercalcemia Hiatal hernia Acute exacerbation of congestive heart failure HFpEF Gout Hx Afib Hx DVT on Chronic AC (eliquis) hx epilepsy. on phenytoin. Plan: -Continuing current management --Continuing with Lasix.. but increased to tid. - STOP on 08/14 (euvolemic, Cr rise) -Colace p.r.n. for constipation -MRI thoracic showed: Acute fractures of the T7 and T8 vertebral bodies as described above. This is significantly more pronounced at T7. Chronic T11 wedge-shaped compression fracture deformity. Moderate thoracic degenerative disc disease -MRI lumbar showed: Moderate spinal canal stenosis with severe bilateral lateral recess narrowing at L3-L4 at L4-L5. Severe bilateral lateral recess narrowing at L2-L3 . Moderate to severe right-sided neural foramina stenosis at L4-L5 and L5-S1 -Spine surgeon consult. signed off case -Continue pain meds. -Discussed with the patient at bedside for plan of care - continuing home meds allopurinol, Eliquis, - muscle relaxant cyclobenzaprine 10 t.i.d. - we will replace with baclofen as this is causing excessive drowsiness - continue finasteride, folic, midodrine 10 t.i.d., phenytoin 100 b.i.d., Flomax 0.8 q.p.m., - start lyrica 08/14 diet cardiac DVT prophylaxis-ambulatory GI prophylaxis tolerating p.o. Tele Full code Plan discussed with: Patient My Orders Orders - TTIA ASNON MD Procedure Category Date Status Time Pregabalin Capsule PHA 08/15/24 In Process (Lyrica Capsule) 08:[address] 08/15/24 Resulted 10:20 L Shoulder 2+ View XY 08/15/24 Resulted Xray 10:46 L Hip Complete Xray XY 08/15/24 Resulted 10:46 Alendronate Sodium PHA 08/16/24 In Process (Fosamax) 06:00 * Endocrinology CONS 08/15/24 Transmitted Consult 13:16 Date of Service: Aug 15, 2024 Billing Provider: TITA SANON MD Common Visit Codes: [id number] INP/OBS CARE(HIGH) TITA SANON MD Aug 15, 2024 17:03
--- NOTE | 2024-08-15 17:16 | DVHINCON2 ---
Date of service: Aug 15, 2024 History of Present Illness 78yo M w/ hx of Afib, epilepsy, DVTs, HTN who presented to hospital with intermittent back and abdominal pain. Lab evaluation demonstratedWBC 9.0, platelets 188, sodium 141, potassium 3.9, BUN 28, creatinine 1.25, glucose 103, calcium 11.1, lipase 21, lactic acid 1.9, BNP 2043.43, troponin 14. On presentation pt hemodynamically stable satting well on room air. CT ab/pelvis showed fecal retention in colon. MRI spine in 08/11 showed acute T7 and T8 vertebral body fx. Chorn[place] T11 wedge shaped compression fx as well. Spine surgery consulted who is recommending non-operative intervention at this time. In reviewing prior bloodwork it has been seen that patient has hypercalcemia to max Ca 11.1 since at least 2023. PTH 194. Nuclear medicine parathyroid scan attempted today however unable to be completed as patient unable to lie flat. Patient with modestly declining GFR since 01/2024 and uptrending Cr. Past Medical History Problems Medical Problems: (1) Abdominal pain Status: Acute (2) CHF exacerbation Status: Acute (3) Chronic back pain Status: Acute (4) Constipation Status: Acute (5) Hiatal hernia Status: Acute Past Surgical History Past Surgical History Medical Problems: (1) Abdominal pain Status: Acute (2) CHF exacerbation Status: Acute (3) Chronic back pain Status: Acute (4) Constipation Status: Acute (5) Hiatal hernia Status: Acute Family History: Hypertension G8 FATHER Allergies: Coded Allergies: NO KNOWN ALLERGIES (Unverified , 02/18/24) Home Meds Active Scripts Diclofenac Sodium (Topical) (Voltaren Arthritis Pain) 1 % Gel, 1 APPLIC EX Q6HP PRN for 30 Days, #60 GRAMS 0 Refills Prov:VICKIE RIOS NUTRITION COORDINATOR 6/2/25 Lidocaine (LIDODERM 5% TOPICAL PATCH) 1 Patch Ph, 1 PATCH TOP DAILY for 30 Days, #30 PATCH 0 Refills Prov:VICKIE RIOS NUTRITION COORDINATOR 6/2/25 Hydrocodone-Acetaminophen (Hydrocodone Bitartrate/AC 5-325 mg) 1 Tab Tab, 1 TAB PO Q12HP PRN for 2 Days, #4 TAB 0 Refills Prov:VICKIE RIOS NUTRITION COORDINATOR 6/2/25 Allopurinol (Allopurinol) 100 Mg Tab, 100 MG PO DAILY for 30 Days, #30 TAB 3 Refills Prov:NINA BULLARD MD 02/19/24 Prednisone (Prednisone) 20 Mg Tab, 20 MG PO QAM for 5 Days, #10 MG Prov:NINA BULLARD MD 02/19/24 Reported Medications Apixaban Base (ELIQUIS) 5 Mg Tab, 10 MG PO BID for 7 Days, TAB 10MG BID X 7 DAYS THEN 5MG PO BID FOR AT LEAST 6 MONTHS FOR DVT/PE TREATMENT 02/19/24 Metolazone (Metolazone) 10 Mg Tab, 10 MG PO QAM for 30 Days, MG 02/19/24 Furosemide (Furosemide) 40 Mg Tab, 40 MG PO DAILY for 30 Days, MG 02/19/24 Midodrine HCl (Midodrine HCl) 10 Mg Tab, 5 MG PO TIDPRN, TAB 02/19/24 Ezetimibe (Zetia) 10 Mg Tab, 1 TAB PO DAILY, #30 TAB 5 Refills 02/19/24 Tamsulosin Hcl (Tamsulosin Hcl) 0.4 Mg Cap, 0.8 MG PO QAM for 30 Days, MG 02/19/24 Finasteride (Finasteride) 5 Mg Tab, 5 MG PO DAILY for 30 Days, MG 02/19/24 Folic Acid (Folic Acid) 5 Mg Cap, 5 MG PO BID, CAP 02/19/24 Phenytoin Sodium (DILANTIN CAPSULE) 100 Mg Cp, 100 MG PO BID, CAP 02/19/24 Current Medications Current Medications Medications (Trade) Dose Ordered Sig/Charlette Route PRN Reason Start Time Stop Time Status Last Admin Pregabalin (Lyrica Capsule) 150 mg BID PO 08/15/24 08:00 Alendronate Sodium (Fosamax) 10 mg QAM@0600 PO 08/16/24 06:00 Vital Signs Vital Signs Date Time Temp Pulse Resp B/P (MAP) Pulse Ox O2 Delivery O2 Flow Rate FiO2 08/15/24 17:09 96.6 49 21 119/74 (89) 93 96.6 08/15/24 08:20 Room Air* 0 N/A Nasal Cannula* Physical Exam Gen - no acute distress HEENT - no thyromegaly CV - RRR Resp - non labored Psych - appropriate mood and affect Labs/Diagnostic Data Labs Test 08/15/24 14:53 08/15/24 05:58 08/14/24 12:02 08/14/24 06:17 Range/Units Sodium Level 139 136-145 mmol/L Potassium Level 4.2 3.5-5.1 mmol/L Chloride Level 104 98-107 mmol/L Carbon Dioxide Level 30 20-31 mmol/L Anion Gap 5 5-15 Blood Urea Nitrogen 28 H 9-23 mg/dL Creatinine 1.37 H 0.700-1.30 mg/dL Glomerular Filtration Rate Calc 52 >90 mL/min BUN/Creatinine Ratio 20.4 H 10.0-20.0 Serum Glucose 105 74-106 mg/dL Calcium Level 11.1 H 8.7-10.4 mg/dL Total Bilirubin 0.5 0.2-1.0 mg/dL Aspartate Amino Transferase (AST) 15 <34 U/L Alanine Aminotransferase (ALT) 14 7-40 U/L Alkaline Phosphatase 112 46-116 U/L Total Protein 6.8 5.7-8.2 g/dL Albumin 3.7 3.2-4.8 g/dL Parathyroid Hormone (Intact) 194.4 H 18.4-80.1 pg/mL White Blood Count 4.7 4.4-10.8 10^3/uL Red Blood Count 5.41 4.5-5.90 10^6/uL Hemoglobin 15.4 13.5-17.5 g/dL Hematocrit 45.9 41.0-53.0 % Mean Corpuscular Volume 85.0 80.0-100.0 fL Mean Corpuscular Hemoglobin 28.4 28.0-32.0 pg Mean Corpuscular Hemoglobin Concent 33.5 32.0-36.0 g/dL Red Cell Distribution Width 15.9 H 11.8-14.3 % Platelet Count 195 140-450 10^3/uL Mean Platelet Volume 9.3 6.9-10.8 fL Neutrophils (%) (Auto) 52.0 37.0-80.0 % Lymphocytes (%) (Auto) 32.7 10.0-50.0 % Monocytes (%) (Auto) 12.1 H 0.0-12.0 % Eosinophils (%) (Auto) 2.4 0.0-7.0 % Basophils (%) (Auto) 0.8 0.0-2.0 % Neutrophils # (Auto) 2.5 1.6-8.6 10 ^3/uL Lymphocytes # (Auto) 1.5 0.4-5.4 10 ^3/uL Monocytes # (Auto) 0.6 0-1.3 10 ^3/uL Eosinophils # (Auto) 0.1 0-0.8 10 ^3/uL Basophils # (Auto) 0 0-0.2 10 ^3/uL Nucleated Red Blood Cells 0.2 % Test 08/10/24 01:25 08/09/24 15:55 08/09/24 12:38 Range/Units Urine Color Light-yellow Yellow Urine Clarity Clear Clear Urine pH 5.5 5.0-9.0 Urine Specific [place] 1.010 1.001-1.035 Urine Protein Negative Negative Urine Ketones Negative Negative Urine Blood Trace H Negative /uL Urine Nitrite Negative Negative Urine Bilirubin Negative Negative Urine Urobilinogen Normal Negative mg/dL Urine Leukocyte Esterase Negative Negative /uL Urine RBC 4 0 - 3 /hpf Urine Microscopic WBC 1 0-3 /HPF Urine Squamous Epithelial Cells Few <5 /hpf Urine Bacteria None seen None Seen /hpf Urine Hyaline Casts Many 0 - 2 /lpf Urine Mucus Few None Seen Urine Glucose Normal Normal mg/dL Troponin I High Sensitivity 14 </=54 ng/L Lactic Acid Level 1.9 0.4-2.0 mmol/L B-Type Natriuretic Peptide 2043.43 0-100 pg/mL Lipase 26 12-53 U/L Assessment # Primary hyperparathyroidism # Osteoporosis # Acute fracture of T7 ad T8 # Chronic T11 wedge compression deformity # CKD Stage III # Acute on chronic HFrEF # Constipation At least 6mo history of evidence of moderate hypercalcemia. Biochemical w/up on admission demonstrates significantly elevated PTH consistent with PHPT. Has asso ciated end-organ effects specifically osteoporosis (as diagnosed through multiple vertebral fx) and GI distress. Hypercalcemia may be predisposing to declining renal function overtime as well. - No urgent intervention needed at this time - Recommend nuclear medicine parathyroid scan - either inpatient or outpatient - Recommend DEXA scan as outpatient - Recommend 24 hour urine Ca/Cr as outpatient - if maintained off of loop diuretics - Patient meets criteria for surgical intervention of PHPT however given p atient's advanced age risk/benefit discussion should be had with patient after NM parathyroid scan. - Continue alendronate 10mg qd - Encourage mobility to minimize bone resorption - Achieve adequate hydration - will need to balance with avoiding fluid overload state given HF - If surgery not desired in future may consider cinacalcet to decrease any severe hypercalcemia state Follow up with endocrinology as outpatient. Will establish patient in clinic. Clinic phone # [phone]. Plan discussed with: Patient ROGERIO BUTTERFIELD MD Aug 15, 2024 17:16
[2024-08-16] VITALS (9 sets, daily range): BP systolic 101–129; BP diastolic 65–76; PULSE 55–93; RESP 17–19; TEMP 97.7–98.1; O2SAT 92–100
[2024-08-16] MEDS: MORPHINE SULFATE INJ 2 MG/ml SYRG IV PRN (04:40)
--- NOTE | 2024-08-16 04:40 | DVH ---
EXAM: CT HEAD WITHOUT CONTRAST INDICATION: R/O STROKE TECHNIQUE: CT of the head without intravenous contrast. Radiation Dose : 1. Head: CT Dose: CTDI volume is 53.68 mGy. Dose-length product is 1077.07 mGy*cm The dose indicators for CT are the volume Computed Tomography (CT) Dose Index (CTDIvol) and the Dose Length Product (DLP), and are measured in units of mGy and mGy-cm, respectively. These indicators are not patient dose, but values generated from the CT scanner acquisition factors. The report includes radiation exposure data for exposures received during this examination. COMPARISON: CT HEAD WITHOUT CONTRAST on DOS: 08/15/24 FINDINGS: There is no evidence of acute intracranial hemorrhage, extra-axial collection, mass effect, midline s hift, herniation or hydrocephalus. Increased prominence of the ventricles, sulci and cisterns is consistent with atrophic cortical volum e loss. The evans-white differentiation is intact. Moderate diffuse confluent periventricular and subcortical white matter hypoattenuation is nonspecifi c but may be related to small vessel ischemic disease. The visualized paranasal sinuses and mastoid air cells are clear. The surrounding soft tissues and osseous structures are unremarkable. IMPRESSION: 1. No acute intracranial abnormality. 2. Chronic sequelae of microvascular disease and atrophic cortical volume loss. Radiation optimization: All CT scans at this facility use at least one of these dose optimization milana hniques: automated exposure control mA and/or kV adjustment per patient size (includes targeted exam s where dose is matched to clinical indication) or iterative reconstruction.
[2024-08-16] MEDS: ALENDRONATE SODIUM 10 MG TAB PO SCH (06:00)
[2024-08-16 06:28] LABS: Chloride 104 mmol/L (98-107); Potassium 4.2 mmol/L (3.5-5.1); Sodium 139 mmol/L (136-145)
[2024-08-16 06:29] LABS: Anion Gap 6 (5-15); Carbon Dioxide 29 mmol/L (20-31)
[2024-08-16 06:34] LABS: BUN/Creatinine Ratio 17.3 (10.0-20.0); Blood Urea Nitrogen 22 mg/dL (9-23); Glucose 106 mg/dL (74-106)
[2024-08-16 06:52] LABS: Calcium 11.2 mg/dL (8.7-10.4)
[2024-08-16] MEDS: LORazepam 2MG/ML-1ML VIAL IV ONE (14:54)
--- NOTE | 2024-08-16 16:33 | DVH ---
MRI BRAIN HEAD WO CONTRAST INDICATION: Right side weakness, r/o CVA EXAM DATE: 08/16/2024 03:04 PM COMPARISON: None PROCEDURE: Using a 1.5 Nerissa scanner, multisequence multiplanar imaging of the brain was obtained. FINDINGS: The brainshows normal morphology and signal characteristics. No abnormal T2 hyperintensity, diffusion restriction, or susceptibility hypointensity is present. The ventricles are normal in size . The midline structures are intact. The major intracranial flow voids are present. The aerated space s are normal. The orbital contents and extracranial soft tissues appear normal. IMPRESSION: No acute abnormal MRI findings of the brain.
[2024-08-16] MEDS: ONDANSETRON HCL 4 MG/2 ML VIAL IV PRN (22:58)
--- NOTE | 2024-08-16 23:34 | DVHPN2 ---
Subjective The patient is seen and examined at bedside. The patient complained of pain in his abdomen and back. Reviewed: Care Plan, H&P, Labs, Medications, Previous Orders, Radiology Changes from previous H/P or p: No Changes General: Per HPI Eyes: No Pain, No Vision change, No Conjunctivae inflammation, No Eyelid inflammation, No Other, No Redness ENT: No Ear pain, No Ear discharge, No Nose pain, No Nose discharge, No Nose congestion, No Mouth pain, No Mouth swelling, No Throat pain, No Throat swelling, No Other Cardiovascular: No Chest Pain, No Palpitations, No Orthopnea, No Paroxysmal Noc. Dyspnea, No Edema, No Lt Headedness, No Other Respiratory: No Cough, No Dry; Shortness of breath; No SOB with excertion, No Wheezing, No Hemoptysis, No Pleuritic Pain, No Sputum, No Other Gastrointestinal: Nausea, Vomiting, Abdominal Pain; No Diarrhea, No Constipation, No Melena, No Hematochezia, No Other Genitourinary: No Dysuria, No Frequency, No Incontinence, No Hematuria, No Retention, No Other Musculoskeletal: No other, No neck pain, No shoulder pain, No arm pain; back pain; No hand pain, No leg pain, No foot pain Skin: No Rash, No Lesions, No Jaundice, No Bruising, No Other Objective Vitals Vital Signs Date Time Temp Pulse Resp B/P (MAP) Pulse Ox O2 Delivery O2 Flow Rate FiO2 08/16/24 20:58 97.7 55 18 118/70 (86) 99 97.7 08/16/24 08:10 Room Air* 0 N/A Nasal Cannula* Intake/Output Intake and Output 08/16/24 07:00 Intake Total 1500 ml Balance 1500 ml Intake Oral 1250 ml IV Total 250 ml # Voids 3 General Appearance: Alert, No acute distress HEENT: Atraumatic, PERRLA, EOMI, Mucous membr. moist/pink Neck: Supple Lungs: Clear to auscultation, Normal air movement Cardiovascular: Regular rate, Normal S1, Normal S2, No murmurs, Gallops, Rubs Abdomen: Normal bowel sounds, Soft, Other (Tenderness all four quadrants) Neuro: Cranial nerves 3-12 NL Psych/Mental Status: Mental status NL Medications Current Medications Medications Dose Ordered Sig/Charlette Route Start Time Stop Time Status Last Admin Dose Admin Folic Acid 1 mg DAILY PO 08/10/24 10:00 08/16/24 09:48 1 MG Phenytoin Sodium 100 mg Q12HR PO 08/10/24 10:00 08/16/24 22:00 100 MG Apixaban 5 mg BID PO 08/10/24 10:00 08/16/24 21:57 5 MG Sodium Chloride 10 ml Q8HR IV 08/10/24 06:00 08/16/24 21:56 10 ML Acetaminophen/ Hydrocodone Bitart 1 tab Q4HP PRN PO 08/09/24 22:15 08/16/24 22:41 1 TAB Ondansetron HCl 4 mg Q4HP PRN IV 08/09/24 22:15 08/16/24 22:58 4 MG Docusate Sodium 100 mg BIDPRN PRN PO 08/09/24 22:15 08/12/24 12:52 100 MG Acetaminophen 650 mg Q6HP PRN PO 08/09/24 22:15 Nitroglycerin 0.4 mg Q5MINP PRN SL 08/09/24 23:30 Morphine Sulfate 2 mg Q30M PRN IV 08/09/24 23:30 08/16/24 04:40 2 MG Allopurinol 100 mg DAILY PO 08/11/24 10:00 08/16/24 09:49 100 MG Finasteride 5 mg DAILY PO 08/11/24 10:00 08/16/24 09:48 5 MG Midodrine 10 mg TID PO 08/10/24 22:00 08/16/24 13:43 10 MG Tamsulosin HCl 0.8 mg QPM PO 08/11/24 18:00 08/15/24 18:08 0.8 MG Baclofen 10 mg BID PO 08/13/24 22:00 08/16/24 21:58 10 MG Pregabalin 150 mg BID PO 08/15/24 08:00 08/16/24 21:57 150 MG Alendronate Sodium 10 mg QAM@0600 PO 08/16/24 06:00 Laboratory Results Laboratory Tests 08/14/24 06:17 08/16/24 04:13 Chemistry Test 08/16/24 04:13 Calcium Level 11.2 mg/dL (8.7-10.4) H Urinalysis Test 08/10/24 01:25 Urine Color Light-yellow (Yellow) Urine Clarity Clear (Clear) Urine pH 5.5 (5.0-9.0) Urine Specific [place] 1.010 (1.001-1.035) Urine Protein Negative (Negative) Urine Ketones Negative (Negative) Urine Blood Trace /uL (Negative) H Urine Nitrite Negative (Negative) Urine Bilirubin Negative (Negative) Urine Urobilinogen Normal mg/dL (Negative) Urine Leukocyte Esterase Negative /uL (Negative) Urine RBC 4 /hpf (0 - 3) Urine Microscopic WBC 1 /HPF (0-3) Urine Squamous Epithelial Cells Few /hpf (<5) Urine Bacteria None seen /hpf (None Seen) Urine Hyaline Casts Many /lpf (0 - 2) Urine Mucus Few (None Seen) Urine Glucose Normal mg/dL (Normal) Labs and/or images reviewed: Labs reviewed by me Assessment/Plan Assessment/Plan Chronic back pain may due to acute on chronic fracture of vertebral bodies Acute fracture of T7-T8 Chronic T11 fracture Spinal stenosis at lumbar region Abdominal pain Constipation Hypercalcemia Hiatal hernia Acute exacerbation of congestive heart failure Continuing current management Continuing with Lasix. Colace p.r.n. for constipation MRI thoracic showed: Acute fractures of the T7 and T8 vertebral bodies as described above. This is significantly more pronounced at T7. Chronic T11 wedge-shaped compression fracture deformity. Moderate thoracic degenerative disc disease MRI lumbar showed: Moderate spinal canal stenosis with severe bilateral lateral recess narrowing at L3-L4 at L4-L5. Severe bilateral lateral recess narrowing at L2-L3 . Moderate to severe right-sided neural foramina stenosis at L4-L5 and L5-S1 Spine surgeon consult appreciated. Continuing pain medication and Lyrica. Continue pain meds. Continuing Physical therapy Discussed with the patient at bedside for plan of care This medical document was created using an electronic medical record system with [employer] direct computerized dictation system. Although this document has been carefully reviewed, there may still be some phonetic and typographical errors. These areas are purely typographical due to imperfections of the software programs, and do not reflect any compromise in the patient's medical care. Plan discussed with: Patient My Orders Orders - KING INFANTE MD Procedure Category Date Status Time Apply Z-Guard ROBE 08/16/24 In Process 12:25 * Wound Consult CONS 08/16/24 Transmitted Date of Service: Aug 16, 2024 Billing Provider: KING INFANTE MD Common Visit Codes: [id number] INP/OBS CARE(HIGH) KING INFANTE MD Aug 16, 2024 23:34
[2024-08-17] VITALS (8 sets, daily range): BP systolic 105–145; BP diastolic 45–67; PULSE 58–76; RESP 16–20; TEMP 97.7–98.4; O2SAT 9–99
--- NOTE | 2024-08-17 14:16 | DVHPN2 ---
Subjective The patient is seen and examined at bedside. The patient complained of pain in his abdomen and back. Patient's son at bedside. Complain that Ativan and Lyrica make him confused, weak, unable to move his extremity. Reviewed: Care Plan, H&P, Labs, Medications, Previous Orders, Radiology Changes from previous H/P or p: No Changes General: Per HPI Eyes: No Pain, No Vision change, No Conjunctivae inflammation, No Eyelid inflammation, No Other, No Redness ENT: No Ear pain, No Ear discharge, No Nose pain, No Nose discharge, No Nose congestion, No Mouth pain, No Mouth swelling, No Throat pain, No Throat swelling, No Other Cardiovascular: No Chest Pain, No Palpitations, No Orthopnea, No Paroxysmal Noc. Dyspnea, No Edema, No Lt Headedness, No Other Respiratory: No Cough, No Dry; Shortness of breath; No SOB with excertion, No Wheezing, No Hemoptysis, No Pleuritic Pain, No Sputum, No Other Gastrointestinal: Nausea, Vomiting, Abdominal Pain; No Diarrhea, No Constipation, No Melena, No Hematochezia, No Other Genitourinary: No Dysuria, No Frequency, No Incontinence, No Hematuria, No Retention, No Other Musculoskeletal: No other, No neck pain, No shoulder pain, No arm pain; back pain; No hand pain, No leg pain, No foot pain Skin: No Rash, No Lesions, No Jaundice, No Bruising, No Other Objective Vitals Vital Signs Date Time Temp Pulse Resp B/P (MAP) Pulse Ox O2 Delivery O2 Flow Rate FiO2 08/17/24 13:00 97.7 60 16 125/45 (71) 99 97.7 08/17/24 08:05 Nasal Cannula* 3 32 Intake/Output Intake and Output 08/17/24 07:00 Intake Total 660 ml Balance 660 ml Intake Oral 660 ml # Voids 2 General Appearance: Alert, No acute distress HEENT: Atraumatic, PERRLA, EOMI, Mucous membr. moist/pink Neck: Supple Lungs: Clear to auscultation, Normal air movement Cardiovascular: Regular rate, Normal S1, Normal S2, No murmurs, Gallops, Rubs Abdomen: Normal bowel sounds, Soft, Other (Tenderness all four quadrants) Neuro: Cranial nerves 3-12 NL Psych/Mental Status: Mental status NL Medications Current Medications Medications Dose Ordered Sig/Charlette Route Start Time Stop Time Status Last Admin Dose Admin Folic Acid 1 mg DAILY PO 08/10/24 10:00 08/17/24 09:48 1 MG Phenytoin Sodium 100 mg Q12HR PO 08/10/24 10:00 08/17/24 09:48 100 MG Apixaban 5 mg BID PO 08/10/24 10:00 08/17/24 09:47 5 MG Sodium Chloride 10 ml Q8HR IV 08/10/24 06:00 08/17/24 06:00 10 ML Acetaminophen/ Hydrocodone Bitart 1 tab Q4HP PRN PO 08/09/24 22:15 08/16/24 22:41 1 TAB Ondansetron HCl 4 mg Q4HP PRN IV 08/09/24 22:15 08/16/24 22:58 4 MG Docusate Sodium 100 mg BIDPRN PRN PO 08/09/24 22:15 08/12/24 12:52 100 MG Acetaminophen 650 mg Q6HP PRN PO 08/09/24 22:15 Nitroglycerin 0.4 mg Q5MINP PRN SL 08/09/24 23:30 Morphine Sulfate 2 mg Q30M PRN IV 08/09/24 23:30 08/16/24 04:40 2 MG Allopurinol 100 mg DAILY PO 08/11/24 10:00 08/17/24 09:47 100 MG Finasteride 5 mg DAILY PO 08/11/24 10:00 08/17/24 09:47 5 MG Midodrine 10 mg TID PO 08/10/24 22:00 08/16/24 13:43 10 MG Tamsulosin HCl 0.8 mg QPM PO 08/11/24 18:00 08/15/24 18:08 0.8 MG Baclofen 10 mg BID PO 08/13/24 22:00 08/16/24 21:58 10 MG Pregabalin 150 mg BID PO 08/15/24 08:00 08/16/24 21:57 150 MG Alendronate Sodium 10 mg QAM@0600 PO 08/16/24 06:00 Laboratory Results Laboratory Tests 08/14/24 06:17 08/16/24 04:13 Urinalysis Test 08/10/24 01:25 Urine Color Light-yellow (Yellow) Urine Clarity Clear (Clear) Urine pH 5.5 (5.0-9.0) Urine Specific [place] 1.010 (1.001-1.035) Urine Protein Negative (Negative) Urine Ketones Negative (Negative) Urine Blood Trace /uL (Negative) H Urine Nitrite Negative (Negative) Urine Bilirubin Negative (Negative) Urine Urobilinogen Normal mg/dL (Negative) Urine Leukocyte Esterase Negative /uL (Negative) Urine RBC 4 /hpf (0 - 3) Urine Microscopic WBC 1 /HPF (0-3) Urine Squamous Epithelial Cells Few /hpf (<5) Urine Bacteria None seen /hpf (None Seen) Urine Hyaline Casts Many /lpf (0 - 2) Urine Mucus Few (None Seen) Urine Glucose Normal mg/dL (Normal) Labs and/or images reviewed: Labs reviewed by me Assessment/Plan Assessment/Plan Chronic back pain may due to acute on chronic fracture of vertebral bodies Acute fracture of T7-T8 Chronic T11 fracture Spinal stenosis at lumbar region Abdominal pain Constipation Hypercalcemia Hiatal hernia Acute exacerbation of congestive heart failure Continuing current management Continuing with Lasix. Colace p.r.n. for constipation MRI thoracic showed: Acute fractures of the T7 and T8 vertebral bodies as described above. This is significantly more pronounced at T7. Chronic T11 wedge-shaped compression fracture deformity. Moderate thoracic degenerative disc disease MRI lumbar showed: Moderate spinal canal stenosis with severe bilateral lateral recess narrowing at L3-L4 at L4-L5. Severe bilateral lateral recess narrowing at L2-L3 . Moderate to severe right-sided neural foramina stenosis at L4-L5 and L5-S1 Spine surgeon consult appreciated. Recommend Lyrica. Continue pain meds. Discussed with son and the patient at bedside for plan of care. Per patient's son request I stopped the Lyrica. But I explained to them that Lyrica help for the neuropathy. Son still adamant that is need to be discontinuing. So we will discontinuing any benzodiazepine or any Lyrica or medication for neuropathy. Continuing physical therapy This medical document was created using an electronic medical record system with [employer] direct computerized dictation system. Although this document has been carefully reviewed, there may still be some phonetic and typographical errors. These areas are purely typographical due to imperfections of the software programs, and do not reflect any compromise in the patient's medical care. Plan discussed with: Patient, Son My Orders Orders - KING INFANTE MD Procedure Category Date Status Time Apply Z-Guard ROBE 08/16/24 In Process 12:25 * Wound Consult CONS 08/16/24 Transmitted Date of Service: Aug 17, 2024 Billing Provider: KING INFANTE MD Common Visit Codes: [id number] INP/OBS CARE(HIGH) KING INFANTE MD Aug 17, 2024 14:16
[2024-08-18] VITALS (7 sets, daily range): BP systolic 100–129; BP diastolic 44–80; PULSE 60–70; RESP 15–18; TEMP 97.7–99.1; O2SAT 94–99
--- NOTE | 2024-08-18 11:41 | DVH ---
EXAM: XY R HIP 1V XRAY CLINICAL INDICATION: R hip pain TECHNIQUE: XY R HIP 1V XRAY Comparison: None FINDINGS/IMPRESSION: There is no evidence of acute fracture or dislocation. Moderate right hip osteoarthritis. The alignment is anatomical. There is no radiopaque foreign body.
--- NOTE | 2024-08-18 11:41 | DVH ---
EXAM: XY R SHOULDER 1V XRAY CLINICAL INDICATION: r shoulder pain TECHNIQUE: XY R SHOULDER 1V XRAY Comparison: XY L SHOULDER 2+ VIEW XRAY on DOS: 08/15/24 FINDINGS/IMPRESSION: There is no evidence of acute fracture or dislocation. Moderate right glenohumeral osteoarthritis. The alignment is anatomical. There is no radiopaque foreign body.
[2024-08-18 14:04] LABS: Chloride 105 mmol/L (98-107); Potassium 4.3 mmol/L (3.5-5.1); Sodium 141 mmol/L (136-145)
[2024-08-18 14:05] LABS: Anion Gap 7 (5-15); Carbon Dioxide 29 mmol/L (20-31)
[2024-08-18 14:07] LABS: Calcium 10.8 mg/dL (8.7-10.4)
[2024-08-18 14:10] LABS: BUN/Creatinine Ratio 19.8 (10.0-20.0); Blood Urea Nitrogen 20 mg/dL (9-23); Glucose 105 mg/dL (74-106)
[2024-08-18 14:11] LABS: Magnesium 1.9 mg/dL (1.6-2.6)
[2024-08-18 14:12] LABS: Albumin 3.4 g/dL (3.2-4.8)
[2024-08-18 14:13] LABS: Phosphorus 2.3 mg/dL (2.4-5.1)
--- NOTE | 2024-08-18 14:20 | DVHPN2 ---
Progress Note - Dictate Date Seen: Aug 18, 2024 Medical Necessity Reason Pt with a Central, PICC or Fol: No Subjective Resident seen and interviewed patient. vital signs Vital Sign Date Time Temp Pulse Resp B/P (MAP) Pulse Ox O2 Delivery O2 Flow Rate FiO2 08/18/24 09:00 97.7 66 16 103/80 (88) 97 97.7 08/18/24 08:00 Nasal Cannula* 2 28 Total Intake and Output 08/17/24 08/17/24 08/18/24 15:00 23:00 07:00 Intake Total 225 ml 380 ml Balance 225 ml 380 ml medications Current Medications Medications Dose Ordered Sig/Charlette Route Start Time Stop Time Status Last Admin Dose Admin Folic Acid 1 mg DAILY PO 08/10/24 10:00 08/18/24 10:33 1 MG Phenytoin Sodium 100 mg Q12HR PO 08/10/24 10:00 08/18/24 10:33 100 MG Apixaban 5 mg BID PO 08/10/24 10:00 08/18/24 10:33 5 MG Sodium Chloride 10 ml Q8HR IV 08/10/24 06:00 08/18/24 14:05 10 ML Acetaminophen/ Hydrocodone Bitart 1 tab Q4HP PRN PO 08/09/24 22:15 08/18/24 10:32 1 TAB Ondansetron HCl 4 mg Q4HP PRN IV 08/09/24 22:15 08/16/24 22:58 4 MG Docusate Sodium 100 mg BIDPRN PRN PO 08/09/24 22:15 08/12/24 12:52 100 MG Acetaminophen 650 mg Q6HP PRN PO 08/09/24 22:15 Nitroglycerin 0.4 mg Q5MINP PRN SL 08/09/24 23:30 Morphine Sulfate 2 mg Q30M PRN IV 08/09/24 23:30 08/16/24 04:40 2 MG Allopurinol 100 mg DAILY PO 08/11/24 10:00 08/18/24 10:33 100 MG Finasteride 5 mg DAILY PO 08/11/24 10:00 08/18/24 10:32 5 MG Midodrine 10 mg TID PO 08/10/24 22:00 08/18/24 06:03 10 MG Tamsulosin HCl 0.8 mg QPM PO 08/11/24 18:00 08/17/24 18:14 0.8 MG Baclofen 10 mg BID PO 08/13/24 22:00 08/16/24 21:58 10 MG Alendronate Sodium 10 mg QAM@0600 PO 08/16/24 06:00 laboratory and microbiology Laboratory Tests 08/18/24 13:10 08/14/24 06:17 Test 08/18/24 13:10 Range/Units Serum Glucose 105 74-106 mg/dL Assessment/Plan # Primary hyperparathyroidism # Osteoporosis # Acute fracture of T7 ad T8 # Chronic T11 wedge compression deformity # CKD Stage III # Acute on chronic HFrEF # Constipation At least 6mo history of evidence of moderate hypercalcemia. Biochemical w/up on admission demonstrates significantly elevated PTH consistent with PHPT. Has associated end-organ effects specifically osteoporosis (as diagnosed through multiple vertebral fx) and GI distress. Hypercalcemia may be predisposing to declining renal function overtime as well. - No urgent intervention needed at this time - Recommend nuclear medicine parathyroid scan as outpatient once patient able to tolerate - Recommend DEXA scan as outpatient - Recommend 24 hour urine Ca/Cr as outpatient - if maintained off of loop diuretics - Patient meets criteria for surgical intervention of PHPT however given patient's advanced age risk/benefit discussion should be had with patient after NM parathyroid scan. - Continue alendronate 10mg qd - Encourage mobility to minimize bone resorption - Achieve adequate hydration - will need to balance with avoiding fluid overload state given HF - If surgery not desired in future may consider cinacalcet to decrease any severe hypercalcemia state Follow up with endocrinology as outpatient. Will establish patient in clinic. Clinic phone # [phone]. Dietary Evaluation Review Recommendations by RD: Dietary education by RD Comments: 1) Initiate MVI @ 1 tb qd 2) Encourage optimal PO intake 3) Refer to outpatient RD for weight management 4) Follow-up with orthopedic surgeon, cardiology, and nephrology 5) Continue to monitor I&O, labs, and skin integrity Expected Outcomes/Goals: 1) appetite and labs to improve 2) wound to improve 3) gradual wt loss 4) f/u in 3-5 days Plan discussed with: Patient ROGERIO BUTTERFIELD MD Aug 18, 2024 14:20
--- NOTE | 2024-08-18 15:08 | DVHPN2 ---
Consult Progress Note Date Seen: Aug 18, 2024 Subjective Other Systems: 78-year-old male patient with past medical history of congestive heart failure, multiple DVTs, BPH, AFib, epilepsy, CKD stage 3, obesity, gout presented with complaints of back pain associated with nausea and vomiting and abdominal pain. Endocrine was consulted because of hypercalcemia and elevated PTH. He is alert and oriented, speaks Sami, mentioning of back pain. Patient denied any history of kidney stones, mood issues. CT scan of the abdomen revealed fecal retention in the colon consistent with constipation. He is denying any complaints of active seizures, headache, dizziness, chest pain, shortness of breath. Objective vital signs Vital Sign Date Time Temp Pulse Resp B/P (MAP) Pulse Ox O2 Delivery O2 Flow Rate FiO2 08/18/24 09:00 97.7 66 16 103/80 (88) 97 97.7 08/18/24 08:00 Nasal Cannula* 2 28 Total Intake and Output 08/17/24 08/17/24 08/18/24 15:00 23:00 07:00 Intake Total 225 ml 380 ml Balance 225 ml 380 ml medications Current Medications Medications Dose Ordered Sig/Charlette Route Start Time Stop Time Status Last Admin Dose Admin Folic Acid 1 mg DAILY PO 08/10/24 10:00 08/18/24 10:33 1 MG Phenytoin Sodium 100 mg Q12HR PO 08/10/24 10:00 08/18/24 10:33 100 MG Apixaban 5 mg BID PO 08/10/24 10:00 08/18/24 10:33 5 MG Sodium Chloride 10 ml Q8HR IV 08/10/24 06:00 08/18/24 14:05 10 ML Acetaminophen/ Hydrocodone Bitart 1 tab Q4HP PRN PO 08/09/24 22:15 08/18/24 10:32 1 TAB Ondansetron HCl 4 mg Q4HP PRN IV 08/09/24 22:15 08/16/24 22:58 4 MG Docusate Sodium 100 mg BIDPRN PRN PO 08/09/24 22:15 08/12/24 12:52 100 MG Acetaminophen 650 mg Q6HP PRN PO 08/09/24 22:15 Nitroglycerin 0.4 mg Q5MINP PRN SL 08/09/24 23:30 Morphine Sulfate 2 mg Q30M PRN IV 08/09/24 23:30 08/16/24 04:40 2 MG Allopurinol 100 mg DAILY PO 08/11/24 10:00 08/18/24 10:33 100 MG Finasteride 5 mg DAILY PO 08/11/24 10:00 08/18/24 10:32 5 MG Midodrine 10 mg TID PO 08/10/24 22:00 08/18/24 06:03 10 MG Tamsulosin HCl 0.8 mg QPM PO 08/11/24 18:00 08/17/24 18:14 0.8 MG Baclofen 10 mg BID PO 08/13/24 22:00 08/16/24 21:58 10 MG Alendronate Sodium 10 mg QAM@0600 PO 08/16/24 06:00 Examination: GENERAL:Normal, HEENT:Normal, LUNGS:Normal, CVS:Normal, ABDOMEN:Normal, MSK:Normal, SKIN:Normal laboratory and microbiology Laboratory Tests 08/18/24 13:10 08/14/24 06:17 Test 08/18/24 13:10 Range/Units Serum Glucose 105 74-106 mg/dL Problem List/Assessment/Plan Problem List/Assessment/Plan Assessment/plan # Primary hyperparathyroidism with end organ effects -Mild Elevated corrected calcium 11.3 mg/dL with elevated PTH (194.4) -Has associated osteoporosis and GI distress. -Possible contribution to CKD due to hyperparathyroidism. # Hypercalcemia with constipation and osteoporosis, acute and chronic vertebral Fractures -eGFR today is 76 -phosphate is mildly decreased ( 2.3) -Normal Magnesium # Osteoporosis # Acute fracture of T7 ad T8 # Chronic T11 wedge compression deformity # DAVID on CKD Stage II # Acute on chronic HFrEF # Constipation # BPH # A-fib Plan -no urgent intervention required at this time -continue alendronate 10 mg daily for osteoporosis -Patient qualifies for surgery for hyperparathyroidism based on indications, considering patient's age has a risk factors including multiple co-morbidities, evaluation can be done as an outpatient for need for surgery. -Outpatient nuclear medicine parathyroid scan -Outpatient DEXA scan, 24 hour urinary calcium/creatinine ratio -Adequate hydration to prevent complication of hyperparathyroidism including kidney stones and early Mobilization to minimize bone resorption -If hypercalcemia persists, and patient does not decide for surgery, may consider Cinacalcet. -Patient needs to follow up with outpatient with insurance customer service specialist Case discussion with Dr. Deshpande Plan discussed with: Patient, Other Dietary Evaluation Review Recommendations by RD: Dietary education by RD Comments: 1) Initiate MVI @ 1 tb qd 2) Encourage optimal PO intake 3) Refer to outpatient RD for weight management 4) Follow-up with orthopedic surgeon, cardiology, and nephrology 5) Continue to monitor I&O, labs, and skin integrity Expected Outcomes/Goals: 1) appetite and labs to improve 2) wound to improve 3) gradual wt loss 4) f/u in 3-5 days ANALISA ANN RESIDENT Aug 18, 2024 15:08
[2024-08-18] MEDS ORDERED: PREG50CA PO ×2 (15:28)
[2024-08-18] MEDS ORDERED: BACL10TA PO (15:30)
[2024-08-18] MEDS ORDERED: ALEN70TA74 PO (15:30)
[2024-08-18] MEDS ORDERED: FURO40TA4 PO (15:30)
[2024-08-18] MEDS ORDERED: HYDR-4902 PO (15:31)
--- NOTE | 2024-08-18 15:36 | DVHDS2 ---
Discharge Summary Date of Admission Aug 09, 2024 at 23:27 Date of Discharge: Aug 18, 2024 Labs/Diagnostic Data: Laboratory Results Test 08/18/24 13:10 08/15/24 05:58 08/14/24 12:02 08/14/24 06:17 Sodium Level 141 mmol/L (136-145) Potassium Level 4.3 mmol/L (3.5-5.1) Chloride Level 105 mmol/L (98-107) Carbon Dioxide Level 29 mmol/L (20-31) Anion Gap 7 (5-15) Blood Urea Nitrogen 20 mg/dL (9-23) Creatinine 1.01 mg/dL (0.700-1.30) Glomerular Filtration Rate Calc 76 mL/min (>90) BUN/Creatinine Ratio 19.8 (10.0-20.0) Serum Glucose 105 mg/dL (74-106) Calcium Level 10.8 mg/dL (8.7-10.4) Phosphorus Level 2.3 mg/dL (2.4-5.1) Magnesium Level 1.9 mg/dL (1.6-2.6) Albumin 3.4 g/dL (3.2-4.8) Vitamin D 25-Hydroxy 64.8 ng/mL (30.0-100) Total Bilirubin 0.5 mg/dL (0.2-1.0) Aspartate Amino Transferase (AST) 15 U/L (<34) Alanine Aminotransferase (ALT) 14 U/L (7-40) Alkaline Phosphatase 112 U/L (46-116) Total Protein 6.8 g/dL (5.7-8.2) Parathyroid Hormone (Intact) 194.4 pg/mL (18.4-80.1) White Blood Count 4.7 10^3/uL (4.4-10.8) Red Blood Count 5.41 10^6/uL (4.5-5.90) Hemoglobin 15.4 g/dL (13.5-17.5) Hematocrit 45.9 % (41.0-53.0) Mean Corpuscular Volume 85.0 fL (80.0-100.0) Mean Corpuscular Hemoglobin 28.4 pg (28.0-32.0) Mean Corpuscular Hemoglobin Concent 33.5 g/dL (32.0-36.0) Red Cell Distribution Width 15.9 % (11.8-14.3) Platelet Count 195 10^3/uL (140-450) Mean Platelet Volume 9.3 fL (6.9-10.8) Neutrophils (%) (Auto) 52.0 % (37.0-80.0) Lymphocytes (%) (Auto) 32.7 % (10.0-50.0) Monocytes (%) (Auto) 12.1 % (0.0-12.0) Eosinophils (%) (Auto) 2.4 % (0.0-7.0) Basophils (%) (Auto) 0.8 % (0.0-2.0) Neutrophils # (Auto) 2.5 10 ^3/uL (1.6-8.6) Lymphocytes # (Auto) 1.5 10 ^3/uL (0.4-5.4) Monocytes # (Auto) 0.6 10 ^3/uL (0-1.3) Eosinophils # (Auto) 0.1 10 ^3/uL (0-0.8) Basophils # (Auto) 0 10 ^3/uL (0-0.2) Nucleated Red Blood Cells 0.2 % Test 08/10/24 01:25 08/09/24 15:55 08/09/24 12:38 Urine Color Light-yellow (Yellow) Urine Clarity Clear (Clear) Urine pH 5.5 (5.0-9.0) Urine Specific [place] 1.010 (1.001-1.035) Urine Protein Negative (Negative) Urine Ketones Negative (Negative) Urine Blood Trace /uL (Negative) Urine Nitrite Negative (Negative) Urine Bilirubin Negative (Negative) Urine Urobilinogen Normal mg/dL (Negative) Urine Leukocyte Esterase Negative /uL (Negative) Urine RBC 4 /hpf (0 - 3) Urine Microscopic WBC 1 /HPF (0-3) Urine Squamous Epithelial Cells Few /hpf (<5) Urine Bacteria None seen /hpf (None Seen) Urine Hyaline Casts Many /lpf (0 - 2) Urine Mucus Few (None Seen) Urine Glucose Normal mg/dL (Normal) Troponin I High Sensitivity 14 ng/L (</=54) Lactic Acid Level 1.9 mmol/L (0.4-2.0) B-Type Natriuretic Peptide 2043.43 pg/mL (0-100) Lipase 26 U/L (12-53) Other Laboratory Tests 6/30/25 13:10 08/14/24 06:17 Brief Hx & Hospital Course: History of Present Illness Patient is a 40-year-old female with a past medical history of chronic kidney disease, hypertension, breast cancer s/p bilateral mastectomy, anemia likely due to chronic kidney disease, major depressive disorder, dyslipidemia, insulin- dependent type 2 diabetes mellitus, generalized anxiety disorder presented to the ED with a chief complaint of chest pain. Patient reported that she was apparently well in the evening and when she woke up after taking a nap around 5:00 p.m. reported to have sudden onset left-sided chest pain which was nonradiating and severe in intensity, associated with nausea and few episodes of vomiting, no blood in vomitus, following which she called the EMS and she was given aspirin EN route with the EMS reported of very mild improvement. Patient also reported feeling dizzy, before she took a nap she took alprazolam only 1 mg tablet because of her anxiety. Initial ECG in the ER showed sinus tachycardia without any significant ST or T-wave changes. Patient reported that she was in the hospital last week and was discharged only 2 days ago at home she felt lethargic and reported chest pain just started today. She denied any cough, fever, chills, dysuria, abdominal pain. Summary: 08/13 taking over the case for Dr. patino . Patient was seen by spinal surgery MRI is done showing fracture at T7-8. There is also stenosis multiple levels moderate to severe L3-L5 and L4-S1. Spinal surgery wants to try conservative measures at this time with PT with brace, muscle relaxants and pain control, and a [address] T-spine. Otherwise spinal surgery signs of. Patient has other issues as well echo was done has not been read in his pending. We will make Cardiology aware. Patient family is aware and concern for volume overload with history of HFrEF. Patient on exam sounds volume overload. Patient is on Lasix IV 40 daily we will increase it to t.i.d.. No labs labs with done today. We will follow up tomorrow 08/14 - patient continues to complain of back pain. We will have social work program coordinator to help us with getting a TLSO brace. Patient family is very difficult. They have multiple questions. Family wants to speak to spinal surgeon team again. Spine surgeon team has been notified. Spine surgeon team has signed off and plan is on note above from 08/13. Echo has been read and showing EF 50% and aortic sclerosis from aging. No acute or worrisome findings on echo. This a.m. patient appears to be more euvolemic. Creatinine is increasing from 1.3-1.6. We will hold off further diuresis. Had a long discussion with family today over the phone and EMMANUEL sons brother at bedside. Spoke to EMMANUEL adkins son over the phone. Four main topics were discussed: 1. renal function, 2. spinal surgeon team we will contact them again, 3. Heart failure exacerbation resolved and echo finding discussed, 4. Found hypercalcemia with elevated PTH and we will get parathyroid sestamibi scan to expedite workup. There is no urgent indication for IVs alendronate or p.o. bisphosphonates. We will expedite workup and have patient follow up outpatient - update: spinal team will d/w family. tentative plan for TLSO brace, lyrica, [facility], PT, poor surgical candidate, follow-up outpatient . avoid NSAID/toradol, avoid prednisone/steroids 08/15- patient had a fall overnight this a.m. he is a little fatigued. CT head negative for acute bleed. He also had shoulder pain on the left. We got x-ray left shoulder and left hip both of which are negative for any acute fractures or abnormalities. Patient back pain continues spinal surgery following closely to make sure patient gets TLSO brace. Patient was not able to get sestamibi scan PTH scan nuclear medicine because he could not lay flat. Endocrine has been consulted to evaluate for need for bisphosphonates given the patient's likely has osteoporosis with the unknown length of undiagnosed primary hyperparathyroidism. Endocrine also consulted to help bedside outpatient evaluation for primary hyperparathyroidism. Patient is A&O x3. And has mild dementia. Exam is benign aside from lower back pain and spinal tenderness T7. We are giving 250 cc fluids and we will repeat BNP S creatinine was rising from 1.3-1.6. Son at bedside has already updates family educated, all questions answered. For pain Lyrica and opiates. -plan: If patient is stable vital, patient can DC or weekend if he has (1) TLSO brace, (2) plan with the endocrine regarding bisphosphonate and workup for primary hyper parathyroidism. Patient can take Lyrica and opiates for pain outpatient. And needs close follow up with spinal surgery/endocrine outpatient. 08/16- 08/17- no significant changes over weekend. Patient was not discharged. Patient has been becoming more lethargic. Son has decided to hold off Lyrica and baclofen over weekend. Endocrine has seen as has recommended outpatient follow up for likely primary hyperparathyroidism. 08/18- patient's son is again very upset and believes cares and adequate. Patient's son also complaining that patient is been more sleepy lethargic. On assessment patient is awake alert A&O times 3-4. given patient's age, fragility status, multiple comorbidities, significant advanced spinal disease and complications during this visit, patient prognosis is guarded and is a poor candidate. we have developed an outpatient plan with endocrinology and spinal surgery. Labs are stable and vitals are stable. Patient is tolerating p.o., ambulating. PT has evaluated the patient. Patient is ready for discharge as per plan below. Discharge diagnosis: Chronic back pain may due to acute on chronic fracture of vertebral bodies Acute compression fracture of T7-T8, likely due to below, likely pathological fracture Chronic T11 fracture Spinal stenosis at lumbar region DAVID due to VMN, resolved Abdominal pain, due to below Constipation, due to below Hypercalcemia, due to below primary hyperparathyroidism, likely osteoporosis, likely, due to above Hiatal hernia Acute exacerbation of congestive heart failure HFpEF Gout Hx Afib Hx DVT on Chronic AC (eliquis) hx epilepsy. on phenytoin. poor surgical candidate Discharge plan : - For pain take Tylenol OTC 1st line, second-line ibuprofen 400 maximum once daily, for 3rd line take [place] 5 up to 3 times daily. - Take baclofen 10 mg as needed up to twice daily, take if above pain medications are ineffective in controlling pain - Take Lyrica 50 mg twice daily. Can hold off use if patient's starts becoming excessively drowsy. - We will send home health for physical therapy. - use TLOS brace while ambulating. Ambulate with walker. - Follow up with endocrinology to continue PTH scan and workup for possible primary hyperparathyroidism - follow up with spinal surgery to evaluate ongoing changes of thoracic fracture - start alendronate 70 Mg once weekly. Drink plenty of water after intake. Sit straightfor least 30 minutes intake before breakfast with no other intake other than water. - continue other home medications not mentioned above - decrease Lasix furosemide 40 mg intake from twice daily to once daily in the morning. - hold off taking prednisone, potassium supplements, metolazone - follow up with PCP to review discharge. Condition at Discharge: Guarded Final Diagnosis/Problems List Chronic back pain may due to acute on chronic fracture of vertebral bodies Acute compression fracture of T7-T8, likely due to below, likely pathological fracture Chronic T11 fracture Spinal stenosis at lumbar region DAVID due to VMN, resolved Abdominal pain, due to below Constipation, due to below Hypercalcemia, due to below primary hyperparathyroidism, likely osteoporosis, likely, due to above Hiatal hernia Acute exacerbation of congestive heart failure HFpEF Gout Hx Afib Hx DVT on Chronic AC (eliquis) hx epilepsy. on phenytoin. poor surgical candidate Discharge Disposition: Home with Health Services Discharge Instruct/Medications Diet: Cardiac 2g Na,low cholest Activity: No Restrictions, As Tolerated Follow Up/Referral: See below Medications: See below Discharge Statement: "Patient was advised to return to the ER or call 911 if any headaches, dizziness, shortness of breath, chest pain, abdominal pain, bleeding, fevers, or worsening of medical condition. Patient was counseled about treatment plan, medications, possible side effects, patientverbalized understanding. All questions were answered to the best of my ability. This discharge took greater then 30 minutes in planning, reviewing documentation, counseling the patient, and discussing with other team members." Date of Service: Aug 18, 2024 Billing Provider: TITA SANON MD Common Visit Codes: 29987-FOV/OBS DISCH DAY >30min TITA SANON MD Aug 18, 2024 15:36
== END 2024-08-18 18:25 | disposition home health service (06) | DRG 194 ==
LOC: ER 11:26 → OVERFLOW 23:27 → TELE-WESTW 08-10 04:30
PROVIDERS: ADMIT Student in an Organized Health Care Education/Training Program; ATTEND Student in an Organized Health Care Education/Training Program
DX: I13.0 Hypertensive heart and chronic kidney disease with heart failure and stage 1 through stage 4 chronic kidney disease, or unspecified chronic kidney disease (principal); N17.0 Acute kidney failure with tubular necrosis; E11.22 Type 2 diabetes mellitus with diabetic chronic kidney disease; E11.40 Type 2 diabetes mellitus with diabetic neuropathy, unspecified; G40.909 Epilepsy, unspecified, not intractable, without status epilepticus; I48.91 Unspecified atrial fibrillation; M48.54XA Collapsed vertebra, not elsewhere classified, thoracic region, initial encounter for fracture; K44.9 Diaphragmatic hernia without obstruction or gangrene; K76.0 Fatty (change of) liver, not elsewhere classified; Z68.33 Body mass index [BMI] 33.0-33.9, adult; N18.30 Chronic kidney disease, stage 3 unspecified; F32.9 Major depressive disorder, single episode, unspecified; F03.A4 Unspecified dementia, mild, with anxiety; I70.0 Atherosclerosis of aorta; E66.01 Morbid (severe) obesity due to excess calories; N40.0 Benign prostatic hyperplasia without lower urinary tract symptoms; M10.9 Gout, unspecified; F41.1 Generalized anxiety disorder; M81.0 Age-related osteoporosis without current pathological fracture; M51.34 Other intervertebral disc degeneration, thoracic region; M48.07 Spinal stenosis, lumbosacral region; K59.00 Constipation, unspecified; K43.9 Ventral hernia without obstruction or gangrene; K40.90 Unilateral inguinal hernia, without obstruction or gangrene, not specified as recurrent; E78.5 Hyperlipidemia, unspecified; G89.29 Other chronic pain; E21.0 Primary hyperparathyroidism; M43.8X4 Other specified deforming dorsopathies, thoracic region; Z90.13 Acquired absence of bilateral breasts and nipples; Z86.718 Personal history of other venous thrombosis and embolism; Z85.3 Personal history of malignant neoplasm of breast; Z82.49 Family history of ischemic heart disease and other diseases of the circulatory system; Z79.4 Long term (current) use of insulin; I50.33 Acute on chronic diastolic (congestive) heart failure; M48.061 Spinal stenosis, lumbar region without neurogenic claudication; Z79.01 Long term (current) use of anticoagulants
CPT/HCPCS: 36415; 70450; 70551; 71045; 72146; 72148; 73020; 73030; 73501; 73502; 74176; 80048; 80053; 81001; 82040; 82306; 83605; 83690; 83735; 83880; 83970; 84100; 84484; 85025; 93306; 96374; 96375; 97110; 97116; 97530; 99291; G0378; J2405